=== PATIENT | female | born 1960 | race Caucasian/White ===

== ENCOUNTER → 2016-08-09 | Outpatient (REF) | payer MEDICARE, OTHER ==
[~2016-08-09] MED LIST: ALBU1.25 INH; CLON-412 PO; COMP1TAB PO; COUM1TAB19 PO; COUM7.5T PO; CYMB1CAP4 PO; PROBCAP4 PO; SYNT50TA PO; ZOFR20TA SL
== END ==
LOC: M SFHCLERA 16:41
PROVIDERS: ATTEND Family Medicine
DX: R30.0 Dysuria (principal); Z79.01 Long term (current) use of anticoagulants
CPT/HCPCS: 81002; 85610; 87086; G0463

== ENCOUNTER → 2016-08-29 | Outpatient (REF) | payer MEDICARE, OTHER | LOC: M SFHCLERA 15:22 | PROVIDERS: ATTEND Family Medicine | DX: R10.9 Unspecified abdominal pain (principal) | CPT/HCPCS: 81002; 87086; G0463 ==

== ENCOUNTER → 2016-09-13 | Outpatient (REF) | payer MEDICARE, OTHER ==
[2016-09-13 20:45] LABS: MEAN CORPUSCULAR HEMOGLOBIN 29.8 pg (27.0-33.0); MEAN CORPUSCULAR VOLUME 90.5 fl (80.0-96.0); RED CELL DISTRIBUTION WIDTH 13.3 % (11.5-14.5)
[2016-09-13 20:53] LABS: ALBUMIN/GLOBULIN RATIO 1.11 (1.00-1.93); ALKALINE PHOSPHATASE 124 U/L (45-117); ALT/SGPT 19 U/L (12-78); ANION GAP 8 MEQ/L (8-16); AST/SGOT 14 U/L (15-37); BILIRUBIN,TOTAL 0.3 MG/DL (0.2-1.0); BLOOD UREA NITROGEN 12 MG/DL (7-18); CALCIUM LEVEL 8.8 MG/DL (8.5-10.1); CARBON DIOXIDE LEVEL 26 MEQ/L (21-32); CHLORIDE LEVEL 107 MEQ/L (98-107); CHOLESTEROL LEVEL 228 MG/DL (<200); CREATININE FOR GFR 0.93 MG/DL (0.55-1.02); GLOMERULAR FILTRATION RATE > 60.0 (>51); GLUCOSE, FASTING 96 MG/DL (70-105); POTASSIUM SERUM 3.7 MEQ/L (3.5-5.1); SODIUM LEVEL 141 MEQ/L (136-145); TOTAL PROTEIN 7.6 GM/DL (6.4-8.2); TRIGLYCERIDES LEVEL 329 MG/DL (<150)
[2016-09-13 21:00] LABS: CALCIUM OXALATE CRYSTALS LARGE; YEAST LIKE CELL URINE AUTO SMALL
== END ==
LOC: M SFHCLERA 17:19
PROVIDERS: ATTEND Family Medicine
DX: R32 Unspecified urinary incontinence (principal); Z86.718 Personal history of other venous thrombosis and embolism; Z79.899 Other long term (current) drug therapy

== ENCOUNTER → 2016-09-18 | Outpatient (REF) | payer MEDICARE, OTHER ==
[2016-09-18 19:04] LABS: CALCIUM OXALATE CRYSTALS LARGE
== END ==
LOC: M LAB REF 17:10
PROVIDERS: ATTEND Nurse Practitioner Family
DX: R31.9 Hematuria, unspecified (principal)
CPT/HCPCS: 51798; 81001; 87086; 88108; G0463

== ENCOUNTER → 2016-09-28 | Outpatient (CLI) | payer MEDICARE ==
[~2016-09-28] MED LIST changes: +ISOVUE-370 76% 100ML VIAL (Q9967) As Ordered ONE
--- NOTE | 2016-09-28 16:27 | REP ---
CT abdomen pelvis without IV or bowel contrast: Comparison is 10/05/2011. There is a 4 ml calculus posterior laterally in the urinary bladder on the left. This could be in the distal intramural portion of the left ureter or could have recently passed into the urinary bladder. Additionally there is a 4 mm calculus in the distal left ureter at the level at the level of the left acetabulum. There is no left hydronephrosis or hydroureter. On the comparison study there was a small 3 mm left renal calculus. This is no longer present on the study today. There are into right renal calculi in the lower pole, nonobstructive. These were also present previously. The visualized lung shi are unremarkable. The hepatic parenchyma, gallbladder, pancreas and spleen are unremarkable and unchanged except for fatty atrophy of the pancreas, unchanged. The adrenals are unremarkable. Abdominal aorta is unremarkable except for calcified atheroma. There is no bowel distension or obstruction. Mesentery is unremarkable. Pelvis: The appendix is unremarkable. There is a hysterectomy. The vaginal cuff and adnexa are unremarkable. There is no ascites or adenopathy. The pelvic bowel loops are unremarkable. Impression: There are two calcifications in the distal left ureter as described. However, there is no hydronephrosis. The left renal calculus identified on the comparison study is no longer present. There are two nonobstructive right renal calculi, unchanged. Surgical staple lines are again noted in the pelvis bilaterally. The patient has a hysterectomy. This is unchanged. Fatty atrophy of the pancreas, unchanged. Signed by Mik Pinon MD 09/28/2016 04:19 P
== END ==
LOC: M RAD 15:14
PROVIDERS: ATTEND Nurse Practitioner Family
DX: R31.9 Hematuria, unspecified (principal)
CPT/HCPCS: 74178; Q9967

== ENCOUNTER → 2016-10-11 | Outpatient (REF) | payer MEDICARE, OTHER ==
[~2016-10-11] MED LIST changes: +ADVI200C5 PO; +CEPH500C PO; +GABA-283 PO; -ISOVUE-370 76% 100ML VIAL (Q9967) As Ordered ONE; +K-TA1TAB PO; +LEVA1TAB2 PO; +OXYB5TAB10 PO; +OXYC1TAB23 PO; +PRED20TA PO; +RANI75TA9 PO; +RISATAB3 PO
[2016-10-11 20:18] LABS: INR 1.77
== END ==
LOC: M SFHCLERA 16:39
PROVIDERS: ATTEND Family Medicine
DX: Z51.81 Encounter for therapeutic drug level monitoring (principal); Z79.01 Long term (current) use of anticoagulants
CPT/HCPCS: 85610; G0463

== ENCOUNTER 2016-10-23 19:10 | Emergency (ER) | payer MEDICARE, OTHER ==
[~2016-10-23] VITALS: Ht 157.5 cm; Wt 79.9 kg
[~2016-10-23 19:10] MED LIST changes: -ADVI200C5 PO; -CEPH500C PO; -GABA-283 PO; -K-TA1TAB PO; -LEVA1TAB2 PO; -OXYB5TAB10 PO; -OXYC1TAB23 PO; -PRED20TA PO; -RANI75TA9 PO; -RISATAB3 PO
[2016-10-23] MEDS ORDERED: PRED20TA PO (19:30)
[2016-10-23] MEDS ORDERED: LEVA1TAB2 PO (19:30)
[2016-10-23] MEDS ORDERED: GABA-283 PO (19:30)
[2016-10-23 21:03] LABS: BASO # 0.1 K/mm3 (0.0-0.2); BASO % 0.4 % (0.0-1.0); EOS # 0.2 K/mm3 (0.0-0.50); EOS % 1.4 % (0.0-3.0); LARGE UNSTAINED CELL # 0.1 K/mm3 (0.0-0.4); LARGE UNSTAINED CELL % 0.3 % (0.0-4.0); LYMPH # 1.6 K/mm3 (1.5-4.5); LYMPH % 9.4 % (24.0-44.0); MEAN CORPUSCULAR HEMOGLOBIN 29.6 pg (27.0-33.0); MEAN CORPUSCULAR HGB CONC 33.4 g/dl (32.0-36.5); MEAN CORPUSCULAR VOLUME 88.5 fl (80.0-96.0); MONO # 0.3 K/mm3 (0.0-0.8); MONO % 1.7 % (0.0-5.0); NEUTROPHILS # 14.6 K/mm3 (1.8-7.7); NEUTROPHILS % 86.8 % (36.0-66.0); PLATELET COUNT, AUTOMATED 305 k/mm3 (150-450); RED CELL DISTRIBUTION WIDTH 13.2 % (11.5-14.5); WHITE BLOOD COUNT 16.8 K/mm3 (4.0-10.0)
[2016-10-23 21:30] LABS: INR 5.71
[2016-10-23 21:42] LABS: CREATININE FOR GFR 1.07 MG/DL (0.55-1.02); GLOMERULAR FILTRATION RATE 56.9 (>51); POTASSIUM SERUM 3.9 MEQ/L (3.5-5.1)
[2016-10-23] MEDS ORDERED: ISOVUE-370 76% 100ML VIAL (Q9967) As Ordered ONE (21:55)
[2016-10-23 23:10] VITALS: BP 123/66
[2016-10-23] MEDS ORDERED: PHYTONADIONE 5 MG TAB PO ONE (23:30)
--- NOTE | 2016-10-24 06:47 | REPUSA ---
CT angiogram of the chest Clinical statement: hemoptysis. Technique: Multiple axial CT images were obtained from the thoracic inlet through the upper abdomen a fter a bolus administration of nonionic intravenous contrast. Coronal and sagittal reconstructions we re also obtained. Comparison: None. Findings: The pulmonary arteries are well-opacified with contrast, with no intraluminal filling defec ts to suggest embolism. The thoracic aorta is unremarkable. Thyroid gland is within normal limits. Th ere is no thoracic lymphadenopathy. There are no pericardial or pleural effusions. There is an irregu lar nodule in the left lung apex, measuring 2.4 x 1.2 cm. There is a small spiculated lesion in the l ateral left upper lobe measuring 1.1 x 0.8 cm. Limited imaging of the upper abdomen is unremarkable. There are no suspicious osseous lesions. Impression: 1. Large irregular nodule in the left lung apex. Smaller spiculated lesion in the lateral left upper lobe. Biopsy should be considered. Alternatively, CT/PET scan could be performed. 2. No evidence of pulmonary embolism. 3. No other acute infiltrates.
--- NOTE | 2016-10-24 10:25 | ED PDOC ---
Post-Departure Follow-Up radiology report faxed to [facility] Martita Vasquez MD Oct 24, 2016 10:25
== END 2016-10-23 23:28 | disposition home or self-care (01) ==
LOC: M ED 20:16
DX: R79.1 Abnormal coagulation profile (principal); R04.2 Hemoptysis; F17.210 Nicotine dependence, cigarettes, uncomplicated; R91.8 Other nonspecific abnormal finding of lung field; Z86.718 Personal history of other venous thrombosis and embolism; Z79.01 Long term (current) use of anticoagulants; Z79.899 Other long term (current) drug therapy
CPT/HCPCS: 71260; 80048; 85025; 85610; 85730; 99283; Q9967

== ENCOUNTER → 2016-11-02 | Outpatient (REF) | payer MEDICARE, OTHER ==
[~2016-11-02] MED LIST changes: +ADVI200C5 PO; +CEPH500C PO; +GABA-283 PO; +K-TA1TAB PO; +LEVA1TAB2 PO; +OXYB5TAB10 PO; +OXYC1TAB23 PO; +PRED20TA PO; +RANI75TA9 PO; +RISATAB3 PO
== END ==
LOC: M SFHCLERA 13:38
PROVIDERS: ATTEND Family Medicine
DX: Z86.718 Personal history of other venous thrombosis and embolism (principal)

== ENCOUNTER 2016-11-27 10:23 | Day surgery (SDC) | payer MEDICARE ==
[~2016-11-27] VITALS: Ht 157.5 cm; Wt 80.3 kg
[~2016-11-27 10:23] MED LIST changes: -ADVI200C5 PO; -CEPH500C PO; +CONRAY-60 60% 50ML VIAL (Q9961) As Ordered ONE; -K-TA1TAB PO; -OXYB5TAB10 PO; -OXYC1TAB23 PO; -RANI75TA9 PO; -RISATAB3 PO
[2016-11-27] MEDS ORDERED: LIDOCAINE 1% SDV 5 ML VIAL SQ ONE (10:30)
[2016-11-27] MEDS ORDERED: LR 1,000 ML IV ONE (11:00)
[2016-11-27 11:56] LABS: INR 1.07
[2016-11-27] MEDS ORDERED: dexameTHASONE 4 MG/ML 1ML VIAL (J1100) As Ordered ONE (14:04)
[2016-11-27] MEDS ORDERED: PROPOFOL 200 MG/20 ML VIAL As Ordered ONE (14:04)
[2016-11-27] MEDS ORDERED: ROCURONIUM BROMIDE 50 MG/5 ML VIAL/SYRINGE As Ordered ONE (14:04)
[2016-11-27] MEDS ORDERED: ONDANSETRON 4MG/2ML VIAL (J2405) As Ordered ONE (14:04)
[2016-11-27] MEDS ORDERED: MIDAZOLAM INJ 2 MG/2 ML VIAL (J2250) As Ordered ONE (14:04)
[2016-11-27] MEDS ORDERED: fentaNYL 250 MCG/5 ML INJECTION (J3010) As Ordered ONE (14:04)
[2016-11-27] MEDS ORDERED: LIDOCAINE 2% INJ 100 MG/5 ML SDV (FOR ANES.) As Ordered ONE (14:04)
[2016-11-27] MEDS ORDERED: KETOROLAC 60 MG/2 ML VIAL (J1885) As Ordered ONE (16:09)
[2016-11-27] MEDS: PERCOCET 5MG/325MG TAB PO PRN ×2 (16:28→17:19)
[2016-11-27] MEDS ORDERED: HYDROmorphone HCL 2 MG/ML 1ML VIAL (J1170) As Ordered ONE (16:28)
[2016-11-27] MEDS ORDERED: PERCOCET 5MG/325MG TAB As Ordered ONE (16:29)
[2016-11-27] MEDS ORDERED: oxyBUTYnin 5 MG TAB PO PRN (16:30)
[2016-11-27] MEDS ORDERED: PERCOCET 5MG/325MG TAB PO PRN ×2 (16:30)
[2016-11-27] MEDS: fentaNYL 100 MCG/2 ML INJECTION (J3010) IV PRN ×4 (16:42→17:06)
[2016-11-27] MEDS ORDERED: ONDANSETRON 4MG/2ML VIAL (J2405) IV PRN (16:45)
[2016-11-27] MEDS ORDERED: LR 1,000 ML IV SCH (16:45)
--- NOTE | 2016-11-27 16:49 | REP ---
Bilateral retrograde pyelogram: The procedure is performed by the urologist, Dr. Bowie. The final film demonstrates bilateral ureteral stents with the proximal and distal pigtails in satisfactory positions. Fluoroscopic exposure time is 29 seconds. Intraoperative films are performed with last image hold technology. These images require no additional radiation. Signed by Mik Pinon MD 11/27/2016 04:40 P
[2016-11-27] MEDS ORDERED: BELLADONNA ALKALOIDS/OPIUM SUPP PR ONE (18:00)
[2016-11-27] MEDS ORDERED: KETOROLAC 30 MG/ML VIAL (J1885) As Ordered ONE (20:05)
[2016-11-27] MEDS ORDERED: oxyBUTYnin 5 MG TAB PO ONE (20:15)
[2016-11-27] MEDS ORDERED: KETOROLAC 30 MG/ML VIAL (J1885) IV ONE (20:15)
[2016-11-27 21:13] VITALS: BP 133/78
--- NOTE | 2016-11-28 16:33 | RO ---
DATE OF PROCEDURE: 11/27/2016 PREPROCEDURE DIAGNOSIS: Bilateral kidney stones. POSTPROCEDURE DIAGNOSIS: Bilateral kidney stones. PROCEDURE: Cystoscopy, bilateral ureteroscopy with right-sided laser lithotripsy and bilateral basket extraction of stones, bilateral retrograde pyelograms with intraoperative interpretation of images, bilateral ureteral stent placement. SURGEON: Dr. Yousuf Bowie [employer] HEAD: None. ANESTHESIA: General. OPERATIVE INDICATIONS: This is a 56-year-old female who was found to have obstructing left-sided ureteral stones as well as large right-sided kidney stones. It was recommended she be brought to the operating room today for the above listed procedure. DESCRIPTION OF PROCEDURE: The patient was brought to the operating room where general anesthesia was induced. Prophylactic antibiotics were infused. She was then placed in the dorsal lithotomy position and prepped and draped in the usual sterile fashion. The rigid cystoscope was then inserted into the urethral meatus and advanced to the bladder. A guidewire was then advanced up the left collecting system. The wire was secured to the drape to serve as a safety wire. We then went up the left collecting system with the short semi-rigid ureteroscope and within the distal left ureter two stones were seen, one of which was about 4 mm in size and the other one was 3 mm in size. Both of these stones were removed with a basket. At this point, a retrograde pyelogram was then performed. It was notable for moderate left hydroureteronephrosis with no extravasation. I then utilized the previously placed wire to advance a 6-Macanese x 22-32 cm JJ ureteral stent up into the left collecting system. The wire was then removed and there were adequate curls of the stent in the left renal pelvis and in the bladder. I then advanced the wire up the right collecting system and the wire was then utilized to advance a ureteral access sheath up into the right collecting system. The wire was then secured to the drapes to serve as a safety wire. I then went up the access sheath with a flexible ureteroscope and within the kidney, two stones were seen within the lower pole calyx. The smallest stone was approximately 6-7 mm in size. The stone was then repositioned with the basket and lasered into smaller pieces. All of the pieces were removed with the basket. The largest stone was approximately 1 cm in size and of note, I grasped it with the basket and tried to remove it from this lower pole calyx, but the stone was too large to be removed from the calyx. Because of its location in the lower pole calyx, I was not able to see it well to laser it with the laser fiber. Because of this, I was not able to remove the stone. At this point, the ureteroscope was utilized to get a retrograde pyelogram on the right side. It was negative for extravasation. At this point, the ureteroscope was removed along with the access sheath and no stones were seen within the ureter. I then utilized the previously placed wire to advance a 6-Macanese x 22-32 cm JJ ureteral stent up into the right collecting system. The wire was then removed, and there were adequate curls of the stent in the right renal pelvis and in the bladder. At this point, the bladder was then emptied of all fluids, and this marked the conclusion of the procedure. The patient was taken out of the dorsal lithotomy position, awakened from anesthesia and transported to the recovery room in stable condition. ESTIMATED BLOOD LOSS: 0 mL. COMPLICATIONS: None. SPECIMENS: Kidney stones. PLAN: The patient will followup in the clinic in a few weeks for stent removal. SANJEEV
== END 2016-11-27 20:55 | disposition home or self-care (01) ==
LOC: M SDC 10:23
PROVIDERS: ATTEND Urology
DX: N20.0 Calculus of kidney (principal)

== ENCOUNTER 2016-11-29 15:31 | Inpatient (IN) | payer MEDICARE ==
[~2016-11-29] VITALS: Ht 157.5 cm; Wt 81.8 kg
[~2016-11-29 15:31] MED LIST changes: -CONRAY-60 60% 50ML VIAL (Q9961) As Ordered ONE
[2016-11-29] MEDS ORDERED: OXYB5TAB10 PO (15:42)
[2016-11-29] MEDS ORDERED: ADVI200C5 PO (15:42)
[2016-11-29] MEDS ORDERED: OXYC1TAB23 PO (15:42)
[2016-11-29] MEDS ORDERED: NS 1,000 ML IV ONE (16:00)
[2016-11-29] MEDS ORDERED: ONDANSETRON 4MG/2ML VIAL (J2405) IV ONE (16:00)
[2016-11-29] MEDS ORDERED: MORPHINE 4 MG/ML 1ML SYRINGE IV ONE (16:00)
[2016-11-29] MEDS ORDERED: cefTRIAXone SOD 1 GM in D5W MINI-BAG PLUS 50 ML IV ONE (16:00)
[2016-11-29 16:21] LABS: BASO # 0.2 K/mm3 (0.0-0.2); BASO % 1.2 % (0.0-1.0); EOS # 0.4 K/mm3 (0.0-0.50); EOS % 2.1 % (0.0-3.0); LARGE UNSTAINED CELL # 0.1 K/mm3 (0.0-0.4); LARGE UNSTAINED CELL % 0.7 % (0.0-4.0); LYMPH # 2.1 K/mm3 (1.5-4.5); LYMPH % 11.3 % (24.0-44.0); MEAN CORPUSCULAR HEMOGLOBIN 30.1 pg (27.0-33.0); MEAN CORPUSCULAR HGB CONC 34.7 g/dl (32.0-36.5); MEAN CORPUSCULAR VOLUME 86.7 fl (80.0-96.0); MONO # 1.2 K/mm3 (0.0-0.8); MONO % 6.9 % (0.0-5.0); NEUTROPHILS # 13.4 K/mm3 (1.8-7.7); NEUTROPHILS % 77.8 % (36.0-66.0); PLATELET COUNT, AUTOMATED 221 k/mm3 (150-450); RED CELL DISTRIBUTION WIDTH 13.2 % (11.5-14.5); WHITE BLOOD COUNT 17.2 K/mm3 (4.0-10.0)
[2016-11-29 16:44] LABS: CALCIUM LEVEL 9.2 MG/DL (8.5-10.1); CREATININE FOR GFR 1.38 MG/DL (0.55-1.02); GLOMERULAR FILTRATION RATE 42.4 (>51); POTASSIUM SERUM 3.9 MEQ/L (3.5-5.1)
--- NOTE | 2016-11-29 17:56 | REP ---
CT of the abdomen pelvis without IV or bowel contrast: Comparison is 09/28/2016. There are bilateral nephrostomies. There is no hydronephrosis. No renal or ureteral calculi are identified. The bladder is collapsed and is difficult to assess. No definite bladder calculi are identified. There is no perinephric stranding. The visualized lung shi are unremarkable. The unenhanced liver, gallbladder, pancreas and spleen are unchanged. Fatty atrophy of the pancreas is again identified. The adrenals are unremarkable. There is a right renal upper pole cyst, unchanged. There is no hydronephrosis. There are no renal or ureteral calculi. There are bilateral nephrostomies. No perinephric stranding. No bowel distension. Pelvis: There is no adenopathy or ascites. The pelvic bowel loops are unremarkable. Impression: Bilateral nephrostomies. No hydronephrosis. No renal or ureteral calculi. No perinephric stranding. Signed by Mik Pinon MD 11/29/2016 05:47 P
--- NOTE | 2016-11-29 18:03 | REP ---
REASON: Bilateral ureteral stent placement. Bilateral double J stent catheters are present. The proximal portion of each appears to be in the renal pelvic region on the distal portion of each in the urinary bladder region Signed by Alfred Taylor DO 11/30/2016 10:42 A
[2016-11-29] MEDS ORDERED: RANI75TA9 PO (18:42)
[2016-11-29] MEDS ORDERED: ALBUTEROL SULFATE 2.5 MG/0.5 ML INH NEB SOLN INH PRN (20:15)
[2016-11-29 20:35] VITALS: BP 130/68
[2016-11-29] MEDS ORDERED: KCL 20MEQ IN D5/0.45NS 1000ML 1,000 ML IV SCH (20:45)
[2016-11-29] MEDS ORDERED: MORPHINE 4 MG/ML 1ML SYRINGE IV PRN (20:45)
[2016-11-29] MEDS ORDERED: ONDANSETRON 4MG/2ML VIAL (J2405) IV PRN (21:00)
[2016-11-29] MEDS ORDERED: cefTRIAXone SOD 1 GM in D5W MINI-BAG PLUS 50 ML IV SCH (21:00)
[2016-11-29] MEDS: GABAPENTIN 400 MG CAP PO SCH (21:07)
[2016-11-29] MEDS: PERCOCET 5MG/325MG TAB PO PRN (21:08)
[2016-11-29] MEDS: GENTAMICIN 80 MG in APPROPRIATE DILUENT 1 EA IV SCH (21:08)
[2016-11-30] MEDS ORDERED: NS 500 ML IV ONE (05:15)
[2016-11-30 05:16] LABS: ADD MANUAL DIFFER YES; MEAN CORPUSCULAR HEMOGLOBIN 29.8 pg (27.0-33.0); MEAN CORPUSCULAR HGB CONC 33.8 g/dl (32.0-36.5); MEAN CORPUSCULAR VOLUME 88.3 fl (80.0-96.0); PLATELET COUNT, AUTOMATED 167 k/mm3 (150-450); RED CELL DISTRIBUTION WIDTH 13.4 % (11.5-14.5); WHITE BLOOD COUNT 16.5 K/mm3 (4.0-10.0)
[2016-11-30] MEDS ORDERED: IBUPROFEN 800 MG TAB PO ONE (05:30)
[2016-11-30 05:37] LABS: ALBUMIN 3.2 GM/DL (3.2-5.2); ALBUMIN/GLOBULIN RATIO 0.73 (1.00-1.93); BILIRUBIN,TOTAL 0.4 MG/DL (0.2-1.0); CALCIUM LEVEL 8.7 MG/DL (8.5-10.1); CREATININE FOR GFR 1.53 MG/DL (0.55-1.02); GLOMERULAR FILTRATION RATE 37.7 (>51); POTASSIUM SERUM 4.3 MEQ/L (3.5-5.1); TOTAL PROTEIN 7.6 GM/DL (6.4-8.2)
[2016-11-30 05:50] LABS: BANDS 1 % (< 11); EOSINOPHILS 1 % (0-5)
--- NOTE | 2016-11-30 05:53 | IPNPDOC ---
Text Note Date of Service The patient was seen on 11/30/16. NOTE Patient is a 56 yo F who was admitted for pyelonephritis and apparently a postoperative infection after a lithotripsy last week. Nurse stated patient was discharged on the . I was informed around 4 AM this morning that Ms. Mancera had a temperature of 104.6, a RR of 22, which was new. Her WBC was 17.2 on labs from admission. Nurse stated she placed ice bags and had given percocet ~10 minutes before I spoke to her between 4 and 4:30 AM. Nurse said patient had fever, chills, pain in suprapubic area, but no chest pain. Nurse stated patient had not urinated much and only urinated 100 ccs and a bladder scan had shown nothing despite patient being on D5 1/2 NS at a rate of 100 mLs/hr. Nurse stated that patient had SOB with walking. I asked nurse to take a new set of vital signs. I was told new VS were: T 104.5, P 120-125, RR 22, O2 saturation 83% on room air, BP 155/75. Patient was placed on 3 liters oxygen via nasal cannula and patient's O2 saturation went up to 92%. She urinated around 50 ccs of dark urine before I saw her without blood. Nurse stated patient began to have a hacking cough which was more frequent than before. Patient herself stated to me that her cough felt worse than prior and she coughed up "gutierrez" phlegm yesterday. Patient denied chest pain, admitted to SOB that was new and worse than at her baseline as she has COPD. She admitted to some nausea as well. She denied abdominal pain. She admitted to suprapubic pain. Brief Physical Examination: Heart: Tachycardic, Regular Rhythm Lungs: mild crackles at bases and scattered end expiratory wheezes appreciable. Abdomen: soft, nontender, nondistended bowel sounds present : +Suprapubic tenderness to palpation. I ordered STAT labs: blood cx, CBC, CMP, lactic acid level, ABG. In addition: I ordered a PA and Lateral CXR. I also ordered a 500 CC bolus and a 1 time dose of motrin 800 mg. I had informed the nurse to inform the primary team and update them regarding this patient's condition. VS,Chelye, I+O VS, Fishbone, I+O Laboratory Tests 11/29/16 16:03 Red Blood Count 4.90, Mean Corpuscular Volume 86.7, Mean Corpuscular Hemoglobin 30.1, Mean Corpuscular Hemoglobin Concent 34.7, Red Cell Distribution Width 13.2 , Neutrophils (%) (Auto) 77.8 H, Lymphocytes (%) (Auto) 11.3 L, Monocytes (%) ( Auto) 6.9 H, Eosinophils (%) (Auto) 2.1, Basophils (%) (Auto) 1.2 H, Neutrophils # (Auto) 13.4 H, Lymphocytes # (Auto) 2.1, Monocytes # (Auto) 1.2 H , Eosinophils # (Auto) 0.4, Basophils # (Auto) 0.2, Calcium Level 9.2 11/30/16 05:03 Red Blood Count 4.83, Mean Corpuscular Volume 88.3, Mean Corpuscular Hemoglobin 29.8, Mean Corpuscular Hemoglobin Concent 33.8, Red Cell Distribution Width 13.4 Vital Signs Date Time Temp Pulse Resp B/P (MAP) Pulse Ox O2 Delivery O2 Flow Rate FiO2 11/30/16 04:34 Nasal Cannula 3.0 11/29/16 21:38 18 11/29/16 20:35 99.0 100 130/68 (88) 95 I&O- Last 24 Hours up to 6 AM 11/30/16 06:00 Intake Total 0 ml Output Total 200 ml Balance -200 ml GME ATTESTATION GME ATTESTATION My preceptor for this patient encounter was Dr. Canelo Forbes, and was physically present in the building during the encounter and was fully available. As needed, all aspects of the patient interview, examination, medical decision making process, and medical care plan development were reviewed and approved by the preceptor. Preceptor is aware and concurs with the plan as stated in the body of this note and will attest to such by his/her cosignature. MAXINE CHAMBERS OGME-1 Nov 30, 2016 05:52
[2016-11-30 05:59] LABS: ABG BASE EXCESS -1.6 (-2.0-2.0); ABG HCO3 22.1 MEQ/L (22.0-26.0); ABG PARTIAL PRESSURE CO2 34.3 mmHg (35.0-45.0); ABG PARTIAL PRESSURE O2 52.1 mmHg (75.0-100.0); ABG STANDARD HCO3 22.9 MEQ/L (22.0-26.0); ABG TOTAL CO2 23.1 MEQ/L (22.0-29.0); ABG pH (ARTERIAL) 7.426 UNITS (7.350-7.450)
[2016-11-30 06:00] VITALS: BP 110/72
--- NOTE | 2016-11-30 06:00 | REPUSA ---
CLINICAL HISTORY: Fever and cough. COMMENTS: PA and lateral views of chest reveal airspace infiltrates in the lingula. Airspace infiltrates in the right lung base. The cardiac silhouette is enlarged. The mediastinum and pulmonary vessels appear normal. Aorta is tor tuous. Degenerative changes are noted in the thoracic spine. IMPRESSION: Airspace infiltrates in the lingula. Airspace infiltrates in the right lung base. Enlarged cardiac silhouette. Tortuous aorta. Thank you for your kind referral of this patient.
[2016-11-30] MEDS: GENTAMICIN 80 MG in APPROPRIATE DILUENT 1 EA IV SCH ×2 (06:59→14:35)
[2016-11-30] MEDS: NS 1,000 ML IV SCH ×3 (07:45→22:31)
--- NOTE | 2016-11-30 08:54 | SMCUROLCON ---
Urology Consultation General Date of Consultation 11/30/16 Reason For Consultation This patient is seen for Pyelonephritis. 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 She notes that since her surgery she has had constant bladder pain and dysuria. She denied flank pain. Labs in the ED were notable for a WBC of 17.2 and [address] fevers. A CT A/P was obtained as well and notable for b/l stents in good position w/ no hydronephrosis and a residual 1cm lower pole right renal stone. Urine and blood cultures were obtained in the ED and rocephin and gentamicin were started. Despite this, the patient continued to spike fevers o/n up to 104. She was evaluated by the hospitalist service o/n and a CXR was obtained which was concerning for a possible right sided pneumonia. This morning the patient feels a little better. She notes that the bladder pain has not improved. Past Medical History Medical History see HPI Surgical Hstory see HPI Medications Current Medications Current Medications Acetaminophen (Tylenol Arthritis Er) 650 mg Q8HP PRN PO TEMP >101; MILD PAIN; Start 11/29/16 at 21:00; Stop 12/29/16 at 20:59 Albuterol Sulfate (Proventil Neb) 1.25 mg Q4HP PRN INH SHORTNESS OF BREATH; Start 11/29/16 at 20:15; Stop 12/29/16 at 20:14 Ceftriaxone Sodium 1 gm/ Dextrose 50 ml @ 100 mls/hr Q24H IV ; Start 11/29/16 at 21:00; Stop 12/06/16 at 20:59; Status Cancel Ceftriaxone Sodium 1 gm/ Dextrose 50 ml @ 100 mls/hr Q24H IV ; Start 11/30/16 at 16:00; Stop 12/07/16 at 15:59 Famotidine (Pepcid) 10 mg DAILY PO ; Start 11/30/16 at 09:00; Stop 12/30/16 at 08: 59 Gabapentin (Neurontin) 800 mg BID PO Last administered on 11/29/16 21:07; Start 11/29/16 at 21:00; Stop 12/29/16 at 20:59 Gentamicin Sulfate 80 mg/IV Miscellaneous Supplies 100 ml @ 200 mls/hr Q8H IV Last administered on 11/30/16 06:59; Start 11/29/16 at 22:00; Stop 12/06/16 at 21: 59 Home Med (Med Rec Complete!) ASDIRECTED XX ; Start 11/29/16 at 18:45; Stop at 18:46; Status DC Lactobacillus Acidophilus (Bacid) 1 ea DAILY PO ; Start 11/30/16 at 09:00; Stop 12/30/16 at 08:59 Levofloxacin 750 mg/IV Miscellaneous Supplies 150 ml @ 100 mls/hr Q48H IV ; Start 11/30/16 at 09:00; Stop 12/07/16 at 08:59 Morphine Sulfate (Morphine Sulfate Inj) 4 mg Q3HP PRN IV SEVERE PAIN (PS 8-10) ; Start 11/29/16 at 20:45; Stop 12/06/16 at 20:44 Ondansetron HCl (ZOFRAN INJection) 4 mg Q8HP PRN IV NAUSEA OR VOMITING; Start 11/29/16 at 21:00; Stop 12/29/16 at 20:59 Oxycodone HCl (Roxicodone, Oxyir) 5 mg Q4HP PRN PO SEVERE PAIN (PS 8-10); Start 11/29/16 at 21:00; Stop 12/06/16 at 20:59 Oxycodone/ Acetaminophen (Percocet 5mg/ 325mg Tablet) 1 tab Q4H PRN PO PAIN Last administered on 11/29/16 21:08; Start 11/29/16 at 20:15; Stop 12/06/16 at 20: 14 Potassium Chloride/Dextrose/ Sod Cl 1,000 ml @ 100 mls/hr Q10H IV Last administered on 11/29/16 20:45; Start 11/29/16 at 20:45; Stop 11/30/16 at 07:25; Status DC Sodium Chloride 1,000 ml @ 125 mls/hr Q8H IV Last administered on 11/30/16 07: 45; Start 11/30/16 at 07:30; Stop 12/30/16 at 07:29 Allergies Allergies: Coded Allergies: No Known Allergies (Unverified , 10/23/16) Review of Systems General: Reports: Chills Constitutional: Reports: Fever Skin: Denies: Rash, Lesions, Breakdown, Nail Changes Pulmonary: Denies: Dyspnea, Cough Cardiovascular: Denies Chest Pain, Denies Palpitations Gastrointestinal: Reports: Abdominal Pain Genitourinary: Reports: Dysuria Neurological: Denies: Weakness, Numbness, Incoordination, Change in Speech Psych: Reports: Mood Normal, Denies: Anxiety, Depression Physical Examination General Exam: Alert, Cooperative, No Acute Distress ENT EXAM: Atraumatic Chest Exam: Clear to auscultation Heart Exam: Rate Normal, Regular Rhythm Abdomen Exam: Other (mild suprapubic tenderness) Female Exam catheter in place draining tere colored urine Skin Exam: Nl turgor and temperature Neuro Exam: Normal Speech Psych Exam: Mental status NL, Mood NL Vital Signs/I&O Vital Signs Date Time Temp Pulse Resp B/P (MAP) Pulse Ox O2 Delivery O2 Flow Rate FiO2 11/30/16 06:00 103.0 115 18 110/72 (85) 92 Room Air 11/30/16 04:34 3.0 I&O- Last 24 Hours up to 6 AM 11/30/16 06:00 Intake Total 100 ml Output Total 300 ml Balance -200 ml Laboratory Data 24H Labs Laboratory Tests 2 11/29/16 16:03: White Blood Count 17.2H, Red Blood Count 4.90, Hemoglobin 14.8, Hematocrit 42.5 , Mean Corpuscular Volume 86.7, Mean Corpuscular Hemoglobin 30.1, Mean Corpuscular Hemoglobin Concent 34.7, Red Cell Distribution Width 13.2, Platelet Count 221, Neutrophils (%) (Auto) 77.8H, Lymphocytes (%) (Auto) 11.3L, Monocytes (%) (Auto) 6.9H, Eosinophils (%) (Auto) 2.1, Basophils (%) (Auto) 1.2H , Neutrophils # (Auto) 13.4H, Lymphocytes # (Auto) 2.1, Monocytes # (Auto) 1.2H , Eosinophils # (Auto) 0.4, Basophils # (Auto) 0.2, Large Unclassified Cells % 0.7, Large Unclassified Cells # 0.1, Urine Appearance CLOUDYH, Urine Color TERE , Urine pH 6.0, Urine Specific [place] 1.014, Urine Protein 2+H, Urine Glucose ( UA) NEGATIVE, Urine Ketones NEGATIVE, Urine Urobilinogen 0.2, Urine Bilirubin NEGATIVE, Urine Leukocyte Esterase 3+H, Urine Blood 3+H, Urine Nitrite POSITIVE , Urine WBC (Auto) TNTCH, Urine RBC (Auto) TNTCH, Urine Hyaline Casts (Auto) 7, Urine Bacteria (Auto) 1+H, Urine Squamous Epithelial Cells 0, Urine Amorphous Sediment SMALLH, Urine Sperm (Auto) , Anion Gap 12, Glomerular Filtration Rate 42.4L, Lactic Acid Level 1.9, Blood Urea Nitrogen 18, Creatinine 1.38H, Sodium Level 137, Potassium Level 3.9, Chloride Level 103, Carbon Dioxide Level 22, Calcium Level 9.2 11/30/16 05:03: Anion Gap 10, Glomerular Filtration Rate 37.7L, Lactic Acid Level 1.9, Blood Urea Nitrogen 15, Creatinine 1.53H, Sodium Level 135L, Potassium Level 4.3, Chloride Level 104, Carbon Dioxide Level 21, Calcium Level 8.7, Neutrophils 75, Band Neutrophils 1, Lymphocytes (Manual) 9L, Monocytes (Manual) 12H, Eosinophils (Manual) 1, Atypical Lymphocytes 2, Platelet Estimate NORMAL, Red Blood Cell Morphology NORMAL, Aspartate Amino Transf (AST/SGOT) 18, Alanine Aminotransferase (ALT/SGPT) 15, Alkaline Phosphatase 95, Total Bilirubin 0.4, Total Protein 7.6, Albumin 3.2, Albumin/Globulin Ratio 0.73L 11/30/16 05:54: Blood Gas Bicarbonate Standard 22.9, Arterial Blood pH 7.426, Arterial Blood Partial Pressure CO2 34.3L, Arterial Blood Partial Pressure O2 52.1L, Arterial Blood Total CO2 23.1, Arterial Blood HCO3 22.1, Arterial Blood Base Excess -1.6 , Arterial Blood Oxygen Saturation 88.2L CBC/BMP Laboratory Tests 11/29/16 16:03 Red Blood Count 4.90, Mean Corpuscular Volume 86.7, Mean Corpuscular Hemoglobin 30.1, Mean Corpuscular Hemoglobin Concent 34.7, Red Cell Distribution Width 13.2 , Neutrophils (%) (Auto) 77.8 H, Lymphocytes (%) (Auto) 11.3 L, Monocytes (%) ( Auto) 6.9 H, Eosinophils (%) (Auto) 2.1, Basophils (%) (Auto) 1.2 H, Neutrophils # (Auto) 13.4 H, Lymphocytes # (Auto) 2.1, Monocytes # (Auto) 1.2 H , Eosinophils # (Auto) 0.4, Basophils # (Auto) 0.2, Calcium Level 9.2 11/30/16 05:03 Red Blood Count 4.83, Mean Corpuscular Volume 88.3, Mean Corpuscular Hemoglobin 29.8, Mean Corpuscular Hemoglobin Concent 33.8, Red Cell Distribution Width 13.4 , Calcium Level 8.7, Aspartate Amino Transf (AST/SGOT) 18, Alanine Aminotransferase (ALT/SGPT) 15, Alkaline Phosphatase 95, Total Bilirubin 0.4, Total Protein 7.6, Albumin 3.2 Microbiology Microbiology 11/30/16 Blood Culture, Received Pending 11/29/16 Blood Culture, Received Pending 11/29/16 Blood Culture, Received Pending 11/29/16 Urine Culture, Received Pending Assessment This is a 56 y/o F who is POD3 s/p cysto, b/l ureteroscopy w/ laser lithotripsy , and b/l ureteral stent placement, admitted w/ possible urosepsis and pneumonia. Plan - hospitalist service consulted - appreciate assistance w/ this patient - continue broad spectrum antibiotics - will f/u on urine and blood cultures - keep catheter in for now to maximize urinary drainage - 0.9% NS @ 125/hr - percocet/morphine prn pain - SCDs - ambulate - regular diet ROBIN MUNGUIA MD Nov 30, 2016 08:54
--- NOTE | 2016-11-30 09:13 | CR ---
DATE OF CONSULTATION: 11/29/2016 CHIEF COMPLAINT: 56-year-old female complaining of pubic pain with fever status post cystoscopy, lithotripsy and stent placement yesterday. 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 Bowie yesterday. Patient developed fever, groin pain, dysuria, in addition increase in frequency, therefore came to the emergency room for further evaluation. In the emergency room, patient was noted to have leukocytosis with creatinine of 1.38, worsening renal function with normal lactate but positive urinary tract infection and had abdominal CT done, which showed bilateral nephrostomies but no hydronephrosis and no renal or ureteral calculi, no perinephritic. Patient is being admitted for post procedural pyelonephritis. Hospitalist was consulted for medical management. Patient is currently in minor treatment and still has some groin pain but no rebound tenderness, slight guarding. No overt fever at this time, but initially when she came in temperature was 102.9, improved to 96.9 at this time. No nausea and no vomiting. REVIEW OF SYSTEMS: Ten-point review of systems is negative other than those described in the history of present illness. PAST MEDICAL HISTORY: Significant for kidney stones, pulmonary embolism, currently on Coumadin for the past 10-12 years, silicosis of the lung due secondary due to chemical exposure to aluminum oxide, fibromyalgia, currently not on any medication. SURGICAL HISTORY: Includes hysterectomy, tubal ligation, lipoma removal, hernia repair, back surgery. SOCIAL HISTORY: Patient denies smoking, but she quit 4 weeks ago. Denies of any intravenous (IV) drug abuse or alcohol consumption. She has NO KNOWN DRUG ALLERGIES. MEDICATIONS: From home are as follow: - albuterol as needed for shortness of breath - gabapentin 800 mg by mouth twice a day - ibuprofen 400 mg by mouth four times a day as needed for pain - probiotic one capsule by mouth daily - oxybutynin 5 mg as needed for bladder spasm - oxycodone/acetaminophen one tablet every 4 hours as needed of 5/325 mg - ranitidine one tablet daily as needed for heartburn - warfarin 7.5 mg by mouth nightly In terms of physical examination on her vital signs are as follows: Initially, she had a fever of 102.9, heart rate of 114, respiratory rate of 16, blood pressure is 127/66, saturating 95% on room air. Currently, her temperature is 96.9, heart rate of 103 - improved, respiratory rate of 18, blood pressure is 114/67, saturating 94% on room air. In terms of physical examination, her vital signs are as follows: Temperature 98.6, heart rate 76, respiratory rate of 18, saturating 96% on room air. Blood pressure is 116/75. These are the last vitals. HEENT: Normocephalic. No trauma noted. Inspection of the eyes, nose and throat were normal. Pupils equal, round, and reactive to light and accommodation (PERRLA). Mucosa is moist. Neck is supple. No tracheal deviation. Cardiac brown: S1, S2. Slightly tachycardic. Pulses present. Lungs: Equal air entry. Denied any wheezes, rales or rhonchi. Abdomen is tender on palpation of the lower pubic area. There is some slight guarding but no rigidity. No peritoneal sign. Lower extremities: No significant pitting edema. Capillary refill present in all four extremities. Skin is intact, warm to touch, afebrile at this time, but was febrile earlier today. Patient is currently awake, alert, oriented times three. Cranial nerves grossly intact. Motor and sensory is intact. Normal mood and affect for current situation. DIAGNOSTIC STUDIES: Patient had WBC of 17.2. Hemoglobin and hematocrit is within normal. Platelet count is within normal. Basic metabolic profile is within normal except for creatinine of 1.3, which is worsening from previous study. Glucose is 128. Lactate is within normal. Calcium is within normal. UA is positive for urinary tract infection. Her previous kidney function in September of this year was 1.07. Patient also had blood culture, urine culture that is pending. Imaging: Abdominal x-ray showed bilateral double J stent catheter are present. The proximal portion of each appears to be in the renal pelvic region on the distal portion of each in the urinary bladder region. Patient's CT of the abdomen showed bilateral nephrostomies. No hydronephrosis. No renal or ureteral calculi. No perinephric stranding. ASSESSMENT AND PLAN: This is a pleasant, 56-year-old female with significant past medical history of kidney stones, status post lithotripsy and stent placement yesterday by urology with comorbidities of pulmonary embolism who has been taking Coumadin for the past 10-12 years but had it held for a week for the procedure of stent placement yesterday, along with comorbidities silicosis of the lung due to chemical exposure of aluminum oxide, fibromyalgia, who is presenting complaining of fever and urinary tract infection. 1. Post procedural urinary tract infection, pyelonephritis. Patient to continue IV fluids, supportive therapy and Rocephin was received in the emergency room. We will provide her with broad-spectrum antibiotic of cefepime and taper depending on culture sensitivity, but it seems urology ordered antibiotics; thus , will defer further management to Dr. Sanders the urologist. 2. History of pulmonary embolism. At this time, we will hold off on Coumadin and defer anticoagulant therapy to urology. If no procedure is planned within a short period of time, patient may resume Coumadin therapy. Currently, patient is saturating well on room air, slightly tachycardic from the fever and infection most likely. If her symptoms do not improve with antibiotic therapy and fluids, we will CTA of the chest for further evaluation. 3. History of lung silicosis. Respiratory treatment as per home regimen. 4. Fibromyalgia. Resume gabapentin. 5. Gastroesophageal reflux disease (GERD). Resume ranitidine. 6. Chronic pain. Will defer to Dr. Sanders, but resume also her oxycodone as well. Defer bladder spasm therapy of oxybutynin to Dr. Sanders as well. 7. Deep venous thrombosis (DVT) prophylaxis as per surgery. [facility]
[2016-11-30] MEDS: FAMOTIDINE 20 MG TAB PO SCH (09:54)
[2016-11-30] MEDS: GABAPENTIN 400 MG CAP PO SCH ×2 (09:54→22:31)
[2016-11-30] MEDS: LACTOBACILLUS ACIDOPHILUS CAP (BACID) PO SCH (09:54)
[2016-11-30] MEDS: LevoFLOXacin IV 750 MG in APPROPRIATE DILUENT 1 EA IV SCH (09:54)
--- NOTE | 2016-11-30 13:39 | CR ---
DATE OF CONSULTATION: 11/29/2016 REASON FOR CONSULTATION: Fevers, chills in a patient that is status post day number 2 from a cystoscopy, bilateral ureteroscopy with right sided laser lithotripsy and bilateral basket extraction of stones plus bilateral retrograde pyelograms with intraoperative interpretations of images plus bilateral ureteral stent placement done by Dr. Yousuf Bowie on 11/27/2016. CHIEF COMPLAINT: Fever, chills, flank pain. HISTORY OF PRESENT ILLNESS: This is a female patient who is 56 years old, status post two days from a urological procedure for bilateral kidney stones. The patient has developed fever, flank pain, chills, white blood count of 17,000. For this reason, she came to the emergency department where they actually did blood cultures and urine cultures. The patient had a CT scan of the abdomen and pelvis, which actually shows stents in normal position. There are a few stones on the right side still. The left side is unremarkable. There is mild stranding on the right side. PHYSICAL EXAMINATION: The patient is awake, oriented times three, well nourished, well hydrated. HEENT: Negative. LUNGS: Clear to auscultation. HEART: Regular rate and rhythm. ABDOMEN: Soft, nontender, nondistended. Percussion negative. MUSCULOSKELETAL: Motor and sensory intact. Able to move her upper and lower extremities. IMAGING STUDIES: CT scan of the abdomen and pelvis shows mild stranding in the right kidney, bilateral JJ stent draining both kidneys very well. IMPRESSION/PLAN: The patient with pyelonephritis, status post endourologic procedure for bilateral kidney stones. PLAN: Admission for IV antibiotics pending cultures. Once cultures are cleared, she will have to have a second look of the right kidney to clear stones in the right collecting system. The patient will be admitted by urology, Dr. Yousuf Bowie, and she will be under antibiotic therapy prior to any endourologic manipulation.
[2016-11-30 14:00] VITALS: BP 120/71
--- NOTE | 2016-11-30 15:31 | IPNPDOC ---
Date Seen The patient was seen on 11/30/16. Progress Note Hospitalist Progress Note Subjective: Patient states that she is overall not feeling well, she has a lot of pressure in her suprapubic region and has been coughing Objective: Physical Exam: Vitals: Vital Sign - Last 24 Hours 11/29/16 11/29/16 11/29/16 11/29/16 15:31 15:37 16:00 16:08 Temp 102.9 101.3 Pulse 144 Resp 16 18 B/P (MAP) 127/66 (86) Pulse Ox 95 O2 Delivery Room Air 11/29/16 11/29/16 11/29/16 11/29/16 17:14 18:07 19:38 20:35 Temp 99.4 96.9 99.0 Pulse 129 103 100 Resp 20 18 18 18 B/P (MAP) 101/70 (80) 114/67 (83) 130/68 (88) Pulse Ox 96 94 95 O2 Delivery Room Air Room Air Room Air 11/29/16 11/29/16 11/30/16 11/30/16 21:08 21:38 04:34 05:39 Temp 103.0 Resp 20 18 O2 Delivery Room Air Nasal Cannula O2 Flow Rate 3.0 11/30/16 11/30/16 11/30/16 11/30/16 06:00 07:45 07:50 09:52 Temp 103.0 100.1 99.0 Pulse 115 90 102 Resp 18 18 18 B/P (MAP) 110/72 (85) Pulse Ox 92 95 94 O2 Delivery Room Air Nasal Cannula Nasal Cannula Nasal Cannula O2 Flow Rate 1.0 1.0 1.0 General: Sleeping, but easily awoken, no acute distress HEENT: Normal cephalic, atraumatic, extraocular movements intact CV: Regular rate and rhythm Lungs: Clear to auscultation bilaterally Abd: Soft, mildly distended, diffuse tenderness to palpation in the bilateral lower quadrants and suprapubic region Extremities: No edema Neuro: Alert and oriented 3, normal speech Psych: Normal mood and affect Labs and Imaging: Laboratory Tests 11/29/16 16:03 Red Blood Count 4.90, Mean Corpuscular Volume 86.7, Mean Corpuscular Hemoglobin 30.1, Mean Corpuscular Hemoglobin Concent 34.7, Red Cell Distribution Width 13.2 , Neutrophils (%) (Auto) 77.8 H, Lymphocytes (%) (Auto) 11.3 L, Monocytes (%) ( Auto) 6.9 H, Eosinophils (%) (Auto) 2.1, Basophils (%) (Auto) 1.2 H, Neutrophils # (Auto) 13.4 H, Lymphocytes # (Auto) 2.1, Monocytes # (Auto) 1.2 H , Eosinophils # (Auto) 0.4, Basophils # (Auto) 0.2, Calcium Level 9.2 11/30/16 05:03 Red Blood Count 4.83, Mean Corpuscular Volume 88.3, Mean Corpuscular Hemoglobin 29.8, Mean Corpuscular Hemoglobin Concent 33.8, Red Cell Distribution Width 13.4 , Calcium Level 8.7, Aspartate Amino Transf (AST/SGOT) 18, Alanine Aminotransferase (ALT/SGPT) 15, Alkaline Phosphatase 95, Total Bilirubin 0.4, Total Protein 7.6, Albumin 3.2 Assessment and Plan: 56-year-old female with history of nephrolithiasis, remote pulmonary embolism for which she has been on Coumadin for the past 10-12 years, 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 Bowie the day prior to presentation. She presented to the ER with fevers and pubic pain and is admitted with pyelonephritis and acute kidney injury. She has also been found to have a likely pneumonia. We have been consulted by urology for help in managing these postoperative medical complications. 1. Pyelonephritis: The patient continues to be febrile, although there has been a mild improvement in her white count from 17.2-16.5. Imaging does not show any evidence of hydronephrosis. Blood cultures are pending, and a urine culture actually shows no growth. The patient has been on Rocephin and gent, but given the concern for pneumonia, we will switch her to Levaquin, which should most likely cover both issues. Management of nephrostomies as per the urology team. 2. Acute kidney injury: The patient's creatinine upon admission was 1.38, and has now jumped to 1.53. Overnight, she received a bolus of fluids, and we will continue IV fluids. Continue to monitor. 3. Pneumonia: The patient has been complaining of a cough and sputum production , chest x-ray does show concern for an infiltrate in both the lingula and the right base. It is unclear if this is a poorly timed community-acquired pneumonia , or if potentially, she aspirated when she received general anesthesia for her recent procedure. At this time, we will change her antibiotics to Levaquin, which should cover both possibilities, as well as likely cover her pyelonephritis. 4. History of remote pulmonary embolism: The patient has been on Coumadin for the last 10-12 years, but this was stopped preoperatively in anticipation of her surgery. At this time, we would recommend that if urology has no further plans to take her to the operating room, that her home dose of Coumadin be restarted. I have discussed this with Dr. Bowie, and he feels that it would be fine for her to resume her full anticoagulation. We will monitor the patient' s respiratory status closely. Although it does appear that she likely has a pneumonia on her chest x-ray, if she does not improve as expected, we will evaluate with a CTA. 5. Fibromyalgia: Continue home medications DVT prophylaxis: At this time, given the patient's history of PE and the fact that she is currently off of her Coumadin, I would recommend the patient currently be on prophylactic Lovenox until her INR is therapeutic again VS, I&O, 24H, Fishbone Vital Signs/I&O Vital Signs Date Time Temp Pulse Resp B/P (MAP) Pulse Ox O2 Delivery O2 Flow Rate FiO2 11/30/16 09:52 99.0 102 18 94 Nasal Cannula 1.0 11/30/16 06:00 110/72 (85) I&O- Last 24 Hours up to 6 AM 11/30/16 05:59 Intake Total 100 ml Output Total 250 ml Balance -150 ml Laboratory Data 24H LABS Laboratory Tests 2 11/29/16 16:03: White Blood Count 17.2H, Red Blood Count 4.90, Hemoglobin 14.8, Hematocrit 42.5 , Mean Corpuscular Volume 86.7, Mean Corpuscular Hemoglobin 30.1, Mean Corpuscular Hemoglobin Concent 34.7, Red Cell Distribution Width 13.2, Platelet Count 221, Neutrophils (%) (Auto) 77.8H, Lymphocytes (%) (Auto) 11.3L, Monocytes (%) (Auto) 6.9H, Eosinophils (%) (Auto) 2.1, Basophils (%) (Auto) 1.2H , Neutrophils # (Auto) 13.4H, Lymphocytes # (Auto) 2.1, Monocytes # (Auto) 1.2H , Eosinophils # (Auto) 0.4, Basophils # (Auto) 0.2, Large Unclassified Cells % 0.7, Large Unclassified Cells # 0.1, Urine Appearance CLOUDYH, Urine Color SOLEDAD , Urine pH 6.0, Urine Specific [place] 1.014, Urine Protein 2+H, Urine Glucose ( UA) NEGATIVE, Urine Ketones NEGATIVE, Urine Urobilinogen 0.2, Urine Bilirubin NEGATIVE, Urine Leukocyte Esterase 3+H, Urine Blood 3+H, Urine Nitrite POSITIVE , Urine WBC (Auto) TNTCH, Urine RBC (Auto) TNTCH, Urine Hyaline Casts (Auto) 7, Urine Bacteria (Auto) 1+H, Urine Squamous Epithelial Cells 0, Urine Amorphous Sediment SMALLH, Urine Sperm (Auto) , Anion Gap 12, Glomerular Filtration Rate 42.4L, Lactic Acid Level 1.9, Blood Urea Nitrogen 18, Creatinine 1.38H, Sodium Level 137, Potassium Level 3.9, Chloride Level 103, Carbon Dioxide Level 22, Calcium Level 9.2 11/30/16 05:03: Anion Gap 10, Glomerular Filtration Rate 37.7L, Lactic Acid Level 1.9, Blood Urea Nitrogen 15, Creatinine 1.53H, Sodium Level 135L, Potassium Level 4.3, Chloride Level 104, Carbon Dioxide Level 21, Calcium Level 8.7, Neutrophils 75, Band Neutrophils 1, Lymphocytes (Manual) 9L, Monocytes (Manual) 12H, Eosinophils (Manual) 1, Atypical Lymphocytes 2, Platelet Estimate NORMAL, Red Blood Cell Morphology NORMAL, Aspartate Amino Transf (AST/SGOT) 18, Alanine Aminotransferase (ALT/SGPT) 15, Alkaline Phosphatase 95, Total Bilirubin 0.4, Total Protein 7.6, Albumin 3.2, Albumin/Globulin Ratio 0.73L 11/30/16 05:54: Blood Gas Bicarbonate Standard 22.9, Arterial Blood pH 7.426, Arterial Blood Partial Pressure CO2 34.3L, Arterial Blood Partial Pressure O2 52.1L, Arterial Blood Total CO2 23.1, Arterial Blood HCO3 22.1, Arterial Blood Base Excess -1.6 , Arterial Blood Oxygen Saturation 88.2L 11/30/16 13:00: Gentamicin Level Trough 1.9 11/30/16 15:06: CBC/BMP Laboratory Tests 11/29/16 16:03 Red Blood Count 4.90, Mean Corpuscular Volume 86.7, Mean Corpuscular Hemoglobin 30.1, Mean Corpuscular Hemoglobin Concent 34.7, Red Cell Distribution Width 13.2 , Neutrophils (%) (Auto) 77.8 H, Lymphocytes (%) (Auto) 11.3 L, Monocytes (%) ( Auto) 6.9 H, Eosinophils (%) (Auto) 2.1, Basophils (%) (Auto) 1.2 H, Neutrophils # (Auto) 13.4 H, Lymphocytes # (Auto) 2.1, Monocytes # (Auto) 1.2 H , Eosinophils # (Auto) 0.4, Basophils # (Auto) 0.2, Calcium Level 9.2 11/30/16 05:03 Red Blood Count 4.83, Mean Corpuscular Volume 88.3, Mean Corpuscular Hemoglobin 29.8, Mean Corpuscular Hemoglobin Concent 33.8, Red Cell Distribution Width 13.4 , Calcium Level 8.7, Aspartate Amino Transf (AST/SGOT) 18, Alanine Aminotransferase (ALT/SGPT) 15, Alkaline Phosphatase 95, Total Bilirubin 0.4, Total Protein 7.6, Albumin 3.2 Microbiology Microbiology 11/30/16 Blood Culture, Received Pending 11/29/16 Blood Culture, Received Pending 11/29/16 Blood Culture, Received Pending 11/29/16 Urine Culture - Final, Complete AKILA ALBA Nov 30, 2016 15:30
[2016-11-30] MEDS ORDERED: cefTRIAXone SOD 1 GM in D5W MINI-BAG PLUS 50 ML IV SCH (16:00)
[2016-11-30] MEDS: WARFARIN SOD 7.5 MG TAB PO SCH (16:47)
[2016-11-30] MEDS: ACETAMINOPHEN 650MG ER TAB (TYLENOL ARTHRITIS) PO PRN (16:58)
[2016-11-30 18:00] VITALS: BP 121/78
[2016-11-30 22:00] VITALS: BP 104/58
[2016-12-01] MEDS: ACETAMINOPHEN 650MG ER TAB (TYLENOL ARTHRITIS) PO PRN ×2 (01:35→22:27)
[2016-12-01 06:00] VITALS: BP 121/60
--- NOTE | 2016-12-01 06:44 | IPNPDOC ---
Assessment/Plan Date Seen The patient was seen on 12/01/16. Patient Summary This is a 56 y/o F who is POD4 s/p cysto, b/l ureteroscopy w/ laser lithotripsy , and b/l ureteral stent placement, admitted w/ possible urosepsis vs pyelonephritis and pneumonia. Her urine culture has come back negative, making urosepsis or pyelonephritis less likely. Blood cultures are still pending. Labs are still pending this morning. She remained afebrile most of the day yesterday, demonstrating some improvement. Plan/VTE VTE Prophylaxis Ordered?: Yes VTE Exclusion Pharmacological: N/A:VTE Prophy Ordered Plan/Urinary Catheter Urinary Catheter: D/C Aguilar Reason for insertion/continuin: Other-document below Plan - appreciate hospitalist service care - continue antibiotics per hospitalist service - f/u blood culture results - d/c Aguilar - start oxybutynin prn bladder spasms - patient encouraged to increase ambulation - regular diet Subjective Review oF Systems Chief Complaint The patient is a 56-year-old female admitted with a reason for visit of Pyelonephritis. Events since Last Encounter No acute events o/n. Patient notes having bladder pain only. She feels a little better today compared to yesterday. No n/v. Patient notes that she has not been ambulating much. Objective Physical Examination General Exam: Alert, Cooperative ENT EXAM: Atraumatic ABDOMEN EXAM: Soft Skin Exam: Nl turgor and temperature Psych Exam: Mental status NL Vital Signs/I&O Vital Signs Date Time Temp Pulse Resp B/P (MAP) Pulse Ox O2 Delivery O2 Flow Rate FiO2 12/01/16 06:00 99.2 109 18 121/60 (80) 92 Nasal Cannula 1.0 I&O- Last 24 Hours up to 6 AM 12/01/16 06:00 Intake Total 3060 ml Output Total 2600 ml Balance 460 ml Laboratory Data Labs 24H Laboratory Tests 2 11/30/16 13:00: Gentamicin Level Trough 1.9 11/30/16 15:06: Gentamicin Level Peak 5.6 Microbiology Microbiology 11/30/16 Blood Culture - Preliminary, Resulted No growth after 24 hours . All specim... 11/29/16 Blood Culture - Preliminary, Resulted No growth after 24 hours . All specim... 11/29/16 Blood Culture - Preliminary, Resulted No growth after 24 hours . All specim... 11/29/16 Urine Culture - Final, Complete ROBIN MUNGUIA MD Dec 01, 2016 06:44
[2016-12-01] MEDS ORDERED: oxyBUTYnin 5 MG TAB PO PRN (06:45)
[2016-12-01 07:57] LABS: INR 1.66
[2016-12-01 07:58] LABS: BASO # 0.1 K/mm3 (0.0-0.2); BASO % 0.5 % (0.0-1.0); EOS # 0.1 K/mm3 (0.0-0.50); EOS % 0.5 % (0.0-3.0); LARGE UNSTAINED CELL # 0.3 K/mm3 (0.0-0.4); LARGE UNSTAINED CELL % 2.6 % (0.0-4.0); LYMPH # 1.4 K/mm3 (1.5-4.5); LYMPH % 13.2 % (24.0-44.0); MEAN CORPUSCULAR HGB CONC 33.8 g/dl (32.0-36.5); MONO # 0.6 K/mm3 (0.0-0.8); NEUTROPHILS # 8.2 K/mm3 (1.8-7.7); NEUTROPHILS % 77.1 % (36.0-66.0); PLATELET COUNT, AUTOMATED 112 k/mm3 (150-450); RED CELL DISTRIBUTION WIDTH 13.2 % (11.5-14.5); WHITE BLOOD COUNT 10.6 K/mm3 (4.0-10.0)
[2016-12-01 08:05] LABS: CALCIUM LEVEL 8.2 MG/DL (8.5-10.1); CREATININE FOR GFR 1.1 MG/DL (0.55-1.02); GLOMERULAR FILTRATION RATE 55.1 (>51); MAGNESIUM LEVEL 1.8 MG/DL (1.8-2.4); POTASSIUM SERUM 4.1 MEQ/L (3.5-5.1)
[2016-12-01] MEDS: NS 1,000 ML IV SCH (08:54)
[2016-12-01] MEDS: FAMOTIDINE 20 MG TAB PO SCH (09:00)
[2016-12-01] MEDS: LACTOBACILLUS ACIDOPHILUS CAP (BACID) PO SCH (09:00)
[2016-12-01] MEDS ORDERED: ENOXAPARIN 40 MG/0.4 ML SYRINGE (J1650) SC SCH (09:00)
[2016-12-01] MEDS: GABAPENTIN 400 MG CAP PO SCH ×2 (09:00→20:55)
[2016-12-01 10:00] VITALS: BP 127/75
[2016-12-01] MEDS ORDERED: ACETAMINOPHEN TAB 650MG DOSE (2X325MG) As Ordered ONE (10:30)
[2016-12-01] MEDS ORDERED: ISOVUE-370 76% 100ML VIAL (Q9967) As Ordered ONE (11:04)
[2016-12-01 12:45] VITALS: BP 102/58
--- NOTE | 2016-12-01 12:53 | REP ---
CT ANGIOGRAM CHEST: 12/01/2016 COMPARISON: x-ray 11/30/2016, CT chest 10/23/2016. TECHNIQUE: The patient received a bolus of 75 mL Isovue [address] angiogram techniques and both coronal and sagittal thick slab MIP reformats provided. FINDINGS: There are small bilateral effusions now present. There is bibasilar subsegmental atelectatic change. In the inferior lingular segment, there is patchy infiltrate/atelectasis in the anterior left base. This corresponds to the radiographic finding on chest x-ray yesterday. This area was clear on the CT chest 10/23/2016. Left ventricle appears mildly prominent. There is no pericardial thickening or effusion. There is apical pleuroparenchymal lesion or fibrosis on the left, unchanged. Diffuse interstitial changes and scattered ground-glass opacities are noted and lungs hypoinflated compared to the previous study. This may reflect some atelectatic change. The thoracic aorta is without aneurysm or dissection. The main right and left pulmonary arteries in the mediastinum are without filling defects. There is contrast in descending right pulmonary artery and within peripheral thrombus contrast into the medial and posterior basal segments. Lateral basal segment artery is not seen. Previous study was not a CT angiogram but this finding is probably not acute. The right middle and upper lobe lobar arteries and segmental arteries are intact. The left lung lobar and segmental arteries are also grossly intact. There is a 11 mm subcarinal node, 10 mm right paratracheal node and 9 mm right hilar node evident. Subcentimeter prevascular nodes and right paratracheal nodes are seen. No axillary or supraclavicular masses. Degenerative changes are in the spine. The sternum, manubrium, medial clavicles are all intact. Humeral heads and scapula as well as ribs without fracture, destructive lesion. In the upper abdomen that portion of liver and spleen included are without visible mass. There is no biliary dilatation. I see no ascites. That portion of gallbladder visible showed no stone. Much of the pancreas is seen and unremarkable. Adrenal glands without nodular mass. Haziness peripherally in the upper pole right kidney suggests some pyelonephritis may be present air. There is also a cyst in the upper pole of that right kidney. IMPRESSION: 1. Patchy new infiltrate, atelectasis in the inferior lingular segment at the left lung base corresponding to the radiographic finding. 2. There are new bilateral small effusions and atelectatic changes posteriorly in deep sulci lower lung zones since the previous CT. 3. There is a low level of inflation but also hazy ground-glass and patchy opacities that suggest some atelectasis or edema. Heart with left ventricular enlargement but no pericardial thickening or effusion. 4. Mediastinal nodes up to 11 mm. These larger nodes are new compared to the previous study. There is also an apical pleuroparenchymal lesion 16 mm and unchanged from the previous study. 5. There appear to be chronic changes in the right lower lobe pulmonary artery with thrombus proximal portion of that vessel and flow into the medial and posterior basal segments but not the lateral basal segment. Although the last study was not a CT angiogram, this is a similar appearance in that no lateral basal segment flow evident on that study. I do not see definite thrombus in other vessels. Signed by Miki Ellis MD 12/01/2016 10:17 P
[2016-12-01 14:00] VITALS: BP 144/71
[2016-12-01] MEDS: WARFARIN SOD 7.5 MG TAB PO SCH (17:35)
[2016-12-01 18:18] LABS: ABG BASE EXCESS -0.4 (-2.0-2.0); ABG HCO3 22.7 MEQ/L (22.0-26.0); ABG PARTIAL PRESSURE CO2 32.6 mmHg (35.0-45.0); ABG PARTIAL PRESSURE O2 82.4 mmHg (75.0-100.0); ABG STANDARD HCO3 24.1 MEQ/L (22.0-26.0); ABG TOTAL CO2 23.7 MEQ/L (22.0-29.0)
--- NOTE | 2016-12-01 18:31 | IPNPDOC ---
Date Seen The patient was seen on 12/01/16. Progress Note Hospitalist Progress Note Subjective: Patient states that she is feeling and breathing a little better than yesterday but still SOB and has some chest pain that she states feels like her prior PEs Objective: Physical Exam: Vitals: Vital Sign - Last 24 Hours 11/30/16 11/30/16 11/30/16 11/30/16 22:00 22:15 22:41 22:51 Temp 98.4 Pulse 95 Resp 14 16 16 B/P (MAP) 104/58 (73) Pulse Ox 94 O2 Delivery Room Air Nasal Cannula Nasal Cannula Nasal Cannula O2 Flow Rate 1.0 1.0 1.0 12/01/16 12/01/16 12/01/16 12/01/16 01:15 03:05 06:00 09:00 Temp 101.4 99.0 99.2 Pulse 109 Resp 18 B/P (MAP) 121/60 (80) Pulse Ox 92 O2 Delivery Nasal Cannula Nasal Cannula O2 Flow Rate 1.0 2.0 12/01/16 12/01/16 12/01/16 12/01/16 10:00 12:45 14:00 14:00 Temp 102.4 98.8 100.5 Pulse 126 101 106 Resp 20 18 72 32 B/P (MAP) 127/75 (92) 102/58 (73) 144/71 (95) Pulse Ox 95 O2 Delivery Nasal Cannula Nasal Cannula O2 Flow Rate 1.0 2.0 General: awake, alert, no acute distress HEENT: Normal cephalic, atraumatic, extraocular movements intact CV: Regular rate and rhythm Lungs: Clear to auscultation bilaterally Abd: Soft, decreased BS, mild suprapubic TTP Extremities: No edema Neuro: Alert and oriented 3, normal speech Psych: Normal mood and affect Labs and Imaging: Laboratory Tests 12/01/16 07:26 Red Blood Count 4.17, Mean Corpuscular Volume 89.0, Mean Corpuscular Hemoglobin 30.0, Mean Corpuscular Hemoglobin Concent 33.8, Red Cell Distribution Width 13.2 , Neutrophils (%) (Auto) 77.1 H, Lymphocytes (%) (Auto) 13.2 L, Monocytes (%) ( Auto) 6.0 H, Eosinophils (%) (Auto) 0.5, Basophils (%) (Auto) 0.5, Neutrophils # (Auto) 8.2 H, Lymphocytes # (Auto) 1.4 L, Monocytes # (Auto) 0.6, Eosinophils # (Auto) 0.1, Basophils # (Auto) 0.1, Calcium Level 8.2 L Assessment and Plan: 56-year-old female with history of nephrolithiasis, 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 Bowie the day prior to presentation. She presented to the ER with fevers and pubic pain and is admitted with pyelonephritis and acute kidney injury. She has also been found to have a likely pneumonia. We were initially consulted by urology for help in managing these postoperative medical complications and they have now requested that she be transferred to our service. 1. Pyelonephritis: The patient continues to be febrile, although there has been improvement in her white count from 17.2-10.6. Imaging does not show any evidence of hydronephrosis. Blood cultures are pending, and a urine culture actually shows no growth. However, the patient received both dexamethasone and cefazolin on the day of her procedure, which could alter both her WBC and Ucx results. UA pretty strongly suggested infection. Continue Levaquin. Management of nephrostomies as per the urology team. I suspect that her continued fevers may be secondary to potential new PE. 2. Acute kidney injury: The patient's creatinine upon admission was 1.38, and then jumped to 1.53. Today it is much improved after IVF, which we will stop. Continue to monitor. 3. Pneumonia: The patient has been complaining of a cough and sputum production , chest x-ray does show concern for an infiltrate in both the lingula and the right base. It is unclear if this is a poorly timed community-acquired pneumonia , or if potentially, she aspirated when she received general anesthesia for her recent procedure. At this time, we will continue Levaquin, which should cover both possibilities, as well as likely cover her pyelonephritis. 4. History of remote pulmonary embolism x6, concern for new acute PE: The patient has been on Coumadin for the last 10-12 years, but this was stopped preoperatively in anticipation of her surgery. She has been SOB with tachycardia , and now today chest pain. CTA is unclear about whether or not she has a new PE, and even after discussion with the reading radiologist, he states that it is near impossible to rule out a new acute PE. Given her symptoms, I am assuming a new PE and will change her to tx dose lovenox until her INR is therapeutic; continue coumadin. 5. Fibromyalgia: Continue home medications 6. Mediastinal nodes noted on CTA chest: need outpatient follow up with pulmonology DVT prophylaxis: tx dose lovenox until INR is therapeutic; suspect that continued fevers are due to PE as infectious markers (WBC) are improving VS, I&O, 24H, Fishbone Vital Signs/I&O Vital Signs Date Time Temp Pulse Resp B/P (MAP) Pulse Ox O2 Delivery O2 Flow Rate FiO2 12/01/16 14:00 32 12/01/16 14:00 100.5 106 144/71 (95) 95 Nasal Cannula 2.0 I&O- Last 24 Hours up to 6 AM 12/01/16 06:00 Intake Total 3810 ml Output Total 2600 ml Balance 1210 ml Laboratory Data 24H LABS Laboratory Tests 2 12/01/16 07:26: White Blood Count 10.6H, Red Blood Count 4.17, Hemoglobin 12.5, Hematocrit 37.1 , Mean Corpuscular Volume 89.0, Mean Corpuscular Hemoglobin 30.0, Mean Corpuscular Hemoglobin Concent 33.8, Red Cell Distribution Width 13.2, Platelet Count 112L, Neutrophils (%) (Auto) 77.1H, Lymphocytes (%) (Auto) 13.2L, Monocytes (%) (Auto) 6.0H, Eosinophils (%) (Auto) 0.5, Basophils (%) (Auto) 0.5 , Neutrophils # (Auto) 8.2H, Lymphocytes # (Auto) 1.4L, Monocytes # (Auto) 0.6, Eosinophils # (Auto) 0.1, Basophils # (Auto) 0.1, Large Unclassified Cells % 2.6 , Large Unclassified Cells # 0.3, Prothrombin Time 20.1H, Prothromb Time International Ratio 1.66, Anion Gap 10, Glomerular Filtration Rate 55.1, Blood Urea Nitrogen 13, Creatinine 1.10H, Sodium Level 139, Potassium Level 4.1, Chloride Level 107, Carbon Dioxide Level 22, Calcium Level 8.2L, Magnesium Level 1.8 12/01/16 17:21: Bedside Glucose (Misc Panel) 163H 12/01/16 18:13: Blood Gas Bicarbonate Standard 24.1, Arterial Blood pH 7.460H, Arterial Blood Partial Pressure CO2 32.6L, Arterial Blood Partial Pressure O2 82.4, Arterial Blood Total CO2 23.7, Arterial Blood HCO3 22.7, Arterial Blood Base Excess -0.4 , Arterial Blood Oxygen Saturation 96.8 CBC/BMP Laboratory Tests 12/01/16 07:26 Red Blood Count 4.17, Mean Corpuscular Volume 89.0, Mean Corpuscular Hemoglobin 30.0, Mean Corpuscular Hemoglobin Concent 33.8, Red Cell Distribution Width 13.2 , Neutrophils (%) (Auto) 77.1 H, Lymphocytes (%) (Auto) 13.2 L, Monocytes (%) ( Auto) 6.0 H, Eosinophils (%) (Auto) 0.5, Basophils (%) (Auto) 0.5, Neutrophils # (Auto) 8.2 H, Lymphocytes # (Auto) 1.4 L, Monocytes # (Auto) 0.6, Eosinophils # (Auto) 0.1, Basophils # (Auto) 0.1, Calcium Level 8.2 L Microbiology Microbiology 11/30/16 Blood Culture - Preliminary, Resulted No growth after 24 hours . All specim... 11/29/16 Blood Culture - Preliminary, Resulted No Growth after 48 hours. All Specime... 11/29/16 Blood Culture - Preliminary, Resulted No Growth after 48 hours. All Specime... 11/29/16 Urine Culture - Final, Complete KAILA ALBA Dec 01, 2016 18:31
[2016-12-01] MEDS: ENOXAPARIN 80 MG/0.8 ML SYRINGE (J1650) SC SCH (20:55)
[2016-12-01 22:00] VITALS: BP 124/74
[2016-12-01] MEDS ORDERED: IBUPROFEN 800 MG TAB PO ONE (22:45)
[2016-12-01] MEDS ORDERED: NS 500 ML IV ONE (22:45)
[2016-12-01] MEDS ORDERED: IPRATROPIUM 0.5MG/ALBUTEROL 2.5MG INH SOL UD 3ML (DUONEB)(J7620) NEB PRN (22:45)
[2016-12-01 22:53] LABS: ABG BASE EXCESS -0.1 (-2.0-2.0); ABG HCO3 22.9 MEQ/L (22.0-26.0); ABG PARTIAL PRESSURE CO2 31.9 mmHg (35.0-45.0); ABG PARTIAL PRESSURE O2 89.4 mmHg (75.0-100.0); ABG STANDARD HCO3 24.4 MEQ/L (22.0-26.0); ABG TOTAL CO2 23.8 MEQ/L (22.0-29.0); ABG pH (ARTERIAL) 7.473 UNITS (7.350-7.450)
[2016-12-01 23:22] LABS: MEAN CORPUSCULAR HEMOGLOBIN 29.6 pg (27.0-33.0); MEAN CORPUSCULAR HGB CONC 34.2 g/dl (32.0-36.5); MEAN CORPUSCULAR VOLUME 86.6 fl (80.0-96.0); RED CELL DISTRIBUTION WIDTH 13.4 % (11.5-14.5); WHITE BLOOD COUNT 12.4 K/mm3 (4.0-10.0)
[2016-12-01 23:41] LABS: CALCIUM LEVEL 8.6 MG/DL (8.5-10.1); CREATININE FOR GFR 1.14 MG/DL (0.55-1.02); GLOMERULAR FILTRATION RATE 52.9 (>51); POTASSIUM SERUM 3.4 MEQ/L (3.5-5.1)
[2016-12-02] VITALS (7 sets, daily range): BP systolic 100–120; BP diastolic 51–67; O2SAT 96–98
[2016-12-02] MEDS ORDERED: POTASSIUM CHLORIDE 10 MEQ SR TABLET PO ONE ×2 (00:15→06:45)
[2016-12-02] MEDS: PIPERACILLIN/TAZOBACTAM SOD 3.375 GM in D5W MINI-BAG PLUS 50 ML IV SCH ×3 (01:12→18:20)
[2016-12-02] MEDS: IPRATROPIUM 0.5MG/ALBUTEROL 2.5MG INH SOL UD 3ML (DUONEB)(J7620) NEB SCH ×4 (01:15→19:26)
[2016-12-02] MEDS: ACETAMINOPHEN TAB 650MG DOSE (2X325MG) PO PRN ×2 (01:35→14:41)
--- NOTE | 2016-12-02 02:30 | REPUSA ---
CLINICAL HISTORY: SOB COMMENTS: There are airspace infiltrates in the RLL and lingula. The cardiac silhouette is enlarged. The mediastinum and pulmonary vessels appear normal. Aorta is tor tuous. Degenerative changes are noted in the thoracic spine. IMPRESSION: Airspace infiltrates in the lingula. Airspace infiltrates in the right lung base. No significant brooke ge in comparison with 11/30/16 study. Thank you for your kind referral of this patient.
[2016-12-02 06:54] LABS: BASO # 0.1 K/mm3 (0.0-0.2); BASO % 0.5 % (0.0-1.0); EOS # 0.1 K/mm3 (0.0-0.50); EOS % 1.1 % (0.0-3.0); LARGE UNSTAINED CELL # 0.4 K/mm3 (0.0-0.4); LARGE UNSTAINED CELL % 3.5 % (0.0-4.0); LYMPH # 2.2 K/mm3 (1.5-4.5); LYMPH % 20.3 % (24.0-44.0); MEAN CORPUSCULAR HGB CONC 34.1 g/dl (32.0-36.5); MEAN CORPUSCULAR VOLUME 87.9 fl (80.0-96.0); MONO # 0.8 K/mm3 (0.0-0.8); MONO % 7.1 % (0.0-5.0); NEUTROPHILS # 7.1 K/mm3 (1.8-7.7); NEUTROPHILS % 67.4 % (36.0-66.0); PLATELET COUNT, AUTOMATED 120 k/mm3 (150-450); RED CELL DISTRIBUTION WIDTH 13.3 % (11.5-14.5); WHITE BLOOD COUNT 10.6 K/mm3 (4.0-10.0)
[2016-12-02 06:58] LABS: INR 2.55
[2016-12-02 07:14] LABS: CALCIUM LEVEL 8.8 MG/DL (8.5-10.1); CREATININE FOR GFR 1.47 MG/DL (0.55-1.02); GLOMERULAR FILTRATION RATE 39.4 (>51); MAGNESIUM LEVEL 2.1 MG/DL (1.8-2.4); POTASSIUM SERUM 3.8 MEQ/L (3.5-5.1)
[2016-12-02] MEDS: NS 1,000 ML IV SCH ×2 (08:15→18:19)
[2016-12-02] MEDS ORDERED: VANCOMYCIN HCL 1,000 MG, VIAL MATE ADAPTER 1 EACH in D5W 250 ML IV SCH (09:00)
[2016-12-02] MEDS ORDERED: VANCOMYCIN HCL 500 MG in D5W MINI-BAG PLUS 100 ML IV ONE (10:00)
[2016-12-02] MEDS: ENOXAPARIN 80 MG/0.8 ML SYRINGE (J1650) SC SCH ×2 (10:14→19:57)
[2016-12-02] MEDS: FAMOTIDINE 20 MG TAB PO SCH (10:15)
[2016-12-02] MEDS: GABAPENTIN 400 MG CAP PO SCH ×2 (10:15→19:56)
[2016-12-02] MEDS: PANTOPRAZOLE 40MG TAB (PROTONIX) PO SCH (10:15)
[2016-12-02] MEDS: LACTOBACILLUS ACIDOPHILUS CAP (BACID) PO SCH (10:15)
[2016-12-02] MEDS: LevoFLOXacin IV 750 MG in APPROPRIATE DILUENT 1 EA IV SCH (10:16)
[2016-12-02] MEDS: VANCOMYCIN HCL 1,000 MG, VIAL MATE ADAPTER 1 EACH in D5W 250 ML IV SCH ×2 (11:00→23:58)
--- NOTE | 2016-12-02 14:07 | IPNPDOC ---
Date Seen The patient was seen on 12/02/16. Progress Note Hospitalist Progress Note Subjective: Patient states that she is feeling and breathing a little better than yesterday; chest pain from yesterday has resolved Objective: Physical Exam: Vitals: Vital Sign - Last 24 Hours 12/01/16 12/01/16 12/01/16 12/01/16 14:00 14:00 20:40 22:00 Temp 100.5 105.2 Pulse 106 120 Resp 72 32 18 B/P (MAP) 144/71 (95) 124/74 (91) Pulse Ox 95 96 O2 Delivery Nasal Cannula Nasal Cannula Nasal Cannula O2 Flow Rate 2.0 2.0 2.0 12/02/16 12/02/16 12/02/16 12/02/16 00:20 01:10 02:20 06:00 Temp 101.2 98.5 96.0 Pulse 61 Resp 20 B/P (MAP) 105/51 (69) Pulse Ox 96 97 O2 Delivery Nasal Cannula Nasal Cannula O2 Flow Rate 2.0 2.0 12/02/16 10:00 Temp 98.0 Pulse 69 Resp 20 B/P (MAP) 101/67 (78) Pulse Ox 99 O2 Delivery Nasal Cannula O2 Flow Rate 2.0 General: awake, alert, no acute distress HEENT: Normal cephalic, atraumatic, extraocular movements intact CV: Regular rate and rhythm Lungs: Clear to auscultation bilaterally Abd: Soft, decreased BS, mild suprapubic TTP Extremities: No edema Neuro: Alert and oriented 3, normal speech Psych: Normal mood and affect Labs and Imaging: Laboratory Tests 12/01/16 23:04 Red Blood Count 4.07, Mean Corpuscular Volume 86.6, Mean Corpuscular Hemoglobin 29.6, Mean Corpuscular Hemoglobin Concent 34.2, Red Cell Distribution Width 13.4 , Calcium Level 8.6 12/02/16 06:36 Red Blood Count 4.10, Mean Corpuscular Volume 87.9, Mean Corpuscular Hemoglobin 30.0, Mean Corpuscular Hemoglobin Concent 34.1, Red Cell Distribution Width 13.3 , Calcium Level 8.8, Neutrophils (%) (Auto) 67.4 H, Lymphocytes (%) (Auto) 20.3 L, Monocytes (%) (Auto) 7.1 H, Eosinophils (%) (Auto) 1.1, Basophils (%) (Auto) 0.5, Neutrophils # (Auto) 7.1, Lymphocytes # (Auto) 2.2, Monocytes # (Auto) 0.8 , Eosinophils # (Auto) 0.1, Basophils # (Auto) 0.1 Assessment and Plan: 56-year-old female with history of nephrolithiasis, 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 Bowie the day prior to presentation. She presented to the ER with fevers and pubic pain and is admitted with pyelonephritis and acute kidney injury. She has also been found to have a likely pneumonia. We were initially consulted by urology for help in managing these postoperative medical complications and they have now requested that she be transferred to our service. 1. Pyelonephritis, bacteremia: The patient continues to be febrile, although there has been improvement in her white count from 17.2-10.6. Imaging does not show any evidence of hydronephrosis. Initial Blood cultures are negative, and a urine culture actually shows no growth. However, the patient received both dexamethasone and cefazolin on the day of her procedure, which could alter both her WBC and Ucx results. UA pretty strongly suggested infection. Continue Levaquin. Management of nephrostomies as per the urology team. Repeat blood culture is growing GPCs, but unfortunately only 1 set of blood culture was collected at that time, so it is difficult to tell if this is an contaminant. Start vanc and collect a another set of blood cultures x2. Will also get repeat Ucx. She has continued to be febrile, and last night zosyn was added, which I agree with. 2. Acute kidney injury: The patient's creatinine upon admission was 1.38, and then jumped to 1.53 but improved with IVF. After IVF were stopped, the Cr went back up. We will restart IVF. Continue to monitor. 3. Pneumonia: The patient has been complaining of a cough and sputum production , chest x-ray does show concern for an infiltrate in both the lingula and the right base. It is unclear if this is a poorly timed community-acquired pneumonia , or if potentially, she aspirated when she received general anesthesia for her recent procedure. Given the timing, it is most likely that she aspirated. At this time, we will continue Levaquin and zosyn, which should cover both possibilities, as well as likely cover her pyelonephritis. 4. History of remote pulmonary embolism x6, concern for new acute PE: The patient has been on Coumadin for the last 10-12 years, but this was stopped preoperatively in anticipation of her surgery. She has been SOB with tachycardia , and yesterday chest pain that she described as being like her former PEs. CTA is unclear about whether or not she has a new PE, and even after discussion with the reading radiologist, he states that it is near impossible to rule out a new acute PE. Given her symptoms, I am assuming a new PE. Coumadin has been resumed and INR is now therapeutic, but given the likelihood of acute PE and hx of multiple VTE, will continue with 5 days of tx dose lovenox as well, as long as patient does not experience any bleeding. 5. Fibromyalgia: Continue home medications 6. Mediastinal nodes noted on CTA chest: need outpatient follow up with pulmonology DVT prophylaxis: tx dose lovenox VS, I&O, 24H, Fishbone Vital Signs/I&O Vital Signs Date Time Temp Pulse Resp B/P (MAP) Pulse Ox O2 Delivery O2 Flow Rate FiO2 12/02/16 10:00 98.0 69 20 101/67 (78) 99 Nasal Cannula 2.0 I&O- Last 24 Hours up to 6 AM 12/02/16 06:00 Intake Total 1760 ml Output Total 950 ml Balance 810 ml Laboratory Data 24H LABS Laboratory Tests 2 12/01/16 17:21: Bedside Glucose (Misc Panel) 163H 12/01/16 18:13: Blood Gas Bicarbonate Standard 24.1, Arterial Blood pH 7.460H, Arterial Blood Partial Pressure CO2 32.6L, Arterial Blood Partial Pressure O2 82.4, Arterial Blood Total CO2 23.7, Arterial Blood HCO3 22.7, Arterial Blood Base Excess -0.4 , Arterial Blood Oxygen Saturation 96.8 12/01/16 22:49: Blood Gas Bicarbonate Standard 24.4, Arterial Blood pH 7.473H, Arterial Blood Partial Pressure CO2 31.9L, Arterial Blood Partial Pressure O2 89.4, Arterial Blood Total CO2 23.8, Arterial Blood HCO3 22.9, Arterial Blood Base Excess -0.1 , Arterial Blood Oxygen Saturation 97.4 12/01/16 23:04: Anion Gap 9, Glomerular Filtration Rate 52.9, Blood Urea Nitrogen 12, Creatinine 1.14H, Sodium Level 137, Potassium Level 3.4L, Chloride Level 104, Carbon Dioxide Level 24, Calcium Level 8.6 12/02/16 06:35: Prothrombin Time 28.5H, Prothromb Time International Ratio 2.55 12/02/16 06:36: White Blood Count 10.6H, Red Blood Count 4.10, Hemoglobin 12.3, Hematocrit 36.1 , Mean Corpuscular Volume 87.9, Mean Corpuscular Hemoglobin 30.0, Mean Corpuscular Hemoglobin Concent 34.1, Red Cell Distribution Width 13.3, Platelet Count 120L, Neutrophils (%) (Auto) 67.4H, Lymphocytes (%) (Auto) 20.3L, Monocytes (%) (Auto) 7.1H, Eosinophils (%) (Auto) 1.1, Basophils (%) (Auto) 0.5 , Neutrophils # (Auto) 7.1, Lymphocytes # (Auto) 2.2, Monocytes # (Auto) 0.8, Eosinophils # (Auto) 0.1, Basophils # (Auto) 0.1, Large Unclassified Cells % 3.5 , Large Unclassified Cells # 0.4, Anion Gap 7L, Glomerular Filtration Rate 39.4L , Blood Urea Nitrogen 18, Creatinine 1.47H, Sodium Level 139, Potassium Level 3.8, Chloride Level 108H, Carbon Dioxide Level 24, Calcium Level 8.8, Magnesium Level 2.1 CBC/BMP Laboratory Tests 12/01/16 23:04 Red Blood Count 4.07, Mean Corpuscular Volume 86.6, Mean Corpuscular Hemoglobin 29.6, Mean Corpuscular Hemoglobin Concent 34.2, Red Cell Distribution Width 13.4 , Calcium Level 8.6 12/02/16 06:36 Red Blood Count 4.10, Mean Corpuscular Volume 87.9, Mean Corpuscular Hemoglobin 30.0, Mean Corpuscular Hemoglobin Concent 34.1, Red Cell Distribution Width 13.3 , Calcium Level 8.8, Neutrophils (%) (Auto) 67.4 H, Lymphocytes (%) (Auto) 20.3 L, Monocytes (%) (Auto) 7.1 H, Eosinophils (%) (Auto) 1.1, Basophils (%) (Auto) 0.5, Neutrophils # (Auto) 7.1, Lymphocytes # (Auto) 2.2, Monocytes # (Auto) 0.8 , Eosinophils # (Auto) 0.1, Basophils # (Auto) 0.1 Microbiology Microbiology 12/02/16 Blood Culture, Received Pending 12/02/16 Blood Culture, Received Pending 12/01/16 Blood Culture, Received Pending 11/30/16 Blood Culture - Preliminary, Resulted 11/29/16 Blood Culture - Preliminary, Resulted No Growth after 48 hours. All Specime... 11/29/16 Blood Culture - Preliminary, Resulted No Growth after 48 hours. All Specime... 12/02/16 Urine Culture, Received Pending 11/29/16 Urine Culture - Final, Complete KAILA ALBA Dec 02, 2016 14:07
--- NOTE | 2016-12-02 14:55 | PHACANCOPD ---
PHARMACY VANCOMYCIN DOSING Pt Demographics Demographics Patient Age:56 , Weight:81.800 , Gender: female Adjusted Body Weight Date: 12/02/16, Adjusted Body Weight: Kg Events Past 24 Hours Events Past 24 Hours: NO: Dialysis, Diuretic Therapy, Change in CrCl, Fever, Elevation in WBC, Pending Diagnostics, Pending Procedures, Other Vancomycin Vancomycin indication: Bacteremia Vancomycin Target Ranges: 15-20 mcg/ml Vancomycin Load Y/N: Yes Load Dose Date Time Vancomycin Load Dose: 1500mg Date: 12/02/16 Time: 1000 Vancomycin Dose Date: 12/02/16. Current Vancomycin Dose: [1gm IV q12h@11] Intermittent Dosing?: No Labs Labs Vital Signs Label Value Date Time Patient Temperature 105.2 degrees F 12/01/16 2200 Temperature Source Rectal 12/01/16 2200 Patient Temperature 101.2 degrees F 12/02/16 0020 Temperature Source Rectal 12/02/16 0020 Patient Temperature 98.0 degrees F 12/02/16 1000 Temperature Source Core 12/02/16 1000 Item Value Date Time White Blood Count 17.2 K/mm3 H 11/29/16 1603 White Blood Count 16.5 K/mm3 H 11/30/16 0503 White Blood Count 10.6 K/mm3 H 12/01/16 0726 White Blood Count 10.6 K/mm3 H 12/02/16 0636 Creatinine 1.10 MG/DL H 12/01/16 0726 Creatinine 1.14 MG/DL H 12/01/16 2304 Creatinine 1.47 MG/DL H 12/02/16 0636 Micro Microbiology 12/02/16 Blood Culture, Received Pending 12/02/16 Blood Culture, Received Pending 12/01/16 Blood Culture, Received Pending 11/30/16 Blood Culture - Preliminary, Resulted 11/29/16 Blood Culture - Preliminary, Resulted No Growth after 48 hours. All Specime... 11/29/16 Blood Culture - Preliminary, Resulted No Growth after 48 hours. All Specime... 12/02/16 Urine Culture, Received Pending 11/29/16 Urine Culture - Final, Complete Creatinine Clearance Date:12/02/16. Creatinine Clearance: . Assessment and Plan Maintaining Current Dose?: Yes Reason for dose change: No Dose Change Pharmacist Note Pharmacist Note Date: 12/02/16. Pharmacist note: This is a patient with a history significant of kidney stones status post cystoscopy, lithotropsy, and stent placement who presented to the Emergency Department with fever, groin pain, and dysuria. Upon examination she was found to increase Scr, leukocytosis, and worsening renal function. She was originally being treated empirically for pyelonephritis , then antibiotics were tailored to treat possible underlying pneumonia. She is currently on Levaquin and Zosyn. Today Vancomycin was added for one set of gram positive cocci in clusters. Repeat cultures have been performed. All other micro is negative so far. WBC is improving, and patient has been afebrile today. Patient has no history of MRSA or Vancomycin use at our facility. She was loaded with 1500mg of Vancomycin then continued on Vancomycin 1gm IV q12h. Due to her fluctuation in kidney function we will monitor her closely and make adjustments as necessary. STEVE GRACIA PHARMACY Dec 02, 2016 14:55
[2016-12-02] MEDS: WARFARIN SOD 7.5 MG TAB PO SCH (18:19)
[2016-12-02] MEDS: PERCOCET 5MG/325MG TAB PO PRN (18:29)
[2016-12-02] MEDS ORDERED: NS 500 ML IV ONE (19:00)
--- NOTE | 2016-12-02 20:41 | IPNPDOC ---
Assessment/Plan Date Seen The patient was seen on 12/02/16. Plan/VTE VTE Prophylaxis Ordered?: Yes VTE Exclusion Pharmacological: N/A:VTE Prophy Ordered Plan/Urinary Catheter Urinary Catheter: D/C Aguilar Reason for insertion/continuin: Other-document below Subjective Review oF Systems Chief Complaint 56 year old woman who is s/p bilateral ureteroscopy, laser lithotripsy and bilateral stent placement, who presented with fever. Febrile to 105 last night. Now downtrending to 100.0. Blood culture grew gram positive cocci in clusters. Vancomycin and zosyn added. Diflucan added due to yeast on culture in August. Patient reports feeling better. Still on oxygen and still slightly short of breath. She reports that her suprapubic pain is improving. No nausea. Hematuria started after anticoagulation started for her PE. Febrile to 100 Vitals stable On 2 liters nasal cannula No acute distress currently A+Ox3 Abdomen soft, mild ttp in suprapubic area, not distended Ext wwp Laboratory Tests 12/01/16 23:04 12/02/16 06:36 ASSESSMENT/PLAN 56 year old woman who is s/p bilateral ureteroscopy, laser lithotripsy and bilateral stent placement, who presented with fever. - continue vancomycin, zosyn, diflucan. Not sure if levofloxacin is still necessary - recommend KUB and renal ultrasound to look at stent position, given continued fevers - conservative management for hematuria (likely due to stent friction on bladder in setting of anticoagulation) - recommend bladder scan to ensure patient is emptying her bladder - will continue to follow closely Objective Physical Examination General Exam: Alert, Cooperative ENT EXAM: Atraumatic ABDOMEN EXAM: Soft Skin Exam: Nl turgor and temperature Psych Exam: Mental status NL Vital Signs/I&O Vital Signs Date Time Temp Pulse Resp B/P (MAP) Pulse Ox O2 Delivery O2 Flow Rate FiO2 12/02/16 19:50 18 97 12/02/16 19:20 Nasal Cannula 2.0 12/02/16 19:00 101.0 12/02/16 18:00 97 117/56 (76) I&O- Last 24 Hours up to 6 AM 12/02/16 06:00 Intake Total 1760 ml Output Total 950 ml Balance 810 ml Laboratory Data Labs 24H Laboratory Tests 2 12/01/16 22:49: Blood Gas Bicarbonate Standard 24.4, Arterial Blood pH 7.473H, Arterial Blood Partial Pressure CO2 31.9L, Arterial Blood Partial Pressure O2 89.4, Arterial Blood Total CO2 23.8, Arterial Blood HCO3 22.9, Arterial Blood Base Excess -0.1 , Arterial Blood Oxygen Saturation 97.4 12/01/16 23:04: Anion Gap 9, Glomerular Filtration Rate 52.9, Blood Urea Nitrogen 12, Creatinine 1.14H, Sodium Level 137, Potassium Level 3.4L, Chloride Level 104, Carbon Dioxide Level 24, Calcium Level 8.6 12/02/16 06:35: Prothrombin Time 28.5H, Prothromb Time International Ratio 2.55 12/02/16 06:36: Anion Gap 7L, Glomerular Filtration Rate 39.4L, Blood Urea Nitrogen 18, Creatinine 1.47H, Sodium Level 139, Potassium Level 3.8, Chloride Level 108H, Carbon Dioxide Level 24, Calcium Level 8.8, White Blood Count 10.6H, Red Blood Count 4.10, Hemoglobin 12.3, Hematocrit 36.1, Mean Corpuscular Volume 87.9, Mean Corpuscular Hemoglobin 30.0, Mean Corpuscular Hemoglobin Concent 34.1, Red Cell Distribution Width 13.3, Platelet Count 120L, Neutrophils (%) (Auto) 67.4H , Lymphocytes (%) (Auto) 20.3L, Monocytes (%) (Auto) 7.1H, Eosinophils (%) (Auto ) 1.1, Basophils (%) (Auto) 0.5, Neutrophils # (Auto) 7.1, Lymphocytes # (Auto) 2.2, Monocytes # (Auto) 0.8, Eosinophils # (Auto) 0.1, Basophils # (Auto) 0.1, Large Unclassified Cells % 3.5, Large Unclassified Cells # 0.4, Magnesium Level 2.1 CBC/BMP Laboratory Tests 12/01/16 23:04 Red Blood Count 4.07, Mean Corpuscular Volume 86.6, Mean Corpuscular Hemoglobin 29.6, Mean Corpuscular Hemoglobin Concent 34.2, Red Cell Distribution Width 13.4 , Calcium Level 8.6 12/02/16 06:36 Red Blood Count 4.10, Mean Corpuscular Volume 87.9, Mean Corpuscular Hemoglobin 30.0, Mean Corpuscular Hemoglobin Concent 34.1, Red Cell Distribution Width 13.3 , Calcium Level 8.8, Neutrophils (%) (Auto) 67.4 H, Lymphocytes (%) (Auto) 20.3 L, Monocytes (%) (Auto) 7.1 H, Eosinophils (%) (Auto) 1.1, Basophils (%) (Auto) 0.5, Neutrophils # (Auto) 7.1, Lymphocytes # (Auto) 2.2, Monocytes # (Auto) 0.8 , Eosinophils # (Auto) 0.1, Basophils # (Auto) 0.1 Microbiology Microbiology 12/02/16 Blood Culture, Received Pending 12/02/16 Blood Culture, Received Pending 12/01/16 Blood Culture, Received Pending 11/30/16 Blood Culture - Preliminary, Resulted 11/29/16 Blood Culture - Preliminary, Resulted No Growth after 72 hours. All specime... 11/29/16 Blood Culture - Preliminary, Resulted No Growth after 72 hours. All specime... 12/02/16 Urine Culture, Received Pending 11/29/16 Urine Culture - Final, Complete CARLOS ROMERO MD Dec 02, 2016 20:41
[2016-12-02] MEDS: FLUCONAZOLE 200 MG in APPROPRIATE DILUENT 1 EA IV SCH (21:10)
[2016-12-03] VITALS (7 sets, daily range): BP systolic 123–145; BP diastolic 60–83; O2SAT 97
[2016-12-03] MEDS: PIPERACILLIN/TAZOBACTAM SOD 3.375 GM in D5W MINI-BAG PLUS 50 ML IV SCH ×3 (00:02→16:00)
[2016-12-03] MEDS: PERCOCET 5MG/325MG TAB PO PRN ×2 (00:17→20:00)
[2016-12-03] MEDS: oxyCODONE 5MG TAB PO PRN (01:16)
[2016-12-03] MEDS: IPRATROPIUM 0.5MG/ALBUTEROL 2.5MG INH SOL UD 3ML (DUONEB)(J7620) NEB SCH ×4 (02:33→20:36)
[2016-12-03] MEDS: NS 1,000 ML IV SCH ×3 (05:33→20:01)
[2016-12-03 08:45] LABS: CALCIUM LEVEL 7.8 MG/DL (8.5-10.1); CREATININE FOR GFR 1.13 MG/DL (0.55-1.02); GLOMERULAR FILTRATION RATE 53.4 (>51); MAGNESIUM LEVEL 1.8 MG/DL (1.8-2.4); POTASSIUM SERUM 3.9 MEQ/L (3.5-5.1)
[2016-12-03 08:54] LABS: BASO # 0.1 K/mm3 (0.0-0.2); BASO % 0.7 % (0.0-1.0); EOS # 0.1 K/mm3 (0.0-0.50); EOS % 0.9 % (0.0-3.0); LARGE UNSTAINED CELL # 0.4 K/mm3 (0.0-0.4); LARGE UNSTAINED CELL % 5.1 % (0.0-4.0); LYMPH # 2.1 K/mm3 (1.5-4.5); MEAN CORPUSCULAR HEMOGLOBIN 29.8 pg (27.0-33.0); MEAN CORPUSCULAR HGB CONC 33.2 g/dl (32.0-36.5); MEAN CORPUSCULAR VOLUME 89.8 fl (80.0-96.0); MONO % 13.1 % (0.0-5.0); NEUTROPHILS # 4.3 K/mm3 (1.8-7.7); NEUTROPHILS % 54.1 % (36.0-66.0); PLATELET COUNT, AUTOMATED 126 k/mm3 (150-450); RED CELL DISTRIBUTION WIDTH 13.7 % (11.5-14.5); WHITE BLOOD COUNT 7.9 K/mm3 (4.0-10.0)
[2016-12-03 08:58] LABS: INR 3.99
--- NOTE | 2016-12-03 09:42 | IPNPDOC ---
Assessment/Plan Date Seen The patient was seen on 12/03/16. Plan/VTE VTE Prophylaxis Ordered?: Yes VTE Exclusion Pharmacological: N/A:VTE Prophy Ordered Plan/Urinary Catheter Urinary Catheter: D/C Aguilar Reason for insertion/continuin: Other-document below Subjective Review oF Systems Chief Complaint 56 year old woman who is s/p bilateral ureteroscopy, laser lithotripsy and bilateral stent placement, who presented with fever. Fever curve now improving since vancomycin added. Patient reports feeling better. Still on oxygen and still slightly short of breath. KUB shows bilateral stents in proper position with good curls. Tc 100.5 Tm101.9(yesterday morning) P 95-103, BP145/68, 95% on 2 liters UOP 800cc for last shift On 2 liters nasal cannula No acute distress currently A+Ox3 Abdomen soft, mild ttp in suprapubic area, not distended Ext wwp Laboratory Tests 12/03/16 07:45 ASSESSMENT/PLAN 56 year old woman who is s/p bilateral ureteroscopy, laser lithotripsy and bilateral stent placement, who presented with fever. - continue vancomycin, zosyn, diflucan until fevers subside and blood culture is finalized. Source of infection is still unclear because urine culture obtained after antibiotics were given and patient has patch infiltrate on chest x-ray. - conservative management for hematuria (likely due to stent friction on bladder in setting of anticoagulation) - ensure PVR is less than 300cc with bladder scan - will continue to follow closely Objective Physical Examination General Exam: Alert, Cooperative ENT EXAM: Atraumatic ABDOMEN EXAM: Soft Skin Exam: Nl turgor and temperature Psych Exam: Mental status NL Vital Signs/I&O Vital Signs Date Time Temp Pulse Resp B/P (MAP) Pulse Ox O2 Delivery O2 Flow Rate FiO2 12/03/16 06:00 100.5 103 20 145/68 (93) 95 Nasal Cannula 2.0 I&O- Last 24 Hours up to 6 AM 12/03/16 06:00 Intake Total 2330 ml Output Total 1300 ml Balance 1030 ml Laboratory Data Labs 24H Laboratory Tests 2 12/03/16 07:45: White Blood Count 7.9, Red Blood Count 3.63L, Hemoglobin 10.8L, Hematocrit 32.6L , Mean Corpuscular Volume 89.8, Mean Corpuscular Hemoglobin 29.8, Mean Corpuscular Hemoglobin Concent 33.2, Red Cell Distribution Width 13.7, Platelet Count 126L, Neutrophils (%) (Auto) 54.1, Lymphocytes (%) (Auto) 26.0, Monocytes (%) (Auto) 13.1H, Eosinophils (%) (Auto) 0.9, Basophils (%) (Auto) 0.7, Neutrophils # (Auto) 4.3, Lymphocytes # (Auto) 2.1, Monocytes # (Auto) 1.0H, Eosinophils # (Auto) 0.1, Basophils # (Auto) 0.1, Large Unclassified Cells % 5.1H, Large Unclassified Cells # 0.4, Prothrombin Time 41.0H, Prothromb Time International Ratio 3.99, Anion Gap 11, Glomerular Filtration Rate 53.4, Blood Urea Nitrogen 12, Creatinine 1.13H, Sodium Level 140, Potassium Level 3.9, Chloride Level 108H, Carbon Dioxide Level 21, Calcium Level 7.8L, Magnesium Level 1.8 CBC/BMP Laboratory Tests 12/03/16 07:45 Red Blood Count 3.63 L, Mean Corpuscular Volume 89.8, Mean Corpuscular Hemoglobin 29.8, Mean Corpuscular Hemoglobin Concent 33.2, Red Cell Distribution Width 13.7, Neutrophils (%) (Auto) 54.1, Lymphocytes (%) (Auto) 26.0, Monocytes (%) (Auto) 13.1 H, Eosinophils (%) (Auto) 0.9, Basophils (%) ( Auto) 0.7, Neutrophils # (Auto) 4.3, Lymphocytes # (Auto) 2.1, Monocytes # (Auto ) 1.0 H, Eosinophils # (Auto) 0.1, Basophils # (Auto) 0.1, Calcium Level 7.8 L Microbiology Microbiology 12/02/16 Blood Culture - Preliminary, Resulted No growth after 24 hours . All specim... 12/02/16 Blood Culture - Preliminary, Resulted No growth after 24 hours . All specim... 12/01/16 Blood Culture - Preliminary, Resulted No growth after 24 hours . All specim... 11/30/16 Blood Culture - Preliminary, Resulted 11/29/16 Blood Culture - Preliminary, Resulted No Growth after 72 hours. All specime... 11/29/16 Blood Culture - Preliminary, Resulted No Growth after 72 hours. All specime... 12/02/16 Urine Culture - Final, Complete 11/29/16 Urine Culture - Final, Complete CARLOS ROMERO MD Dec 03, 2016 09:42
[2016-12-03] MEDS: ENOXAPARIN 80 MG/0.8 ML SYRINGE (J1650) SC SCH (10:06)
[2016-12-03] MEDS: LACTOBACILLUS ACIDOPHILUS CAP (BACID) PO SCH (10:07)
[2016-12-03] MEDS: GABAPENTIN 400 MG CAP PO SCH ×2 (10:07→20:00)
[2016-12-03] MEDS: PANTOPRAZOLE 40MG TAB (PROTONIX) PO SCH (10:07)
[2016-12-03] MEDS: FAMOTIDINE 20 MG TAB PO SCH (10:07)
--- NOTE | 2016-12-03 10:44 | REP ---
SUPINE ABDOMEN: 12/02/2016. Clinical history: Bilateral ureteral stents with continued fevers. Comparison: CT abdomen 11/29/2016, KUB 11/29/2016. Findings: Bilateral ureteral stents with pigtails coiled proximally in the renal pelvis and distally in the bladder on each side. There are pelvic surgical clips and staple lines in the deep pelvis bilaterally. There is a stone over the lower pole of the right kidney as seen on the CT with intra renal calculus. This is unchanged. I do not see any definite stones along the course of the ureters. There are right upper quadrant clips, metallic clips in the right upper quadrant are unchanged. Gas pattern nonspecific. Bones without acute finding. Impression. 1. Bilateral ureteral stents unchanged in position and coiled proximally in the renal pelvis distally in the bladder. 2. Nephrolithiasis with oval stone in the lower pole collecting system on the right kidney unchanged. No definite stones along the course of the stents. Signed by Miki Ellis MD 12/03/2016 05:56 P
[2016-12-03] MEDS: VANCOMYCIN HCL 1,000 MG, VIAL MATE ADAPTER 1 EACH in D5W 250 ML IV SCH ×2 (11:00→22:10)
[2016-12-03] MEDS: ACETAMINOPHEN TAB 650MG DOSE (2X325MG) PO PRN ×2 (12:00→21:28)
[2016-12-03] MEDS: WARFARIN SOD 7.5 MG TAB PO SCH (15:28)
--- NOTE | 2016-12-03 16:00 | IPNPDOC ---
Date Seen The patient was seen on 12/03/16. Progress Note Hospitalist Progress Note Subjective: Patient states that she is feeling a little better but the chest pain she associates with her PEs has returned Objective: Physical Exam: Vitals: Vital Sign - Last 24 Hours 12/02/16 12/02/16 12/02/16 12/02/16 18:00 18:29 19:00 19:00 Temp 101.9 101.0 101.0 Pulse 97 Resp 22 20 B/P (MAP) 117/56 (76) Pulse Ox 97 O2 Delivery Nasal Cannula O2 Flow Rate 2.0 12/02/16 12/02/16 12/02/16 12/02/16 19:20 19:50 21:15 23:35 Temp 98.3 Pulse 86 Resp 20 B/P (MAP) 100/51 (67) Pulse Ox 98 97 O2 Delivery Nasal Cannula Nasal Cannula Nasal Cannula O2 Flow Rate 2.0 2.0 2.0 12/03/16 12/03/16 12/03/16 12/03/16 00:17 00:54 01:16 01:46 Resp 18 18 33 20 Pulse Ox 97 97 98 12/03/16 12/03/16 12/03/16 12/03/16 02:00 02:25 06:00 10:00 Temp 98.9 100.5 103.0 Pulse 95 103 104 Resp 18 20 32 B/P (MAP) 137/76 (96) 145/68 (93) 141/83 (102) Pulse Ox 97 97 95 94 O2 Delivery Nasal Cannula Nasal Cannula Nasal Cannula Nasal Cannula O2 Flow Rate 2.0 2.0 2.0 2.0 12/03/16 12/03/16 12/03/16 12:00 12:55 14:00 Temp 101.2 99.6 98.3 Pulse 103 Resp 15 B/P (MAP) 129/60 (83) Pulse Ox 95 O2 Delivery Nasal Cannula O2 Flow Rate 2.0 General: awake, alert, no acute distress HEENT: Normal cephalic, atraumatic, extraocular movements intact CV: Regular rate and rhythm Lungs: Clear to auscultation bilaterally Abd: Soft, decreased BS, mild suprapubic TTP Extremities: No edema Neuro: Alert and oriented 3, normal speech Psych: Normal mood and affect Labs and Imaging: Laboratory Tests 12/03/16 07:45 Red Blood Count 3.63 L, Mean Corpuscular Volume 89.8, Mean Corpuscular Hemoglobin 29.8, Mean Corpuscular Hemoglobin Concent 33.2, Red Cell Distribution Width 13.7, Neutrophils (%) (Auto) 54.1, Lymphocytes (%) (Auto) 26.0, Monocytes (%) (Auto) 13.1 H, Eosinophils (%) (Auto) 0.9, Basophils (%) ( Auto) 0.7, Neutrophils # (Auto) 4.3, Lymphocytes # (Auto) 2.1, Monocytes # (Auto ) 1.0 H, Eosinophils # (Auto) 0.1, Basophils # (Auto) 0.1, Calcium Level 7.8 L Assessment and Plan: 56-year-old female with history of nephrolithiasis, 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 Bowie the day prior to presentation. She presented to the ER with fevers and pubic pain and is admitted with pyelonephritis and acute kidney injury. She has also been found to have a likely pneumonia. We were initially consulted by urology for help in managing these postoperative medical complications and they have now requested that she be transferred to our service. 1. Pyelonephritis, bacteremia: The patient continues to be febrile, although there has been improvement in her white count from 17.2-7.9. Imaging does not show any evidence of hydronephrosis. Initial Blood cultures are negative, and the initial urine culture actually shows no growth. However, the patient received both dexamethasone and cefazolin on the day of her procedure, which could alter both her WBC and Ucx results. UA pretty strongly suggested infection. Management of nephrostomies as per the urology team. Repeat blood culture is growing GPCs, but unfortunately only 1 set of blood culture was collected at that time, so it is difficult to tell if this is an contaminant. Three other repeat blood cultures are all negative at 24H and a repeat Ucx is negative. Continue vanc and zoysn, as well as diflucan for culture several months ago that grew yeast. Follow up final blood culture results. 2. Acute kidney injury: The patient's creatinine upon admission was 1.38, and then jumped to 1.53 but improved with IVF. After IVF were stopped, the Cr went back up. Continue IVF at this time. Continue to monitor. 3. Pneumonia: The patient has been complaining of a cough and sputum production , chest x-ray does show concern for an infiltrate in both the lingula and the right base. It is unclear if this is a poorly timed community-acquired pneumonia , or if potentially, she aspirated when she received general anesthesia for her recent procedure. Given the timing, it is most likely that she aspirated. At this time, we will continue vanc and zosyn, which should cover both possibilities, as well as likely cover her pyelonephritis. 4. History of remote pulmonary embolism x6, concern for new acute PE: The patient has been on Coumadin for the last 10-12 years, but this was stopped preoperatively in anticipation of her surgery. She has been SOB with tachycardia , and intermittently had chest pain that she described as being like her former PEs. CTA is unclear about whether or not she has a new PE, and even after discussion with the reading radiologist, he states that it is near impossible to rule out a new acute PE. Given her symptoms, I am assuming a new PE. Coumadin has been resumed but INR is now supratherapeutic. Will stop coumadin and lovenox as INR is 3.99; patient is having hematuria; she reports to me that this actually began before her procedure, however, her Hgb dropped 1.5pts since yesterday so we will watch cautiously 5. Fibromyalgia: Continue home medications 6. Mediastinal nodes noted on CTA chest: need outpatient follow up with pulmonology DVT prophylaxis: supratherapeutic INR VS, I&O, 24H, Fishbone Vital Signs/I&O Vital Signs Date Time Temp Pulse Resp B/P (MAP) Pulse Ox O2 Delivery O2 Flow Rate FiO2 12/03/16 14:00 98.3 103 15 129/60 (83) 95 Nasal Cannula 2.0 I&O- Last 24 Hours up to 6 AM 12/03/16 06:00 Intake Total 2330 ml Output Total 1300 ml Balance 1030 ml Laboratory Data 24H LABS Laboratory Tests 2 12/03/16 07:45: White Blood Count 7.9, Red Blood Count 3.63L, Hemoglobin 10.8L, Hematocrit 32.6L , Mean Corpuscular Volume 89.8, Mean Corpuscular Hemoglobin 29.8, Mean Corpuscular Hemoglobin Concent 33.2, Red Cell Distribution Width 13.7, Platelet Count 126L, Neutrophils (%) (Auto) 54.1, Lymphocytes (%) (Auto) 26.0, Monocytes (%) (Auto) 13.1H, Eosinophils (%) (Auto) 0.9, Basophils (%) (Auto) 0.7, Neutrophils # (Auto) 4.3, Lymphocytes # (Auto) 2.1, Monocytes # (Auto) 1.0H, Eosinophils # (Auto) 0.1, Basophils # (Auto) 0.1, Large Unclassified Cells % 5.1H, Large Unclassified Cells # 0.4, Prothrombin Time 41.0H, Prothromb Time International Ratio 3.99, Anion Gap 11, Glomerular Filtration Rate 53.4, Blood Urea Nitrogen 12, Creatinine 1.13H, Sodium Level 140, Potassium Level 3.9, Chloride Level 108H, Carbon Dioxide Level 21, Calcium Level 7.8L, Magnesium Level 1.8 12/03/16 11:46: Bedside Glucose (Misc Panel) 116H CBC/BMP Laboratory Tests 12/03/16 07:45 Red Blood Count 3.63 L, Mean Corpuscular Volume 89.8, Mean Corpuscular Hemoglobin 29.8, Mean Corpuscular Hemoglobin Concent 33.2, Red Cell Distribution Width 13.7, Neutrophils (%) (Auto) 54.1, Lymphocytes (%) (Auto) 26.0, Monocytes (%) (Auto) 13.1 H, Eosinophils (%) (Auto) 0.9, Basophils (%) ( Auto) 0.7, Neutrophils # (Auto) 4.3, Lymphocytes # (Auto) 2.1, Monocytes # (Auto ) 1.0 H, Eosinophils # (Auto) 0.1, Basophils # (Auto) 0.1, Calcium Level 7.8 L Microbiology Microbiology 12/02/16 Blood Culture - Preliminary, Resulted No growth after 24 hours . All specim... 12/02/16 Blood Culture - Preliminary, Resulted No growth after 24 hours . All specim... 12/01/16 Blood Culture - Preliminary, Resulted No growth after 24 hours . All specim... 11/30/16 Blood Culture - Preliminary, Resulted 11/29/16 Blood Culture - Preliminary, Resulted No Growth after 72 hours. All specime... 11/29/16 Blood Culture - Preliminary, Resulted No Growth after 72 hours. All specime... 12/02/16 Urine Culture - Final, Complete 11/29/16 Urine Culture - Final, Complete KAILA ALBA Dec 03, 2016 16:00
[2016-12-03] MEDS: FLUCONAZOLE 200 MG in APPROPRIATE DILUENT 1 EA IV SCH (20:01)
[2016-12-04] MEDS: PIPERACILLIN/TAZOBACTAM SOD 3.375 GM in D5W MINI-BAG PLUS 50 ML IV SCH ×3 (00:15→16:32)
[2016-12-04 02:00] VITALS: BP 107/58
[2016-12-04] MEDS: IPRATROPIUM 0.5MG/ALBUTEROL 2.5MG INH SOL UD 3ML (DUONEB)(J7620) NEB SCH ×4 (02:00→20:00)
[2016-12-04] MEDS: ACETAMINOPHEN TAB 650MG DOSE (2X325MG) PO PRN ×3 (05:44→22:15)
[2016-12-04] MEDS: oxyCODONE 5MG TAB PO PRN ×3 (05:47→22:16)
[2016-12-04 06:00] VITALS: BP 160/92
[2016-12-04 06:37] LABS: BASO # 0.1 K/mm3 (0.0-0.2); BASO % 0.6 % (0.0-1.0); EOS # 0.4 K/mm3 (0.0-0.50); EOS % 3.4 % (0.0-3.0); LARGE UNSTAINED CELL # 0.3 K/mm3 (0.0-0.4); LARGE UNSTAINED CELL % 2.8 % (0.0-4.0); LYMPH # 2.9 K/mm3 (1.5-4.5); LYMPH % 23.7 % (24.0-44.0); MEAN CORPUSCULAR HEMOGLOBIN 29.7 pg (27.0-33.0); MEAN CORPUSCULAR HGB CONC 33.5 g/dl (32.0-36.5); MEAN CORPUSCULAR VOLUME 88.8 fl (80.0-96.0); MONO # 0.9 K/mm3 (0.0-0.8); MONO % 8.2 % (0.0-5.0); NEUTROPHILS # 6.6 K/mm3 (1.8-7.7); NEUTROPHILS % 61.3 % (36.0-66.0); PLATELET COUNT, AUTOMATED 162 k/mm3 (150-450); RED CELL DISTRIBUTION WIDTH 13.9 % (11.5-14.5); WHITE BLOOD COUNT 10.8 K/mm3 (4.0-10.0)
[2016-12-04 06:45] LABS: INR 4.47
[2016-12-04 07:14] LABS: CALCIUM LEVEL 8.4 MG/DL (8.5-10.1); CREATININE FOR GFR 1.13 MG/DL (0.55-1.02); GLOMERULAR FILTRATION RATE 53.4 (>51); MAGNESIUM LEVEL 2.1 MG/DL (1.8-2.4)
[2016-12-04] MEDS: NS 1,000 ML IV SCH ×2 (08:00→22:17)
[2016-12-04] MEDS: PANTOPRAZOLE 40MG TAB (PROTONIX) PO SCH (08:02)
[2016-12-04] MEDS: LACTOBACILLUS ACIDOPHILUS CAP (BACID) PO SCH (08:03)
[2016-12-04] MEDS: GABAPENTIN 400 MG CAP PO SCH ×2 (08:03→22:16)
[2016-12-04] MEDS: FAMOTIDINE 20 MG TAB PO SCH (08:03)
[2016-12-04 10:00] VITALS: BP 131/55
[2016-12-04] MEDS: VANCOMYCIN HCL 1,000 MG, VIAL MATE ADAPTER 1 EACH in D5W 250 ML IV SCH ×2 (11:44→22:15)
[2016-12-04] MEDS: PERCOCET 5MG/325MG TAB PO PRN (11:46)
[2016-12-04 14:00] VITALS: BP 135/73
--- NOTE | 2016-12-04 14:40 | PHACANCOPD ---
PHARMACY VANCOMYCIN DOSING Pt Demographics Demographics Patient Age:56 , Weight:81.800 , Gender: female Adjusted Body Weight Date: 12/02/16, Adjusted Body Weight: Kg Events Past 24 Hours Events Past 24 Hours: NO: Dialysis, Diuretic Therapy, Change in CrCl, Fever, Elevation in WBC, Pending Diagnostics, Pending Procedures, Other Vancomycin Vancomycin indication: Bacteremia Vancomycin Target Ranges: 15-20 mcg/ml Vancomycin Load Y/N: Yes Load Dose Date Time Vancomycin Load Dose: 1500mg Date: 12/02/16 Time: 1000 Vancomycin Dose Date: 12/04/16. Current Vancomycin Dose: [1gm IV q12h@11] Date: 12/02/16. Current Vancomycin Dose: [1gm IV q12h@11] Intermittent Dosing?: No Labs Labs Item Value Date Time White Blood Count 10.6 K/mm3 H 12/02/16 0636 White Blood Count 7.9 K/mm3 12/03/16 0745 White Blood Count 10.8 K/mm3 H 12/04/16 0624 Vancomycin Level Trough 13.9 UG/ML 12/04/16 1027 Creatinine 1.13 MG/DL H 12/04/16 0624 Vital Signs Label Value Date Time Patient Temperature 99.2 degrees F 12/04/16 1000 Temperature Source Core 12/04/16 1000 Patient Temperature 99.7 degrees F 12/04/16 1400 Temperature Source Core 12/04/16 1400 Micro Microbiology 12/02/16 Blood Culture - Preliminary, Resulted No Growth after 48 hours. All Specime... 12/02/16 Blood Culture - Preliminary, Resulted No Growth after 48 hours. All Specime... 12/01/16 Blood Culture - Preliminary, Resulted No Growth after 48 hours. All Specime... 11/30/16 Blood Culture - Final, Complete Staphylococcus Hominis Ssp Dane 11/29/16 Blood Culture - Preliminary, Resulted No Growth after 72 hours. All specime... 11/29/16 Blood Culture - Preliminary, Resulted No Growth after 72 hours. All specime... 12/02/16 Urine Culture - Final, Complete 11/29/16 Urine Culture - Final, Complete Creatinine Clearance Date:12/02/16. Creatinine Clearance: . Assessment and Plan Maintaining Current Dose?: Yes Reason for dose change: No Dose Change Pharmacist Note Pharmacist Note 12/04: Patient's trough came back at 13.9 today. Her fevers appear to be trending down, as well as her WBC at this time. The one set of blood cultures grew staph hominis. All other blood cultures at this time are negative. We will continue her Vancomycin at 1gm IV q12h for now and make adjustments as necessary. Date: 12/02/16. Pharmacist note: This is a patient with a history significant of kidney stones status post cystoscopy, lithotropsy, and stent placement who presented to the Emergency Department with fever, groin pain, and dysuria. Upon examination she was found to increase Scr, leukocytosis, and worsening renal function. She was originally being treated empirically for pyelonephritis , then antibiotics were tailored to treat possible underlying pneumonia. She is currently on Levaquin and Zosyn. Today Vancomycin was added for one set of gram positive cocci in clusters. Repeat cultures have been performed. All other micro is negative so far. WBC is improving, and patient has been afebrile today. Patient has no history of MRSA or Vancomycin use at our facility. She was loaded with 1500mg of Vancomycin then continued on Vancomycin 1gm IV q12h. Due to her fluctuation in kidney function we will monitor her closely and make adjustments as necessary. STEVE GRACIA PHARMACY Dec 04, 2016 14:40
--- NOTE | 2016-12-04 17:43 | IPNPDOC ---
Date Seen The patient was seen on 12/04/16. Progress Note Hospitalist Progress Note Subjective: Patient states that she is feeling when afebrile but the fevers make her miserable Objective: Physical Exam: Vitals: Vital Sign - Last 24 Hours 12/03/16 12/03/16 12/03/16 12/03/16 18:00 20:00 20:00 20:00 Temp 98.2 103.6 Pulse 95 Resp 19 20 B/P (MAP) 123/70 (87) Pulse Ox 92 O2 Delivery Room Air Room Air 12/03/16 12/03/16 12/04/16 12/04/16 20:30 22:00 02:00 05:47 Temp 101.6 98.6 Pulse 120 87 Resp 18 18 22 B/P (MAP) 135/73 (93) 107/58 (74) Pulse Ox 94 96 O2 Delivery Room Air Nasal Cannula Nasal Cannula O2 Flow Rate 2.0 2.0 12/04/16 12/04/16 12/04/16 12/04/16 06:00 09:30 10:00 11:46 Temp 98.6 99.2 Pulse 82 83 Resp 18 20 20 B/P (MAP) 160/92 (114) 131/55 (80) Pulse Ox 98 97 O2 Delivery Nasal Cannula Room Air Nasal Cannula O2 Flow Rate 2.0 2.0 12/04/16 12/04/16 12/04/16 12/04/16 12:16 14:00 16:33 17:03 Temp 99.7 Pulse 80 Resp 18 22 18 18 B/P (MAP) 135/73 (93) Pulse Ox 93 O2 Delivery Room Air General: awake, alert, no acute distress HEENT: Normal cephalic, atraumatic, extraocular movements intact CV: Regular rate and rhythm Lungs: Clear to auscultation bilaterally Abd: Soft, decreased BS, mild suprapubic TTP Extremities: No edema Neuro: Alert and oriented 3, normal speech Psych: Normal mood and affect Labs and Imaging: Laboratory Tests 12/04/16 06:24 Red Blood Count 3.69 L, Mean Corpuscular Volume 88.8, Mean Corpuscular Hemoglobin 29.7, Mean Corpuscular Hemoglobin Concent 33.5, Red Cell Distribution Width 13.9, Neutrophils (%) (Auto) 61.3, Lymphocytes (%) (Auto) 23.7 L, Monocytes (%) (Auto) 8.2 H, Eosinophils (%) (Auto) 3.4 H, Basophils (%) (Auto) 0.6, Neutrophils # (Auto) 6.6, Lymphocytes # (Auto) 2.9, Monocytes # ( Auto) 0.9 H, Eosinophils # (Auto) 0.4, Basophils # (Auto) 0.1, Calcium Level 8.4 L Assessment and Plan: 56-year-old female with history of nephrolithiasis, 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 Bowie the day prior to presentation. She presented to the ER with fevers and pubic pain and is admitted with pyelonephritis and acute kidney injury. She has also been found to have a likely pneumonia. We were initially consulted by urology for help in managing these postoperative medical complications and they have now requested that she be transferred to our service. 1. Pyelonephritis, continued fevers: The patient continues to be febrile, although there has been improvement in her white count from 17.2-10.8. Imaging does not show any evidence of hydronephrosis. Initial Blood cultures are negative, and the initial urine culture actually shows no growth. However, the patient received both dexamethasone and cefazolin on the day of her procedure, which could alter both her WBC and Ucx results. UA pretty strongly suggested infection. Management of nephrostomies as per the urology team. Repeat blood culture is growing staph hominis, but only 1 set of blood culture was collected at that time, and I believe this is an contaminant. Three other repeat blood cultures are all negative and a repeat Ucx is negative. Continue vanc and zoysn , as well as diflucan for culture several months ago that grew yeast. Given continued fevers, despite broad antibiotics, would like to assess for cardiac vegetations. Discussed with Dr. Gonzalez, and he recommends TTE prior to KULWANT. Will also check CRP and ESR to try to tease out if this is a drug fever. If these are unrevealing, may consider repeating CT abd/pel (although initial one showed no evidence of abscess) and/or tagged WBC scan. 2. Acute kidney injury: The patient's creatinine upon admission was 1.38, and then jumped to 1.53 but improved with IVF. After IVF were stopped, the Cr went back up. Continue IVF. Continue to monitor. 3. Pneumonia: The patient has been complaining of a cough and sputum production , chest x-ray does show concern for an infiltrate in both the lingula and the right base. It is unclear if this is a poorly timed community-acquired pneumonia , or if potentially, she aspirated when she received general anesthesia for her recent procedure. Given the timing, it is most likely that she aspirated. At this time, we will continue vanc and zosyn, which should cover both possibilities, as well as likely cover her pyelonephritis. 4. History of remote pulmonary embolism x6, concern for new acute PE: The patient has been on Coumadin for the last 10-12 years, but this was stopped preoperatively in anticipation of her surgery. She has been SOB with tachycardia , and intermittently had chest pain that she described as being like her former PEs. CTA is unclear about whether or not she has a new PE, and even after discussion with the reading radiologist, he states that it is near impossible to rule out a new acute PE. Given her symptoms, I am assuming a new PE. Coumadin has been resumed but INR is now supratherapeutic. Have stopped coumadin and lovenox. INR is now 4.47; patient is having hematuria; she reports to me that this actually began before her procedure, and her Hgb is stable from the day before so we will watch cautiously 5. Fibromyalgia: Continue home medications 6. Mediastinal nodes noted on CTA chest: need outpatient follow up with pulmonology DVT prophylaxis: supratherapeutic INR VS, I&O, 24H, Fishbone Vital Signs/I&O Vital Signs Date Time Temp Pulse Resp B/P (MAP) Pulse Ox O2 Delivery O2 Flow Rate FiO2 12/04/16 17:03 18 12/04/16 14:00 99.7 80 135/73 (93) 93 Room Air 12/04/16 10:00 2.0 I&O- Last 24 Hours up to 6 AM 12/04/16 06:00 Intake Total 1940 ml Output Total 1300 ml Balance 640 ml Laboratory Data 24H LABS Laboratory Tests 2 12/04/16 06:24: White Blood Count 10.8H, Red Blood Count 3.69L, Hemoglobin 11.0L, Hematocrit 32.8L, Mean Corpuscular Volume 88.8, Mean Corpuscular Hemoglobin 29.7, Mean Corpuscular Hemoglobin Concent 33.5, Red Cell Distribution Width 13.9, Platelet Count 162, Neutrophils (%) (Auto) 61.3, Lymphocytes (%) (Auto) 23.7L, Monocytes (%) (Auto) 8.2H, Eosinophils (%) (Auto) 3.4H, Basophils (%) (Auto) 0.6, Neutrophils # (Auto) 6.6, Lymphocytes # (Auto) 2.9, Monocytes # (Auto) 0.9H, Eosinophils # (Auto) 0.4, Basophils # (Auto) 0.1, Large Unclassified Cells % 2.8 , Large Unclassified Cells # 0.3, Prothrombin Time 44.9H, Prothromb Time International Ratio 4.47, Anion Gap 11, Glomerular Filtration Rate 53.4, Blood Urea Nitrogen 10, Creatinine 1.13H, Sodium Level 143, Potassium Level 4.0, Chloride Level 110H, Carbon Dioxide Level 22, Calcium Level 8.4L, Magnesium Level 2.1 12/04/16 10:27: Vancomycin Level Trough 13.9 CBC/BMP Laboratory Tests 12/04/16 06:24 Red Blood Count 3.69 L, Mean Corpuscular Volume 88.8, Mean Corpuscular Hemoglobin 29.7, Mean Corpuscular Hemoglobin Concent 33.5, Red Cell Distribution Width 13.9, Neutrophils (%) (Auto) 61.3, Lymphocytes (%) (Auto) 23.7 L, Monocytes (%) (Auto) 8.2 H, Eosinophils (%) (Auto) 3.4 H, Basophils (%) (Auto) 0.6, Neutrophils # (Auto) 6.6, Lymphocytes # (Auto) 2.9, Monocytes # ( Auto) 0.9 H, Eosinophils # (Auto) 0.4, Basophils # (Auto) 0.1, Calcium Level 8.4 L Microbiology Microbiology 12/02/16 Blood Culture - Preliminary, Resulted No Growth after 48 hours. All Specime... 12/02/16 Blood Culture - Preliminary, Resulted No Growth after 48 hours. All Specime... 12/01/16 Blood Culture - Preliminary, Resulted No Growth after 48 hours. All Specime... 11/30/16 Blood Culture - Final, Complete Staphylococcus Hominis Ssp Dane 11/29/16 Blood Culture - Final, Complete NO GROWTH AFTER 5 DAYS 11/29/16 Blood Culture - Final, Complete NO GROWTH AFTER 5 DAYS 12/02/16 Urine Culture - Final, Complete 11/29/16 Urine Culture - Final, Complete KAILA ALBA Dec 04, 2016 17:43
[2016-12-04 20:00] VITALS: BP 122/62
--- NOTE | 2016-12-04 21:16 | ECHO ---
DATE OF PROCEDURE: 12/04/2016 REFERRING PHYSICIAN: Dr. Crystal Givens and Dr. Yousuf Bowie INDICATION: Fever. HEIGHT: 62 inches WEIGHT: 180 pounds DIMENSIONS: IVS: 1.0 LV: 4.7 LVPW: 1.0 LA: 4.1 Aorta: 2.9 Ascending aorta: 2.9 RV: 2.9 FINDINGS: Study is of fair technical quality. The patient was in sinus rhythm during the study. Left ventricle is of normal size and systolic function with estimated ejection fraction (EF) around 60-65%. I do not appreciate any segmental wall motion abnormalities based on fair visualization. Right ventricle is also normal size and systolic function. Left atrium is at least mildly enlarged. Right atrium is probably normal size. Aortic valve appears normal based on limited views. Same applies for mitral and tricuspid valves. Pulmonic valve was not well seen. No pericardial effusion is noted. Inferior vena cava is of normal size and collapses with respiration indicative of normal central venous pressure. Aortic root, aortic arch and visualized segment of abdominal aorta appear normal. Doppler interrogation reveals no aortic valve disease. There is mild mitral insufficiency and trace tricuspid insufficiency. Calculated pulmonary artery pressure is within normal limits. Mitral inflow pattern and tissue Doppler imaging of mitral annulus reveal probably normal diastolic function of left ventricle (tissue Doppler velocities of mitral annulus is 8.6 and 12.6 cm/s for septal and lateral annulus respectively). CONCLUSIONS: 1. Study is of fair technical quality. 2. Normal LV size with normal LV systolic function and probably normal diastolic function. 3. No significant valvular disease. 4. Likely normal central venous pressure and pulmonary artery pressure. COMMENTS: Subacute bacterial endocarditis (SBE) prophylaxis is not recommended. Study does not provide for explanation of fever. If high clinical suspicion for bacterial endocarditis is present then transesophageal echocardiogram will provide better anatomical details. [facility]
[2016-12-04] MEDS: FLUCONAZOLE 100 MG TAB PO SCH (22:17)
[2016-12-05] VITALS: BP 126/58
[2016-12-05] MEDS: PERCOCET 5MG/325MG TAB PO PRN (00:55)
[2016-12-05] MEDS: PIPERACILLIN/TAZOBACTAM SOD 3.375 GM in D5W MINI-BAG PLUS 50 ML IV SCH ×3 (00:55→16:40)
[2016-12-05] MEDS: IPRATROPIUM 0.5MG/ALBUTEROL 2.5MG INH SOL UD 3ML (DUONEB)(J7620) NEB SCH ×4 (02:00→20:50)
[2016-12-05 04:45] VITALS: BP 133/66
[2016-12-05] MEDS: ACETAMINOPHEN TAB 650MG DOSE (2X325MG) PO PRN ×2 (04:59→16:40)
[2016-12-05] MEDS: oxyCODONE 5MG TAB PO PRN (05:00)
[2016-12-05 07:09] LABS: INR 4.3
[2016-12-05 07:23] LABS: BASO # 0.1 K/mm3 (0.0-0.2); BASO % 0.6 % (0.0-1.0); EOS # 0.7 K/mm3 (0.0-0.50); EOS % 6.4 % (0.0-3.0); LARGE UNSTAINED CELL # 0.3 K/mm3 (0.0-0.4); LARGE UNSTAINED CELL % 2.4 % (0.0-4.0); LYMPH % 27.4 % (24.0-44.0); MEAN CORPUSCULAR HEMOGLOBIN 29.5 pg (27.0-33.0); MEAN CORPUSCULAR HGB CONC 34.1 g/dl (32.0-36.5); MEAN CORPUSCULAR VOLUME 86.6 fl (80.0-96.0); MONO # 1.1 K/mm3 (0.0-0.8); MONO % 10.6 % (0.0-5.0); NEUTROPHILS # 5.4 K/mm3 (1.8-7.7); NEUTROPHILS % 52.6 % (36.0-66.0); PLATELET COUNT, AUTOMATED 204 k/mm3 (150-450); RED CELL DISTRIBUTION WIDTH 13.8 % (11.5-14.5); WHITE BLOOD COUNT 10.2 K/mm3 (4.0-10.0)
[2016-12-05 07:28] LABS: ANION GAP 11 MEQ/L (8-16); BLOOD UREA NITROGEN 7 MG/DL (7-18); CALCIUM LEVEL 8.3 MG/DL (8.5-10.1); CARBON DIOXIDE LEVEL 21 MEQ/L (21-32); CHLORIDE LEVEL 110 MEQ/L (98-107); CREATININE FOR GFR 0.95 MG/DL (0.55-1.02); GLOMERULAR FILTRATION RATE > 60.0 (>51); GLUCOSE, FASTING 124 MG/DL (70-105); POTASSIUM SERUM 3.3 MEQ/L (3.5-5.1); SODIUM LEVEL 142 MEQ/L (136-145)
[2016-12-05 07:33] LABS: ERYTHROCYTE SEDIMENTATION RATE 126 mm/hr (0-30)
[2016-12-05 08:00] VITALS: BP 122/57
[2016-12-05] MEDS: NS 1,000 ML IV SCH ×2 (09:35→19:17)
[2016-12-05] MEDS: GABAPENTIN 400 MG CAP PO SCH ×2 (09:35→20:48)
[2016-12-05] MEDS: LACTOBACILLUS ACIDOPHILUS CAP (BACID) PO SCH (09:35)
[2016-12-05] MEDS: PANTOPRAZOLE 40MG TAB (PROTONIX) PO SCH (09:36)
[2016-12-05] MEDS: FAMOTIDINE 20 MG TAB PO SCH (09:36)
[2016-12-05] MEDS: VANCOMYCIN HCL 1,000 MG, VIAL MATE ADAPTER 1 EACH in D5W 250 ML IV SCH (11:06)
[2016-12-05 12:00] VITALS: BP 153/78
[2016-12-05] MEDS ORDERED: GASTROGRAFIN SOLUTION 30ML PO ONE (12:45)
[2016-12-05] MEDS ORDERED: GASTROGRAFIN SOLUTION 30ML (Q9963) PO ONE (13:15)
[2016-12-05] MEDS ORDERED: ISOVUE-370 76% 100ML VIAL (Q9967) As Ordered ONE (14:12)
--- NOTE | 2016-12-05 15:12 | REP ---
CT of the abdomen pelvis with IV and bowel contrast: Comparison is 11/29/2016 without IV or bowel contrast. The visualized lung shi demonstrate dependent atelectasis and a tiny left pleural effusion, but are otherwise unremarkable. The hepatic parenchyma is homogeneous. The gallbladder is unremarkable. There is no biliary duct dilatation. Pancreas is normal size. Fatty atrophy of the pancreas is again identified, unchanged. The spleen is normal size and unremarkable. The adrenals and kidneys are unremarkable except for bilateral ureteral stents and the proximal and distal pigtails are in satisfactory locations. A right renal upper pole 1.6 cm cyst is incidentally identified. There is no hydronephrosis. There are no renal masses. No renal or pararenal abscess or mass. The abdominal aorta is unremarkable. There is no bowel distension or obstruction. There is no ascites. There are no inflammatory changes in the mesentery. There is no mass. Pelvis: The appendix is not identified, however there is no pericecal inflammation or abscess. There is a hysterectomy. The vaginal cuff and adnexa are unremarkable. There is no pelvic adenopathy or ascites. The pelvic bowel loops are unremarkable. There is no diverticulosis or diverticulitis. Impression: Fatty atrophy of the pancreas. Right renal cyst. Bilateral ureteral stents in satisfactory positions. No hydronephrosis. No ascites, adenopathy or mass. No bowel distension or obstruction. Signed by Mik Pinon MD 12/05/2016 03:03 P
[2016-12-05 16:00] VITALS: BP 130/69
--- NOTE | 2016-12-05 17:08 | IPNPDOC ---
Text Note Date of Service The patient was seen on 12/05/16. NOTE Subjective: Pt states she still has chills. Feels slightly better than yesterday. Objective: Vitals: (see below) General: No acute distress, laying comfortably in bed. HEENT: Moist mucous membranes. Neck: No JVD or lymphadenopathy Cardiac: RRR, No murmurs Pulm: Diminished breath sounds at the bases b/l. Abd: Suprapubic tenderness on palpation. No rebound/guarding/rigidity. ND + BS Ext: No edema or cyanosis Labs (see below) Images: CT abd/pelvis 12/05/16 Impression: Fatty atrophy of the pancreas. Right renal cyst. Bilateral ureteral stents in satisfactory positions. No hydronephrosis. No ascites, adenopathy or mass. No bowel distension or obstruction. CTA Chest IMPRESSION: 1. Patchy new infiltrate, atelectasis in the inferior lingular segment at the left lung base corresponding to the radiographic finding. 2. There are new bilateral small effusions and atelectatic changes posteriorly in deep sulci lower lung zones since the previous CT. 3. There is a low level of inflation but also hazy ground-glass and patchy opacities that suggest some atelectasis or edema. Heart with left ventricular enlargement but no pericardial thickening or effusion. 4. Mediastinal nodes up to 11 mm. These larger nodes are new compared to the previous study. There is also an apical pleuroparenchymal lesion 16 mm and unchanged from the previous study. 5. There appear to be chronic changes in the right lower lobe pulmonary artery with thrombus proximal portion of that vessel and flow into the medial and posterior basal segments but not the lateral basal segment. Although the last study was not a CT angiogram, this is a similar appearance in that no lateral basal segment flow evident on that study. I do not see definite thrombus in other vessels. Assessment/Plan 1. Sepsis likely secondary to pneumonia. ? Pyelonephritis on the CTA. Patient did have a recent urologic procedure with a positive urinalysis. Pt likely had a complicated urinary tract infection given her symptoms of dysuria and a positive urinalysis. The urine culture may have been negative secondary to use of antibiotics prior to the culture. The fevers are seen with weekly improving. Blood cultures have been negative for the exception of one which is likely contamination. Patient is on broad-spectrum antibiotics. We'll continue these antibiotics at this point. Transthoracic echocardiogram with no vegetation. Speak with Dr. Uriostegui, we will does not recommend a KULWANT at this time. We'll continue to monitor patient. Repeat CAT scan the abdomen and pelvis with contrast with no abscess. 2. ADRIANA - resolved. COnt to monitor. 3. Persistent fevers- in addition to #1, patient did have a history of pulmonary embolus on 6. On admission, her anticoagulation was held temporarily , however the patient's persistent fevers may be partly attributed to pulmonary embolism. The patient has been restarted on her anticoagulation her INR is currently supratherapeutic. We will hold Coumadin until INR is less than 3. 4. Hematuria- resolved. Status post urologic procedure. 5. Fibromyalgia- continue home meds 6. Placed on the lymph nodes- we will need outpatient pulmonary follow-up DVT prophy: Coumadin VS,Fishbone, I+O VS, Fishbone, I+O Laboratory Tests 12/05/16 06:50 Red Blood Count 3.51 L, Mean Corpuscular Volume 86.6, Mean Corpuscular Hemoglobin 29.5, Mean Corpuscular Hemoglobin Concent 34.1, Red Cell Distribution Width 13.8, Neutrophils (%) (Auto) 52.6, Lymphocytes (%) (Auto) 27.4, Monocytes (%) (Auto) 10.6 H, Eosinophils (%) (Auto) 6.4 H, Basophils (%) ( Auto) 0.6, Neutrophils # (Auto) 5.4, Lymphocytes # (Auto) 3.0, Monocytes # (Auto ) 1.1 H, Eosinophils # (Auto) 0.7 H, Basophils # (Auto) 0.1, Calcium Level 8.3 L Vital Signs Date Time Temp Pulse Resp B/P (MAP) Pulse Ox O2 Delivery O2 Flow Rate FiO2 12/05/16 16:00 100.6 88 20 130/69 (89) 92 Room Air 12/04/16 10:00 2.0 I&O- Last 24 Hours up to 6 AM 12/05/16 06:00 Intake Total 1770 ml Output Total 1250 ml Balance 520 ml FANI JONES MD Dec 05, 2016 17:08
[2016-12-05 20:00] VITALS: BP 130/67
[2016-12-05] MEDS: FLUCONAZOLE 100 MG TAB PO SCH (20:48)
[2016-12-06] VITALS: BP 142/80
[2016-12-06] MEDS: VANCOMYCIN HCL 1,000 MG, VIAL MATE ADAPTER 1 EACH in D5W 250 ML IV SCH ×3 (00:34→23:21)
[2016-12-06] MEDS: PERCOCET 5MG/325MG TAB PO PRN (00:35)
[2016-12-06] MEDS: IPRATROPIUM 0.5MG/ALBUTEROL 2.5MG INH SOL UD 3ML (DUONEB)(J7620) NEB SCH ×5 (01:45→20:03)
[2016-12-06] MEDS: PIPERACILLIN/TAZOBACTAM SOD 3.375 GM in D5W MINI-BAG PLUS 50 ML IV SCH ×4 (02:14→23:21)
[2016-12-06 04:00] VITALS: BP 129/60
[2016-12-06 07:22] LABS: INR 3.73
[2016-12-06 07:24] LABS: BASO # 0.1 K/mm3 (0.0-0.2); BASO % 0.6 % (0.0-1.0); EOS # 0.6 K/mm3 (0.0-0.50); EOS % 6.4 % (0.0-3.0); LARGE UNSTAINED CELL # 0.3 K/mm3 (0.0-0.4); LARGE UNSTAINED CELL % 2.8 % (0.0-4.0); LYMPH # 2.4 K/mm3 (1.5-4.5); LYMPH % 24.6 % (24.0-44.0); MEAN CORPUSCULAR HEMOGLOBIN 29.6 pg (27.0-33.0); MEAN CORPUSCULAR HGB CONC 33.5 g/dl (32.0-36.5); MEAN CORPUSCULAR VOLUME 88.2 fl (80.0-96.0); MONO # 0.9 K/mm3 (0.0-0.8); NEUTROPHILS # 5.4 K/mm3 (1.8-7.7); NEUTROPHILS % 56.7 % (36.0-66.0); PLATELET COUNT, AUTOMATED 287 k/mm3 (150-450); RED CELL DISTRIBUTION WIDTH 13.6 % (11.5-14.5); WHITE BLOOD COUNT 9.6 K/mm3 (4.0-10.0)
[2016-12-06 07:27] LABS: ANION GAP 12 MEQ/L (8-16); BLOOD UREA NITROGEN 3 MG/DL (7-18); CALCIUM LEVEL 8.7 MG/DL (8.5-10.1); CARBON DIOXIDE LEVEL 21 MEQ/L (21-32); CHLORIDE LEVEL 111 MEQ/L (98-107); CREATININE FOR GFR 0.92 MG/DL (0.55-1.02); GLOMERULAR FILTRATION RATE > 60.0 (>51); GLUCOSE, FASTING 110 MG/DL (70-105); POTASSIUM SERUM 3.2 MEQ/L (3.5-5.1); SODIUM LEVEL 144 MEQ/L (136-145)
[2016-12-06 08:00] VITALS: BP 165/88
[2016-12-06] MEDS ORDERED: POTASSIUM CHLORIDE 10 MEQ SR TABLET PO ONE ×2 (08:15→10:30)
[2016-12-06] MEDS: LACTOBACILLUS ACIDOPHILUS CAP (BACID) PO SCH (08:27)
[2016-12-06] MEDS: FAMOTIDINE 20 MG TAB PO SCH (08:28)
[2016-12-06] MEDS: GABAPENTIN 400 MG CAP PO SCH ×2 (08:28→20:54)
[2016-12-06] MEDS: PANTOPRAZOLE 40MG TAB (PROTONIX) PO SCH (08:28)
[2016-12-06 09:23] LABS: ERYTHROCYTE SEDIMENTATION RATE 126 mm/hr (0-30)
[2016-12-06] MEDS: NS 1,000 ML IV SCH ×2 (09:26→20:54)
[2016-12-06 12:00] VITALS: BP 129/58
--- NOTE | 2016-12-06 13:40 | PHACANCOPD ---
PHARMACY VANCOMYCIN DOSING Pt Demographics Demographics Patient Age:56 , Weight:81.800 , Gender: female Adjusted Body Weight Date: 12/02/16, Adjusted Body Weight: Kg Vancomycin Vancomycin indication: Bacteremia Vancomycin Target Ranges: 15-20 mcg/ml Vancomycin Load Y/N: Yes Load Dose Date Time Vancomycin Load Dose: 1500mg Date: 12/02/16 Time: 1000 Vancomycin Dose Date: 12/04/16. Current Vancomycin Dose: [1gm IV q12h@11] Date: 12/02/16. Current Vancomycin Dose: [1gm IV q12h@11] Intermittent Dosing?: No Labs Micro Microbiology 12/02/16 Blood Culture - Preliminary, Resulted No Growth after 72 hours. All specime... 12/02/16 Blood Culture - Preliminary, Resulted No Growth after 72 hours. All specime... 12/01/16 Blood Culture - Preliminary, Resulted No Growth after 72 hours. All specime... 11/30/16 Blood Culture - Final, Complete Staphylococcus Hominis Ssp Dane 11/29/16 Blood Culture - Final, Complete NO GROWTH AFTER 5 DAYS 11/29/16 Blood Culture - Final, Complete NO GROWTH AFTER 5 DAYS 12/02/16 Urine Culture - Final, Complete 11/29/16 Urine Culture - Final, Complete Creatinine Clearance Date:12/02/16. Creatinine Clearance: . Assessment and Plan Maintaining Current Dose?: Yes Reason for dose change: No Dose Change Pharmacist Note Pharmacist Note 12/06/16: Today is Day #5 of empiric zosyn/vancomycin therapy. Scr remains stable today, and has improved since admission. A follow-up vancomycin trough has been scheduled tomorrow, 12/07/16 @1000. We will continue to monitor and make adjustments if needed. 12/04: Patient's trough came back at 13.9 today. Her fevers appear to be trending down, as well as her WBC at this time. The one set of blood cultures grew staph hominis. All other blood cultures at this time are negative. We will continue her Vancomycin at 1gm IV q12h for now and make adjustments as necessary. Date: 12/02/16. Pharmacist note: This is a patient with a history significant of kidney stones status post cystoscopy, lithotropsy, and stent placement who presented to the Emergency Department with fever, groin pain, and dysuria. Upon examination she was found to increase Scr, leukocytosis, and worsening renal function. She was originally being treated empirically for pyelonephritis , then antibiotics were tailored to treat possible underlying pneumonia. She is currently on Levaquin and Zosyn. Today Vancomycin was added for one set of gram positive cocci in clusters. Repeat cultures have been performed. All other micro is negative so far. WBC is improving, and patient has been afebrile today. Patient has no history of MRSA or Vancomycin use at our facility. She was loaded with 1500mg of Vancomycin then continued on Vancomycin 1gm IV q12h. Due to her fluctuation in kidney function we will monitor her closely and make adjustments as necessary. [facility] Dec 06, 2016 13:40
--- NOTE | 2016-12-06 15:26 | IPNPDOC ---
Text Note Date of Service The patient was seen on 12/06/16. NOTE Subjective: Denies fevers or chills. States she had left-sided chest wall pain last night as she was tense in her arm when the IV sites in her left upper extremity became painful. The patient states this chest wall pain was 10 out of 10, sharp, nonradiating, lasting hours, better with massaging, non-positional, nonpleuritic. States she had a recent stress test a few days ago with Dr. Ruiz which was negative. Objective: Vitals: (see below) General: No acute distress, laying comfortably in bed. HEENT: Moist mucous membranes. Neck: No JVD or lymphadenopathy Cardiac: RRR, No murmurs Pulm: Diminished breath sounds at the bases b/l. Abd: Suprapubic tenderness on palpation improved. No rebound/guarding/rigidity. ND + BS Ext: No edema or cyanosis. Left forearm where IV sites was placed has area of erythema streaking. No abscess or induration. Distal pulses intact. Labs (see below) Images: CT abd/pelvis 12/05/16 Impression: Fatty atrophy of the pancreas. Right renal cyst. Bilateral ureteral stents in satisfactory positions. No hydronephrosis. No ascites, adenopathy or mass. No bowel distension or obstruction. CTA Chest IMPRESSION: 1. Patchy new infiltrate, atelectasis in the inferior lingular segment at the left lung base corresponding to the radiographic finding. 2. There are new bilateral small effusions and atelectatic changes posteriorly in deep sulci lower lung zones since the previous CT. 3. There is a low level of inflation but also hazy ground-glass and patchy opacities that suggest some atelectasis or edema. Heart with left ventricular enlargement but no pericardial thickening or effusion. 4. Mediastinal nodes up to 11 mm. These larger nodes are new compared to the previous study. There is also an apical pleuroparenchymal lesion 16 mm and unchanged from the previous study. 5. There appear to be chronic changes in the right lower lobe pulmonary artery with thrombus proximal portion of that vessel and flow into the medial and posterior basal segments but not the lateral basal segment. Although the last study was not a CT angiogram, this is a similar appearance in that no lateral basal segment flow evident on that study. I do not see definite thrombus in other vessels. Assessment/Plan 1. Sepsis likely secondary to pneumonia. Patient did have a recent urologic procedure with a positive urinalysis. Pt likely had a complicated urinary tract infection given her symptoms of dysuria and a positive urinalysis. The urine culture may have been negative secondary to use of antibiotics prior to the culture. The fevers are seen with weekly improving. Blood cultures have been negative for the exception of one which is likely contamination. Patient is on broad-spectrum antibiotics. We'll continue these antibiotics at this point. Transthoracic echocardiogram with no vegetation. Speak with Dr. Uriostegui, we will does not recommend a KULWANT at this time. We'll continue to monitor patient. Repeat CAT scan the abdomen and pelvis with contrast with no abscess. Also has streaking and warmth adjacent to where the IV site was placed. The IVC has since been removed. Patient's remains afebrile afterwards. 2. ADRIANA - resolved. COnt to monitor. 3. Persistent fevers- in addition to #1, patient did have a history of pulmonary embolus on 6. On admission, her anticoagulation was held temporarily , however the patient's persistent fevers may be partly attributed to pulmonary embolism. The patient has been restarted on her anticoagulation her INR is currently supratherapeutic. We will hold Coumadin until INR is less than 3. 4. Hematuria- resolved. Status post urologic procedure. 5. Fibromyalgia- continue home meds 6. Placed on the lymph nodes- we will need outpatient pulmonary follow-up DVT prophy: Coumadin Out of bed and ambulate. VS,Fishbone, I+O VS, Fishbone, I+O Laboratory Tests 12/06/16 06:51 Red Blood Count 3.65 L, Mean Corpuscular Volume 88.2, Mean Corpuscular Hemoglobin 29.6, Mean Corpuscular Hemoglobin Concent 33.5, Red Cell Distribution Width 13.6, Neutrophils (%) (Auto) 56.7, Lymphocytes (%) (Auto) 24.6, Monocytes (%) (Auto) 9.0 H, Eosinophils (%) (Auto) 6.4 H, Basophils (%) ( Auto) 0.6, Neutrophils # (Auto) 5.4, Lymphocytes # (Auto) 2.4, Monocytes # (Auto ) 0.9 H, Eosinophils # (Auto) 0.6 H, Basophils # (Auto) 0.1, Calcium Level 8.7 Vital Signs Date Time Temp Pulse Resp B/P (MAP) Pulse Ox O2 Delivery O2 Flow Rate FiO2 12/06/16 12:00 98.3 68 18 129/58 (81) 94 Room Air 12/04/16 10:00 2.0 I&O- Last 24 Hours up to 6 AM 12/06/16 05:59 Intake Total 2190 ml Output Total 450 ml Balance 1740 ml FANI JONES MD Dec 06, 2016 15:26
[2016-12-06 16:00] VITALS: BP 142/73
[2016-12-06 20:00] VITALS: BP 136/70
[2016-12-06] MEDS: FLUCONAZOLE 100 MG TAB PO SCH (20:54)
[2016-12-07] VITALS: BP 144/73
[2016-12-07 04:00] VITALS: BP 105/51
[2016-12-07 07:05] LABS: BASO % 0.4 % (0.0-1.0); EOS # 0.6 K/mm3 (0.0-0.50); EOS % 5.9 % (0.0-3.0); LARGE UNSTAINED CELL # 0.2 K/mm3 (0.0-0.4); LARGE UNSTAINED CELL % 1.8 % (0.0-4.0); LYMPH # 2.3 K/mm3 (1.5-4.5); LYMPH % 19.2 % (24.0-44.0); MEAN CORPUSCULAR HEMOGLOBIN 28.8 pg (27.0-33.0); MEAN CORPUSCULAR HGB CONC 32.8 g/dl (32.0-36.5); MEAN CORPUSCULAR VOLUME 87.8 fl (80.0-96.0); MONO % 9.5 % (0.0-5.0); NEUTROPHILS # 6.9 K/mm3 (1.8-7.7); NEUTROPHILS % 63.2 % (36.0-66.0); RED CELL DISTRIBUTION WIDTH 14.1 % (11.5-14.5); WHITE BLOOD COUNT 10.9 K/mm3 (4.0-10.0)
[2016-12-07 07:14] LABS: PLATELET COUNT, AUTOMATED 392 k/mm3 (150-450)
[2016-12-07 07:23] LABS: ANION GAP 11 MEQ/L (8-16); BLOOD UREA NITROGEN 3 MG/DL (7-18); CALCIUM LEVEL 8.6 MG/DL (8.5-10.1); CARBON DIOXIDE LEVEL 21 MEQ/L (21-32); CHLORIDE LEVEL 113 MEQ/L (98-107); CREATININE FOR GFR 0.79 MG/DL (0.55-1.02); GLOMERULAR FILTRATION RATE > 60.0 (>51); GLUCOSE, FASTING 109 MG/DL (70-105); POTASSIUM SERUM 3.1 MEQ/L (3.5-5.1); SODIUM LEVEL 145 MEQ/L (136-145)
[2016-12-07 07:30] LABS: ERYTHROCYTE SEDIMENTATION RATE 125 mm/hr (0-30); INR 3.2
[2016-12-07] MEDS ORDERED: POTASSIUM CHLORIDE 10 MEQ SR TABLET PO ONE ×2 (07:45→10:30)
[2016-12-07 08:00] VITALS: BP 150/78
[2016-12-07] MEDS: PIPERACILLIN/TAZOBACTAM SOD 3.375 GM in D5W MINI-BAG PLUS 50 ML IV SCH (08:12)
[2016-12-07] MEDS: GABAPENTIN 400 MG CAP PO SCH ×2 (08:13→21:42)
[2016-12-07] MEDS: LACTOBACILLUS ACIDOPHILUS CAP (BACID) PO SCH ×2 (08:13→21:41)
[2016-12-07] MEDS: FAMOTIDINE 20 MG TAB PO SCH (08:13)
[2016-12-07] MEDS: PANTOPRAZOLE 40MG TAB (PROTONIX) PO SCH (08:13)
[2016-12-07] MEDS: NS 1,000 ML IV SCH ×3 (08:15→21:41)
[2016-12-07] MEDS: IPRATROPIUM 0.5MG/ALBUTEROL 2.5MG INH SOL UD 3ML (DUONEB)(J7620) NEB SCH ×3 (09:20→19:22)
[2016-12-07 12:00] VITALS: BP 112/54
--- NOTE | 2016-12-07 14:36 | IPNPDOC ---
Text Note Date of Service The patient was seen on 12/07/16. NOTE Subjective:Feels well today. Would like to go home soon. States she had diarrhea 10x/day, however it was not witnessed by the nursing staff. Objective: Vitals: (see below) General: No acute distress, laying comfortably in Chair HEENT: Moist mucous membranes. Neck: No JVD or lymphadenopathy Cardiac: RRR, No murmurs Pulm: Diminished breath sounds at the bases b/l. Abd: NT ND + BS Ext: No edema or cyanosis. Left forearm erythema streaking resolved. No abscess or induration. Distal pulses intact. Labs (see below) Images: CT abd/pelvis 12/05/16 Impression: Fatty atrophy of the pancreas. Right renal cyst. Bilateral ureteral stents in satisfactory positions. No hydronephrosis. No ascites, adenopathy or mass. No bowel distension or obstruction. CTA Chest IMPRESSION: 1. Patchy new infiltrate, atelectasis in the inferior lingular segment at the left lung base corresponding to the radiographic finding. 2. There are new bilateral small effusions and atelectatic changes posteriorly in deep sulci lower lung zones since the previous CT. 3. There is a low level of inflation but also hazy ground-glass and patchy opacities that suggest some atelectasis or edema. Heart with left ventricular enlargement but no pericardial thickening or effusion. 4. Mediastinal nodes up to 11 mm. These larger nodes are new compared to the previous study. There is also an apical pleuroparenchymal lesion 16 mm and unchanged from the previous study. 5. There appear to be chronic changes in the right lower lobe pulmonary artery with thrombus proximal portion of that vessel and flow into the medial and posterior basal segments but not the lateral basal segment. Although the last study was not a CT angiogram, this is a similar appearance in that no lateral basal segment flow evident on that study. I do not see definite thrombus in other vessels. Assessment/Plan 1. Sepsis likely secondary to pneumonia. Patient did have a recent urologic procedure with a positive urinalysis. Pt likely had a complicated urinary tract infection given her symptoms of dysuria and a positive urinalysis. The urine culture may have been negative secondary to use of antibiotics prior to the culture. The fevers are seen with weekly improving. Blood cultures have been negative for the exception of one which is likely contamination. Patient is on broad-spectrum antibiotics. We'll continue these antibiotics at this point. Transthoracic echocardiogram with no vegetation. Speak with Dr. Uriostegui, we will does not recommend a KULWANT at this time. We'll continue to monitor patient. Repeat CAT scan the abdomen and pelvis with contrast with no abscess. Cellulitis/phlebitis at IV site resolved. The IV has since been removed. D/c Vanco/meropenem. Start keflex. CRP improving. 2. ADRIANA - resolved. COnt to monitor. 3. Persistent fevers- in addition to #1, patient did have a history of pulmonary embolus on 6. On admission, her anticoagulation was held temporarily , however the patient's persistent fevers may be partly attributed to pulmonary embolism. The patient has been restarted on her anticoagulation her INR is currently supratherapeutic. We will hold Coumadin until INR is less than 3. 4. Hematuria- resolved. Status post urologic procedure. 5. Fibromyalgia- continue home meds 6. Placed on the lymph nodes- we will need outpatient pulmonary follow-up 7. ? diarrhea. not witnessed by staff. GI panel ordered. DVT prophy: Coumadin Out of bed and ambulate. VS,Fishbone, I+O VS, Fishbone, I+O Laboratory Tests 12/07/16 06:25 Red Blood Count 3.57 L, Mean Corpuscular Volume 87.8, Mean Corpuscular Hemoglobin 28.8, Mean Corpuscular Hemoglobin Concent 32.8, Red Cell Distribution Width 14.1, Neutrophils (%) (Auto) 63.2, Lymphocytes (%) (Auto) 19.2 L, Monocytes (%) (Auto) 9.5 H, Eosinophils (%) (Auto) 5.9 H, Basophils (%) (Auto) 0.4, Neutrophils # (Auto) 6.9, Lymphocytes # (Auto) 2.3, Monocytes # ( Auto) 1.0 H, Eosinophils # (Auto) 0.6 H, Basophils # (Auto) 0.0, Calcium Level 8.6 Vital Signs Date Time Temp Pulse Resp B/P (MAP) Pulse Ox O2 Delivery O2 Flow Rate FiO2 12/07/16 12:00 98.4 71 18 112/54 (73) 95 Room Air 12/04/16 10:00 2.0 I&O- Last 24 Hours up to 6 AM 12/07/16 06:00 Intake Total 1320 ml Output Total 1100 ml Balance 220 ml FANI JONES MD Dec 07, 2016 14:36
[2016-12-07] MEDS: CEPHALEXIN 500 MG CAP PO SCH ×2 (15:41→21:41)
[2016-12-07 16:00] VITALS: BP 152/78
[2016-12-07 20:00] VITALS: BP 134/68
[2016-12-07] MEDS: FLUCONAZOLE 100 MG TAB PO SCH (21:42)
[2016-12-07] MEDS: PERCOCET 5MG/325MG TAB PO PRN (23:42)
[2016-12-08] VITALS: BP 125/84
[2016-12-08] MEDS: oxyCODONE 5MG TAB PO PRN (00:46)
[2016-12-08] MEDS: IPRATROPIUM 0.5MG/ALBUTEROL 2.5MG INH SOL UD 3ML (DUONEB)(J7620) NEB SCH ×2 (02:00→09:13)
[2016-12-08 04:00] VITALS: BP_SYST 143; BP_SYST 145; BP_DIAS 70; BP_DIAS 75
[2016-12-08] MEDS: ACETAMINOPHEN TAB 650MG DOSE (2X325MG) PO PRN (04:18)
[2016-12-08] MEDS: NS 1,000 ML IV SCH (07:24)
[2016-12-08 08:00] VITALS: BP 140/69
[2016-12-08 08:11] LABS: ANION GAP 13 MEQ/L (8-16); BLOOD UREA NITROGEN 3 MG/DL (7-18); CALCIUM LEVEL 8.6 MG/DL (8.5-10.1); CARBON DIOXIDE LEVEL 19 MEQ/L (21-32); CHLORIDE LEVEL 115 MEQ/L (98-107); CREATININE FOR GFR 0.75 MG/DL (0.55-1.02); GLOMERULAR FILTRATION RATE > 60.0 (>51); GLUCOSE, FASTING 94 MG/DL (70-105); SODIUM LEVEL 147 MEQ/L (136-145)
[2016-12-08] MEDS ORDERED: POTASSIUM CHLORIDE 10 MEQ SR TABLET PO ONE ×2 (08:45→10:30)
[2016-12-08] MEDS: LACTOBACILLUS ACIDOPHILUS CAP (BACID) PO SCH (08:54)
[2016-12-08] MEDS: GABAPENTIN 400 MG CAP PO SCH (08:55)
[2016-12-08] MEDS: CEPHALEXIN 500 MG CAP PO SCH (08:55)
[2016-12-08] MEDS: PANTOPRAZOLE 40MG TAB (PROTONIX) PO SCH (08:55)
[2016-12-08] MEDS: FAMOTIDINE 20 MG TAB PO SCH (08:56)
[2016-12-08 09:40] LABS: ERYTHROCYTE SEDIMENTATION RATE 109 mm/hr (0-30)
[2016-12-08 10:23] LABS: BASO % 0.4 % (0.0-1.0); EOS # 0.7 K/mm3 (0.0-0.50); EOS % 6.1 % (0.0-3.0); LARGE UNSTAINED CELL # 0.1 K/mm3 (0.0-0.4); LARGE UNSTAINED CELL % 1.2 % (0.0-4.0); LYMPH # 3.3 K/mm3 (1.5-4.5); MEAN CORPUSCULAR HEMOGLOBIN 29.7 pg (27.0-33.0); MEAN CORPUSCULAR HGB CONC 33.7 g/dl (32.0-36.5); MEAN CORPUSCULAR VOLUME 88.2 fl (80.0-96.0); MONO # 1.2 K/mm3 (0.0-0.8); MONO % 10.1 % (0.0-5.0); NEUTROPHILS # 6.2 K/mm3 (1.8-7.7); NEUTROPHILS % 54.2 % (36.0-66.0); PLATELET COUNT, AUTOMATED 391 k/mm3 (150-450); RED CELL DISTRIBUTION WIDTH 14.4 % (11.5-14.5); WHITE BLOOD COUNT 11.4 K/mm3 (4.0-10.0)
[2016-12-08] MEDS ORDERED: CEPH500C PO (12:05)
[2016-12-08] MEDS ORDERED: K-TA1TAB PO (12:05)
[2016-12-08] MEDS ORDERED: OXYB5TAB10 PO (12:05)
[2016-12-08] MEDS ORDERED: RISATAB3 PO (12:05)
--- NOTE | 2016-12-08 17:27 | DS.PDOC ---
Discharge Summary General Date of Admission Nov 29, 2016 at 19:33 Date of Discharge 12/08/16 Attending Physician: FANI JONES MD Specialist/Consultants Involve: ROBIN MUNGUIA MD Discharge Summary PROCEDURES PERFORMED DURING STAY: None. ADMITTING/DISCHARGE DIAGNOSES: 1. Sepsis secondary to community acquired pneumonia and complicated urinary tract infection 2. Acute kidney injury 3. Hematuria status post urologic procedure resolved 4. Fibromyalgia 5. Diarrhea improved 6. Hypokalemia COMPLICATIONS/CHIEF COMPLAINT: HISTORY OF PRESENT ILLNESS/HOSPITAL COURSE: This is a 56-year-old female with a past medical history of fibromyalgia and nephrolithiasis who had recently had a stent placement by urology, and presents with cough, shortness of breath, and suprapubic pain with dysuria. Patient was treated for sepsis secondary to moan pneumonia as well as complicated urine tract infection. During the course of hospitalization, patient did have persistent fevers which have subsided. Patient was initially placed on broad-spectrum antibiotics, and although her cultures were negative, this may be secondary to the fact that she had antibiotics prior to the stent placement. Patient had significant improvement since admission. She did have some mild diarrhea secondary to the antibiotics and was placed on lactobacillus. Her GI panel was negative. Her diarrhea has improved. She did develop hypokalemia from the diarrhea, for which she had potassium supplementation. She was given a prescription for BMP with results to be sent to her primary care physician so that her potassium levels monitored. The patient's acute kidney injury which was noted on presentation and hematuria have resolved. Her INR was supratherapeutic her Coumadin was subsequently held. She will need to have her INR monitored by her primary care physician. She states she has an INR machine at home, where she checks it. I have advised her to continue holding her Coumadin until her INR is less than 3. She also had an area of cellulitis in her left forearm from an IV that was placed. The area of cellulitis and phlebitis have subsequently resolved with antibiotics. Patient is to return to the ED if symptoms worsen. DISCHARGE MEDICATIONS: Please see below. ALLERGIES: Please see below. PHYSICAL EXAMINATION ON DISCHARGE: Vitals: (see below) General: No acute distress, laying comfortably in Chair HEENT: Moist mucous membranes. Neck: No JVD or lymphadenopathy Cardiac: RRR, No murmurs Pulm: Diminished breath sounds at the bases b/l. Abd: NT ND + BS Ext: No edema or cyanosis. LABORATORY DATA: Please see below. IMAGING: CT abd/pelvis 12/05/16 Impression: Fatty atrophy of the pancreas. Right renal cyst. Bilateral ureteral stents in satisfactory positions. No hydronephrosis. No ascites, adenopathy or mass. No bowel distension or obstruction. CTA Chest IMPRESSION: 1. Patchy new infiltrate, atelectasis in the inferior lingular segment at the left lung base corresponding to the radiographic finding. 2. There are new bilateral small effusions and atelectatic changes posteriorly in deep sulci lower lung zones since the previous CT. 3. There is a low level of inflation but also hazy ground-glass and patchy opacities that suggest some atelectasis or edema. Heart with left ventricular enlargement but no pericardial thickening or effusion. 4. Mediastinal nodes up to 11 mm. These larger nodes are new compared to the previous study. There is also an apical pleuroparenchymal lesion 16 mm and unchanged from the previous study. 5. There appear to be chronic changes in the right lower lobe pulmonary artery with thrombus proximal portion of that vessel and flow into the medial and posterior basal segments but not the lateral basal segment. Although the last study was not a CT angiogram, this is a similar appearance in that no lateral basal segment flow evident on that study. I do not see definite thrombus in other vessels. PROGNOSIS: Fair ACTIVITY: As tolerated. DIET: Regular DISCHARGE PLAN/DISPOSITION: Discharge home DISCHARGE INSTRUCTIONS: 1. Follow-up with PCP and urology in one week. DISCHARGE CONDITION: Stable. TIME SPENT ON DISCHARGE: Greater than 30 minutes. Vital Signs/I&Os Vital Signs Date Time Temp Pulse Resp B/P (MAP) Pulse Ox O2 Delivery O2 Flow Rate FiO2 12/08/16 08:15 Room Air 12/08/16 08:00 97.9 74 20 140/69 (92) 95 12/04/16 10:00 2.0 I&O- Last 24 Hours up to 6 AM 12/08/16 06:00 Intake Total 3720 ml Output Total 1500 ml Balance 2220 ml Laboratory Data Labs 24H Laboratory Tests 2 12/08/16 07:11: White Blood Count 11.4H, Red Blood Count 3.29L, Hemoglobin 9.8L, Hematocrit 29.1L, Mean Corpuscular Volume 88.2, Mean Corpuscular Hemoglobin 29.7, Mean Corpuscular Hemoglobin Concent 33.7, Red Cell Distribution Width 14.4, Platelet Count 391, Neutrophils (%) (Auto) 54.2, Lymphocytes (%) (Auto) 28.0, Monocytes ( %) (Auto) 10.1H, Eosinophils (%) (Auto) 6.1H, Basophils (%) (Auto) 0.4, Neutrophils # (Auto) 6.2, Lymphocytes # (Auto) 3.3, Monocytes # (Auto) 1.2H, Eosinophils # (Auto) 0.7H, Basophils # (Auto) 0.0, Large Unclassified Cells % 1.2, Large Unclassified Cells # 0.1, Erythrocyte Sedimentation Rate 109H, Anion Gap 13, Glomerular Filtration Rate > 60.0, Blood Urea Nitrogen 3L, Creatinine 0.75, Sodium Level 147H, Potassium Level 3.0L, Chloride Level 115H, Carbon Dioxide Level 19L, Calcium Level 8.6, C-Reactive Protein, Quantitative 2.50H CBC/BMP Laboratory Tests 12/08/16 07:11 Red Blood Count 3.29 L, Mean Corpuscular Volume 88.2, Mean Corpuscular Hemoglobin 29.7, Mean Corpuscular Hemoglobin Concent 33.7, Red Cell Distribution Width 14.4, Neutrophils (%) (Auto) 54.2, Lymphocytes (%) (Auto) 28.0, Monocytes (%) (Auto) 10.1 H, Eosinophils (%) (Auto) 6.1 H, Basophils (%) ( Auto) 0.4, Neutrophils # (Auto) 6.2, Lymphocytes # (Auto) 3.3, Monocytes # (Auto ) 1.2 H, Eosinophils # (Auto) 0.7 H, Basophils # (Auto) 0.0, Calcium Level 8.6 Microbiology Microbiology 12/02/16 Blood Culture - Final, Complete NO GROWTH AFTER 5 DAYS 12/02/16 Blood Culture - Final, Complete NO GROWTH AFTER 5 DAYS 12/01/16 Blood Culture - Final, Complete NO GROWTH AFTER 5 DAYS 11/30/16 Blood Culture - Final, Complete Staphylococcus Hominis Ssp Dane 11/29/16 Blood Culture - Final, Complete NO GROWTH AFTER 5 DAYS 11/29/16 Blood Culture - Final, Complete NO GROWTH AFTER 5 DAYS 12/07/16 Gastrointestinal Tract Panel (PCR) - Final, Complete 12/02/16 Urine Culture - Final, Complete 11/29/16 Urine Culture - Final, Complete Discharge Medications Scheduled (Keeley-Bid Probiotic) 1 Tab Tab, 2 EA PO BID Cephalexin Monohydrate (Cephalexin) 500 Mg Cap, 500 MG PO BID Gabapentin (Gabapentin) 400 Mg Cap, 800 MG PO BID, (Reported) Lactobacillus Acidophilus (Probiotic) 1 Cap Cap, 1 CAP PO DAILY, (Reported) Potassium Chloride (K-Tab) 20 Meq Tab, 40 MEQ PO DAILY Warfarin Sod (Coumadin) 7.5 Mg Tab, 7.5 MG PO QHS, (Reported) Scheduled PRN Albuterol Sulfate (Albuterol Sulfate) 1.25 Mg/3 Ml Neb, 1.25 MG INH Q4HP PRN for SHORTNESS OF BREATH, (Reported) Ibuprofen (Advil) 200 Mg Cap, 400 MG PO QID PRN for PAIN, (Reported) Oxybutynin Chloride (Oxybutynin Chloride) 5 Mg Tab, 5 MG PO Q8H PRN for BLADDER SPASM Oxycodone/Acetaminophen (Oxycodone/Acetaminophen 5-325 mg) 1 Tab Tab, 1 TAB PO Q4H PRN for PAIN, (Reported) Ranitidine HCl (Ranitidine HCl) 75 Mg Tab, 1 TAB PO DAILY PRN for HEARTBURN, ( Reported) Allergies Coded Allergies: No Known Allergies (Unverified , 10/23/16) FANI JONES MD Dec 08, 2016 17:27
--- NOTE | 2016-12-11 14:55 | REP ---
BILATERAL RENAL ULTRASOUND: 12/02/2016. Clinical history: Pyelonephritis. Status post stent placement. Comparison: CT abdomen pelvis 11/29/2016. Findings: Sonographic evaluation shows the right kidney 12.2 x 6.2 x 4.8 cm. The left kidney is 12.2 x 4.9 x 5.5 cm. Cortical echogenicity and thickness is normal for both kidneys. The right kidney is upper pole cyst in the cortex 1.7 cm. Lower pole stone is seen in that same kidney at 13 mm diameter. No hydronephrosis or hydroureter evident. Ureteral stent evident in the renal pelvis. The left kidney showed no hydronephrosis or hydroureter is also a stent noted in the renal pelvis. No definite stone, cyst or mass on the left. Bladder was empty and could not be evaluated. Impression: 1. No hydronephrosis or hydroureter. There is a lower pole stone on the right kidney, 1.3 cm. An upper pole 1.8 cm cyst on the right side. Both kidneys have stents. Normal cortical thickness and echogenicity and normal renal size. Signed by Miki Ellis MD 12/03/2016 08:42 A
--- NOTE | 2017-01-05 23:24 | IPNPDOC ---
Text Note Date of Service The patient was seen on 12/02/16. NOTE Event Note: 12/02/16 I was called by nurse on 5 Redd about patient to come see the patient ~1 AM. It was reported to me that the vitals at the time were RR 36-38, Pulse 135, rectal temperature was 101.3 rectal. She was desaturating at 83% on room air and satting 85% with 2 liters of oxygen. On the monitor, her RR was 42. She has had a hx of 6 PE's. Nurse reported that patient was SOB, but an hour before patient was not SOB. She denied chest pain but admitted to SOB when I had seen her. On physical exam, patient's heart rate was in fact tachycardic. Heart was regular rhythm with no murmurs appreciated on cardiac exam. Her anterior lung shi offered a limited lung exam and sounded clear to auscultation. Her abdomen had some mild suprapubic tenderness to palpation. She was diaphoretic and very warm to touch, however she felt very chilly. We had introduced a fan and cooling treatments. I had instructed for a breathing treatment to be administered, for patient to be given standard release tylenol 650 mg PO and to be given q6h PRN pain/fever, to obtain a new set of vital signs, and an ABG to be performed. Patient's oxygen saturation improved over time and her temperature was controlled but was spiking up intermittently overnight. She remained stable throughout the night. VS,Fishbone, I+O VS, Fishbone, I+O Laboratory Tests 12/01/16 23:04 Red Blood Count 4.07, Mean Corpuscular Volume 86.6, Mean Corpuscular Hemoglobin 29.6, Mean Corpuscular Hemoglobin Concent 34.2, Red Cell Distribution Width 13.4 , Calcium Level 8.6 12/02/16 06:36 Red Blood Count 4.10, Mean Corpuscular Volume 87.9, Mean Corpuscular Hemoglobin 30.0, Mean Corpuscular Hemoglobin Concent 34.1, Red Cell Distribution Width 13.3 , Calcium Level 8.8, Neutrophils (%) (Auto) 67.4 H, Lymphocytes (%) (Auto) 20.3 L, Monocytes (%) (Auto) 7.1 H, Eosinophils (%) (Auto) 1.1, Basophils (%) (Auto) 0.5, Neutrophils # (Auto) 7.1, Lymphocytes # (Auto) 2.2, Monocytes # (Auto) 0.8 , Eosinophils # (Auto) 0.1, Basophils # (Auto) 0.1 Vital Signs Date Time Temp Pulse Resp B/P (MAP) Pulse Ox O2 Delivery O2 Flow Rate FiO2 12/02/16 10:00 98.0 69 20 101/67 (78) 99 Nasal Cannula 2.0 I&O- Last 24 Hours up to 6 AM 12/02/16 05:59 Intake Total 2390 ml Output Total 1800 ml Balance 590 ml GME ATTESTATION GME ATTESTATION My preceptor for this patient encounter was Dr. Canelo Forbes, and was physically present in the building during the encounter and was fully available. As needed, all aspects of the patient interview, examination, medical decision making process, and medical care plan development were reviewed and approved by the preceptor. Preceptor is aware and concurs with the plan as stated in the body of this note and will attest to such by his/her cosignature. MAXINE CHAMBERS OGME-1 Dec 02, 2016 11:00
== END 2016-12-08 13:35 | disposition home or self-care (01) | DRG 856 ==
LOC: M ED 15:31 → M ED INP 19:33 → M MS5PR 20:35 → M PED 12-04 20:17
PROVIDERS: ADMIT Urology; ATTEND Internal Medicine
PROC: 0TC08ZZ Extirpation of Matter from Right Kidney, Via Natural or Artificial Opening Endoscopic (ICD-10-PCS; principal; 2016-11-27)
PROC: 0TC18ZZ Extirpation of Matter from Left Kidney, Via Natural or Artificial Opening Endoscopic (ICD-10-PCS; 2016-11-27)
PROC: 0T778DZ Dilation of Left Ureter with Intraluminal Device, Via Natural or Artificial Opening Endoscopic (ICD-10-PCS; 2016-11-27)
DX: T81.4XXA Infection following a procedure, initial encounter (principal); A41.9 Sepsis, unspecified organism; J69.0 Pneumonitis due to inhalation of food and vomit; N10 Acute pyelonephritis; N17.9 Acute kidney failure, unspecified; T81.72XA Complication of vein following a procedure, not elsewhere classified, initial encounter; L03.114 Cellulitis of left upper limb; J98.11 Atelectasis; N20.0 Calculus of kidney; R19.7 Diarrhea, unspecified; E87.6 Hypokalemia; M79.7 Fibromyalgia; R31.9 Hematuria, unspecified; I80.8 Phlebitis and thrombophlebitis of other sites; Z79.899 Other long term (current) drug therapy; Z79.01 Long term (current) use of anticoagulants; R59.9 Enlarged lymph nodes, unspecified; N28.1 Cyst of kidney, acquired

== ENCOUNTER → 2016-12-26 | Outpatient (REF) | payer MEDICARE, OTHER ==
[~2016-12-26] MED LIST changes: +ADVI200C5 PO; +CEPH500C PO; +K-TA1TAB PO; +OXYB5TAB10 PO; +OXYC1TAB23 PO; +RANI75TA9 PO; +RISATAB3 PO
[2016-12-26 17:21] LABS: INR 1.43; MEAN CORPUSCULAR HEMOGLOBIN 29.5 pg (27.0-33.0); MEAN CORPUSCULAR HGB CONC 33.2 g/dl (32.0-36.5); MEAN CORPUSCULAR VOLUME 88.6 fl (80.0-96.0); RED CELL DISTRIBUTION WIDTH 13.6 % (11.5-14.5); WHITE BLOOD COUNT 10.6 K/mm3 (4.0-10.0)
[2016-12-26 17:43] LABS: ALBUMIN 4.1 GM/DL (3.2-5.2); ALBUMIN/GLOBULIN RATIO 1.08 (1.00-1.93); ALKALINE PHOSPHATASE 116 U/L (45-117); ALT/SGPT 18 U/L (12-78); ANION GAP 12 MEQ/L (8-16); AST/SGOT 21 U/L (15-37); BILIRUBIN,TOTAL 0.4 MG/DL (0.2-1.0); BLOOD UREA NITROGEN 13 MG/DL (7-18); CALCIUM LEVEL 9.3 MG/DL (8.5-10.1); CARBON DIOXIDE LEVEL 23 MEQ/L (21-32); CHLORIDE LEVEL 107 MEQ/L (98-107); CREATININE FOR GFR 0.97 MG/DL (0.55-1.02); FREE T4 0.96 NG/DL (0.76-1.46); GLOMERULAR FILTRATION RATE > 60.0 (>51); GLUCOSE, FASTING 108 MG/DL (70-105); POTASSIUM SERUM 3.9 MEQ/L (3.5-5.1); SODIUM LEVEL 142 MEQ/L (136-145); TOTAL PROTEIN 7.9 GM/DL (6.4-8.2)
== END ==
LOC: M SFHCLERA 13:38
PROVIDERS: ATTEND Family Medicine
DX: Z51.81 Encounter for therapeutic drug level monitoring (principal); Z79.01 Long term (current) use of anticoagulants; R91.1 Solitary pulmonary nodule; E03.9 Hypothyroidism, unspecified
CPT/HCPCS: 80053; 84439; 84443; 85027; 85610; G0463

== ENCOUNTER → 2017-03-27 | Outpatient (REF) ==
--- NOTE | 2017-03-27 14:53 | REP ---
Clinical: Pain and disability. Technique: AP, lateral, and coned-down views of the lumbosacral spine. Findings: Alignment and lordosis maintained. Vertebral bodies are intact and no acute fracture / compression injury or subluxation is appreciated. Mild to moderate multilevel degenerative changes include endplate sclerosis and minimal disc space narrowing predominantly at the L5-S1 level. Impression: Mild to moderate degenerative changes. Signed by Blas Lynn MD 03/27/2017 02:44 P
== END ==
LOC: M SMT 14:01
PROVIDERS: ATTEND Internal Medicine
DX: M54.5 Low back pain (principal)

== ENCOUNTER 2018-04-24 09:44 | Day surgery (SDC) | payer OTHER ==
[~2018-04-24] VITALS: Ht 157.5 cm; Wt 78.5 kg
[~2018-04-24 09:44] MED LIST changes: +COUM6TAB PO; -GABA-283 PO; +GABA-845 PO; +LR 1,000 ML IV ONE; +METF500T13 PO; +OMEP20TA PO; +PROC10TA4 PO; +RANI75TA15 PO; -RANI75TA9 PO; +WARF-21 PO; -ZOFR20TA SL; +ZOFR4TAB16 SL; +dexameTHASONE 4 MG/ML 1ML VIAL (J1100) IV ONE
[2018-04-24] MEDS ORDERED: ROCURONIUM BROMIDE 50 MG/5 ML VIAL As Ordered ONE (09:45)
[2018-04-24] MEDS ORDERED: ONDANSETRON 4MG/2ML VIAL (J2405) As Ordered ONE (09:45)
[2018-04-24] MEDS ORDERED: dexameTHASONE 4 MG/ML 1ML VIAL (J1100) As Ordered ONE (09:45)
[2018-04-24] MEDS ORDERED: PROPOFOL 200 MG/20 ML VIAL As Ordered ONE (09:45)
[2018-04-24] MEDS ORDERED: LIDOCAINE 2% INJ 100 MG/5 ML SDV (FOR ANES.) As Ordered ONE (09:45)
[2018-04-24] MEDS ORDERED: MIDAZOLAM INJ 2 MG/2 ML VIAL (J2250) As Ordered ONE (09:48)
[2018-04-24] MEDS ORDERED: fentaNYL 250 MCG/5 ML INJECTION (J3010) As Ordered ONE (09:48)
[2018-04-24] MEDS ORDERED: LOVE1INJ SC (10:25)
[2018-04-24 10:38] LABS: INR 0.96; PROTHROMBIN TIME 12.9 SECONDS (12.1-14.4)
[2018-04-24] MEDS ORDERED: LIDOCAINE W/EPINEPHRINE 1% 20ML VIAL As Ordered ONE (11:09)
[2018-04-24] MEDS ORDERED: OXYMETAZOLINE NASAL SPRAY (AFRIN) As Ordered ONE (11:09)
[2018-04-24] MEDS ORDERED: METHYLENE BLUE 0.5% (5MG/ML) 10 ML AMP (PROVAYBLUE)(Q9968 PER 1MG) As Ordered ONE (11:09)
[2018-04-24] MEDS ORDERED: SUGAMMADEX SODIUM 500 MG/5 ML VIAL (BRIDION) As Ordered ONE (12:14)
[2018-04-24] MEDS ORDERED: PERCOCET 5MG/325MG TAB As Ordered ONE (13:03)
[2018-04-24] MEDS: PERCOCET 5MG/325MG TAB PO PRN ×2 (13:04→13:34)
[2018-04-24] MEDS ORDERED: fentaNYL 100 MCG/2 ML INJECTION (J3010) IV PRN (13:15)
[2018-04-24] MEDS ORDERED: ONDANSETRON 4MG/2ML VIAL (J2405) IV PRN (13:15)
[2018-04-24] MEDS ORDERED: LR 1,000 ML IV SCH ×2 (13:15)
[2018-04-24] MEDS ORDERED: METOCLOPRAMIDE INJ 10MG/2ML VIAL (J2765) IV PRN (13:15)
--- NOTE | 2018-04-24 14:12 | ECGEPIP ---
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
[2018-04-24 14:55] VITALS: BP 113/57
--- NOTE | 2018-05-09 13:04 | RO ---
DATE OF PROCEDURE: 04/24/2018 PREOPERATIVE DIAGNOSES: Dysphonia, gastroesophageal reflux disease, and leukoplakia of the vocal cords. POSTOPERATIVE DIAGNOSES: Dysphonia, gastroesophageal reflux disease, and leukoplakia of the vocal cords. PROCEDURE PERFORMED: Direct suspension microlaryngoscopy with biopsy of the right and left vocal cords. SURGEON: Sami Osman MD FARM HELPER: ANESTHESIA: General. CLINICAL PREAMBLE: This 58-year-old woman (dictation cut off). She has not responded to medical management. She is a 20 pack-year smoker. Flexible laryngoscopy revealed evidence of leukoplakia in the midportion of the left and the right vocal cords. Management options including direct suspension microlaryngoscopy with biopsy of the vocal cords have been discussed. (dictation cut off). OPERATING ROOM (OR) NARRATION. Patient was identified in preoperative holding and brought to the operating room in stable condition. In supine position on the operating table, patient received general anesthesia followed by orotracheal intubation without incision. Patient prepped and draped in the usual fashion for the procedure. Bimanual palpation of the oral tongue, base of tongue, buccal mucosa, lateral, posterior pharyngeal wall showed no evidence of discrete mass lesion. The alveolus was protected. Using a Dedo-Pilling laryngoscope, inspection of the mucosa of the oral cavity, oropharynx, hypopharynx, supraglottis was carried out. There was no evidence of gross mucosal lesion. No mass lesion. The Dedo-Pilling laryngoscope was suspended on the Alexandre stand to visualize. Both vocal cords were found to be mildly erythematous and edematous, consistent with polypoid degeneration. Biopsy then performed from the midportion of the left and right vocal cord. Hemostasis was achieved by placing cottonoid pledgets over the vocal cords. At the end of procedure, sponge and instrument counts were correct. No complication was encountered. Estimated blood loss was less than 1 mL. General anesthesia was reversed, and patient was extubated and brought to recovery room in stable condition.
== END 2018-04-24 15:15 | disposition home or self-care (01) ==
LOC: M SDC 09:44
PROVIDERS: ATTEND Otolaryngology
DX: R49.0 Dysphonia (principal); K21.9 Gastro-esophageal reflux disease without esophagitis; J38.3 Other diseases of vocal cords; I10 Essential (primary) hypertension; M79.7 Fibromyalgia; J45.909 Unspecified asthma, uncomplicated; F32.9 Major depressive disorder, single episode, unspecified; E78.5 Hyperlipidemia, unspecified; F41.9 Anxiety disorder, unspecified; N20.0 Calculus of kidney; J44.9 Chronic obstructive pulmonary disease, unspecified; E11.9 Type 2 diabetes mellitus without complications; M54.9 Dorsalgia, unspecified; G89.4 Chronic pain syndrome; J30.89 Other allergic rhinitis; F17.210 Nicotine dependence, cigarettes, uncomplicated; Z79.899 Other long term (current) drug therapy; Z79.01 Long term (current) use of anticoagulants; Z79.84 Long term (current) use of oral hypoglycemic drugs; Z86.711 Personal history of pulmonary embolism; Z86.718 Personal history of other venous thrombosis and embolism; Z90.710 Acquired absence of both cervix and uterus
CPT/HCPCS: 31535; 36415; 85610; 88305; 93005; J1100; J2250; J2405; J3010; Q9968

== ENCOUNTER 2023-11-06 16:02 | Emergency (ER) | payer OTHER ==
[~2023-11-06] VITALS: Ht 157.5 cm; Wt 87.6 kg
[2023-11-06 16:02] VITALS: BP 136/79; TEMP 98.3; O2SAT 95
[~2023-11-06 16:02] MED LIST changes: -COUM6TAB PO; +COUM6TAB10 PO; -COUM7.5T PO; +COUM7.5T6 PO; +GABA-284 PO; -GABA-845 PO; +LOVE1INJ SC; -LR 1,000 ML IV ONE; +OMEP-358 PO; -OMEP20TA PO; -OXYB5TAB10 PO; +OXYB5TAB14 PO; -PROC10TA4 PO; +PROC10TA5 PO; -dexameTHASONE 4 MG/ML 1ML VIAL (J1100) IV ONE
[2023-11-06] MEDS ORDERED: IBUP200T46 PO (16:10)
[2023-11-06] MEDS ORDERED: FLUC150T9 PO (17:38)
[2023-11-06] MEDS ORDERED: NITR100C3 PO (17:38)
== END 2023-11-06 17:46 | disposition home or self-care (01) ==
LOC: M ED 16:02
DX: N39.0 Urinary tract infection, site not specified (principal); K21.9 Gastro-esophageal reflux disease without esophagitis; Z79.1 Long term (current) use of non-steroidal anti-inflammatories (NSAID); Z79.899 Other long term (current) drug therapy

== ENCOUNTER 2023-11-10 13:22 | Inpatient (IN) | payer OTHER ==
[~2023-11-10] VITALS: Ht 157.5 cm; Wt 83.8 kg
[~2023-11-10 13:22] MED LIST changes: +FLUC150T9 PO; +IBUP200T46 PO; +NITR100C3 PO
[2023-11-10 14:15] LABS: BASO # 0.1 10^3/uL (0.0-0.2); BASO % 0.6 % (0.0-1.0); EOS # 0.3 10^3/uL (0.0-0.5); EOS % 2.1 % (0.0-3.0); HEMATOCRIT 43.3 % (36.0-47.0); HEMOGLOBIN 14.1 g/dl (12.0-15.5); LYMPH # 2.7 10^3/uL (1.5-5.0); MEAN CORPUSCULAR HEMOGLOBIN 28.9 pg (27.0-33.0); MEAN CORPUSCULAR HGB CONC 32.6 g/dl (32.0-36.5); MEAN CORPUSCULAR VOLUME 88.7 fl (80.0-96.0); MONO # 0.9 10^3/uL (0.0-0.8); NEUTROPHILS # 9.3 10^3/uL (1.5-8.5); NEUTROPHILS % 70.1 % (36.0-66.0); PLATELET COUNT, AUTOMATED 342 10^3/uL (150-450); RED BLOOD COUNT 4.88 10^6/uL (4.00-5.40); WHITE BLOOD COUNT 13.2 10^3/uL (4.0-10.0)
[2023-11-10] MEDS: ACETAMINOPHEN *IV* 1,000 MG in IV 1 EA IV ONE (14:41)
[2023-11-10 14:42] LABS: LIPASE 44 U/L (12-53)
[2023-11-10 14:44] LABS: ALBUMIN 4.3 G/DL (3.2-5.2); ALKALINE PHOSPHATASE 123 U/L (46-116); ALT/SGPT 16 U/L (7.0-40); AST/SGOT 16 U/L (<34); BILIRUBIN,DIRECT 0.1 MG/DL (<0.4); BILIRUBIN,TOTAL 0.4 MG/DL (0.3-1.2); TOTAL PROTEIN 7.9 G/DL (5.7-8.2)
[2023-11-10] MEDS: FLUCONAZOLE 50MG TABLET PO ONE (15:28)
[2023-11-10] MEDS: NS 1,000 ML IV ONE (15:30)
[2023-11-10] MEDS: KETOROLAC 30 MG/ML 1ML VIAL IV ONE (15:30)
[2023-11-10] MEDS: cefTRIAXone SOD 1 GM in D5W MINI-BAG PLUS 50 ML IV ONE (16:58)
[2023-11-10] MEDS: MORPHINE 4 MG/ML 1ML VIAL IV ONE (16:59)
[2023-11-10] MEDS: diphenhydrAMINE 50MG/ML VIAL IV ONE (17:25)
[2023-11-10] MEDS ORDERED: MOM 30ML SUSPENSION UDC PO PRN (17:30)
[2023-11-10] MEDS ORDERED: MAALOX 30 ML SUSP *UDC PO PRN (17:30)
[2023-11-10 18:06] LABS: PROCALCITONIN <0.04 ng/ml
[2023-11-10 18:12] LABS: C REACTIVE PROTEIN QUANTITATIV < 0.40 MG/DL (<1.0)
[2023-11-10] MEDS: LevoFLOXacin IV 750 MG in IV 1 EA IV SCH (18:18)
[2023-11-10] MEDS: NS 1,000 ML IV SCH (18:24)
[2023-11-10] MEDS ORDERED: NITR100C2 PO (18:29)
[2023-11-10] MEDS ORDERED: HOME MED LIST COMPLETE! XX SCH (18:30)
[2023-11-10] MEDS: PHENAZOPYRIDINE 100 MG TAB PO SCH (20:53)
[2023-11-10] MEDS: DOCUSATE SODIUM 100MG CAPSULE PO SCH (20:53)
[2023-11-10] MEDS: oxyBUTYnin 5 MG TAB PO SCH (20:53)
[2023-11-10] MEDS: HEPARIN SOD (PORCINE) 5000UNITS/ML 1ML VIAL/SYRINGE SC SCH (20:54)
[2023-11-10] MEDS ORDERED: ACETAMINOPHEN TAB 650MG DOSE (2X325MG) PO PRN (21:00)
[2023-11-10] MEDS: MORPHINE 2 MG/ML 1ML VIAL IV PRN (21:12)
[2023-11-11 08:41] LABS: BASO # 0.1 10^3/uL (0.0-0.2); BASO % 0.7 % (0.0-1.0); EOS # 0.4 10^3/uL (0.0-0.5); EOS % 4.1 % (0.0-3.0); HEMATOCRIT 38.4 % (36.0-47.0); HEMOGLOBIN 12.2 g/dl (12.0-15.5); LYMPH # 3.1 10^3/uL (1.5-5.0); LYMPH % 28.7 % (24.0-44.0); MEAN CORPUSCULAR HEMOGLOBIN 29.1 pg (27.0-33.0); MEAN CORPUSCULAR HGB CONC 31.8 g/dl (32.0-36.5); MEAN CORPUSCULAR VOLUME 91.6 fl (80.0-96.0); MONO # 1.1 10^3/uL (0.0-0.8); MONO % 10.2 % (2.0-8.0); NEUTROPHILS # 5.9 10^3/uL (1.5-8.5); NEUTROPHILS % 55.7 % (36.0-66.0); PLATELET COUNT, AUTOMATED 264 10^3/uL (150-450); RED BLOOD COUNT 4.19 10^6/uL (4.00-5.40); WHITE BLOOD COUNT 10.6 10^3/uL (4.0-10.0)
[2023-11-11] MEDS ORDERED: DULoxetine 20MG CAP (CYMBALTA) PO SCH (09:00)
[2023-11-11] MEDS: GABAPENTIN 100 MG CAP PO SCH (10:53)
[2023-11-11 11:54] LABS: C REACTIVE PROTEIN QUANTITATIV < 0.40 MG/DL (<1.0)
[2023-11-11 11:56] LABS: BLOOD UREA NITROGEN 21 MG/DL (9-23); CALCIUM LEVEL 8.8 MG/DL (8.3-10.6); CARBON DIOXIDE LEVEL 23 MMOL/L (20-31); CHLORIDE LEVEL 113 MMOL/L (98-107); CREATININE FOR GFR 1.05 MG/DL (0.55-1.30); GLOMERULAR FILTRATION RATE 56.7 (>45); GLUCOSE, FASTING 116 MG/DL (74-106); MAGNESIUM LEVEL 1.7 MG/DL (1.8-2.4); POTASSIUM SERUM 4.5 MMOL/L (3.5-5.1); SODIUM LEVEL 141 MMOL/L (136-145)
[2023-11-11 12:11] VITALS: BP 142/66; TEMP 97.2; O2SAT 100
[2023-11-11 16:00] VITALS: BP 107/71; TEMP 97.7; O2SAT 96
[2023-11-11 16:50] VITALS: BP 136/72
[2023-11-11] MEDS: MAG SULF 1GM/100ML (MAG RUN) 1 GM in IV 1 EA IV ONE (16:51)
[2023-11-11] MEDS: LevoFLOXacin 750 MG TABLET PO SCH (18:14)
[2023-11-11 19:26] VITALS: BP 128/59; TEMP 98.1; O2SAT 100
[2023-11-11] MEDS: AMITRIPTYLINE 10MG TABLET PO SCH (21:12)
[2023-11-11 23:20] VITALS: BP 125/60; TEMP 97.5; O2SAT 97
[2023-11-12 03:10] VITALS: BP 102/50; TEMP 97.2; O2SAT 96
[2023-11-12 05:59] LABS: BASO # 0.1 10^3/uL (0.0-0.2); BASO % 0.6 % (0.0-1.0); EOS # 0.5 10^3/uL (0.0-0.5); EOS % 5.5 % (0.0-3.0); HEMATOCRIT 34.3 % (36.0-47.0); HEMOGLOBIN 11.1 g/dl (12.0-15.5); LYMPH # 3.2 10^3/uL (1.5-5.0); LYMPH % 37.7 % (24.0-44.0); MEAN CORPUSCULAR HEMOGLOBIN 29.4 pg (27.0-33.0); MEAN CORPUSCULAR HGB CONC 32.4 g/dl (32.0-36.5); MEAN CORPUSCULAR VOLUME 90.7 fl (80.0-96.0); MONO % 11.6 % (2.0-8.0); NEUTROPHILS # 3.8 10^3/uL (1.5-8.5); NEUTROPHILS % 44.2 % (36.0-66.0); PLATELET COUNT, AUTOMATED 253 10^3/uL (150-450); RED BLOOD COUNT 3.78 10^6/uL (4.00-5.40); WHITE BLOOD COUNT 8.5 10^3/uL (4.0-10.0)
[2023-11-12 06:24] LABS: C REACTIVE PROTEIN QUANTITATIV < 0.40 MG/DL (<1.0)
[2023-11-12 06:25] LABS: BLOOD UREA NITROGEN 17 MG/DL (9-23); CALCIUM LEVEL 8.7 MG/DL (8.3-10.6); CARBON DIOXIDE LEVEL 24 MMOL/L (20-31); CHLORIDE LEVEL 112 MMOL/L (98-107); CREATININE FOR GFR 0.91 MG/DL (0.55-1.30); GLOMERULAR FILTRATION RATE > 60.0 (>45); GLUCOSE, FASTING 105 MG/DL (74-106); MAGNESIUM LEVEL 1.8 MG/DL (1.8-2.4); POTASSIUM SERUM 4.3 MMOL/L (3.5-5.1); SODIUM LEVEL 140 MMOL/L (136-145)
[2023-11-12 07:35] VITALS: BP 129/61; TEMP 96.5; O2SAT 97
[2023-11-12] MEDS ORDERED: AMIT25TA19 PO (08:32)
[2023-11-12] MEDS ORDERED: GABA-1171 PO (08:32)
[2023-11-12] MEDS ORDERED: OXYC1TAB23 PO (08:32)
[2023-11-12] MEDS ORDERED: OXYB5TAB14 PO (08:32)
[2023-11-12] MEDS ORDERED: PHEN1TAB73 PO (08:32)
[2023-11-12] MEDS ORDERED: LEVO1TAB40 PO (08:32)
== END 2023-11-12 13:05 | disposition home or self-care (01) | DRG 690 ==
LOC: M ED 13:22 → M ED INP 17:29 → M PCU 11-11 11:39
PROVIDERS: ADMIT Internal Medicine; ATTEND Internal Medicine
DX: N13.6 Pyonephrosis (principal); G90.50 Complex regional pain syndrome I, unspecified; N39.0 Urinary tract infection, site not specified; J44.9 Chronic obstructive pulmonary disease, unspecified; M79.7 Fibromyalgia; Z86.711 Personal history of pulmonary embolism; M41.9 Scoliosis, unspecified; Z88.8 Allergy status to other drugs, medicaments and biological substances; Z79.899 Other long term (current) drug therapy

== ENCOUNTER → 2024-01-01 | Outpatient (REF) | payer MEDICARE, OTHER ==
[~2024-01-01] MED LIST changes: +AMIT25TA19 PO; +GABA-1171 PO; +LEVO1TAB40 PO; +NITR100C2 PO; +PHEN1TAB73 PO
== END ==
LOC: M SFHCCAPE 16:38
PROVIDERS: ATTEND Physician Assistant Medical
DX: R30.0 Dysuria (principal)

== ENCOUNTER → 2024-01-15 | Outpatient (CLI) | payer OTHER ==
[2024-01-15 18:57] LABS: APPEARANCE, URINE HAZY (CLEAR); BACTERIA, URINE AUTO 1+ (NEGATIVE); BILIRUBIN, URINE AUTO NEGATIVE (NEGATIVE); BLOOD, URINE BLOOD 2+ (NEGATIVE); COLOR, URINE YELLOW (YELLOW); GLUCOSE, URINE (UA) AUTO NEGATIVE (NEGATIVE); KETONE, URINE AUTO NEGATIVE (NEGATIVE); LEUKOCYTE ESTERASE, URINE AUTO 3+ (NEGATIVE); NITRITE, URINE AUTO NEGATIVE (NEGATIVE); PROTEIN, URINE AUTO 1+ mg/dL (NEGATIVE); RBC, URINE AUTO 25 /HPF (0-3); SQUAMOUS EPITHELIAL CELL UR AU 1 /HPF (0-6); UROBILINOGEN, URINE AUTO 0.2 mg/dL (0.0-2.0); WBC, URINE AUTO 137 /HPF (0-3)
[2024-01-15 19:01] LABS: BASO # 0.1 10^3/uL (0.0-0.2); BASO % 0.7 % (0.0-1.0); EOS # 0.1 10^3/uL (0.0-0.5); EOS % 0.6 % (0.0-3.0); HEMATOCRIT 44.3 % (36.0-47.0); HEMOGLOBIN 14.3 g/dl (12.0-15.5); LYMPH % 20.7 % (24.0-44.0); MEAN CORPUSCULAR HEMOGLOBIN 28.8 pg (27.0-33.0); MEAN CORPUSCULAR HGB CONC 32.3 g/dl (32.0-36.5); MEAN CORPUSCULAR VOLUME 89.3 fl (80.0-96.0); MONO # 0.8 10^3/uL (0.0-0.8); MONO % 5.7 % (2.0-8.0); NEUTROPHILS # 10.3 10^3/uL (1.5-8.5); NEUTROPHILS % 71.9 % (36.0-66.0); PLATELET COUNT, AUTOMATED 362 10^3/uL (150-450); RED BLOOD COUNT 4.96 10^6/uL (4.00-5.40); WHITE BLOOD COUNT 14.3 10^3/uL (4.0-10.0)
[2024-01-15 19:27] LABS: CREATININE, URINE 63.3 MG/DL; MAU/CREAT RATIO 167.4 MCG/MG (0.0-30.0)
[2024-01-15 19:28] LABS: ALBUMIN 4.3 G/DL (3.2-5.2); ALKALINE PHOSPHATASE 185 U/L (46-116); ALT/SGPT 14 U/L (7.0-40); AST/SGOT 11 U/L (<34); BILIRUBIN,TOTAL 0.4 MG/DL (0.3-1.2); BLOOD UREA NITROGEN 12 MG/DL (9-23); CALCIUM LEVEL 9.3 MG/DL (8.3-10.6); CARBON DIOXIDE LEVEL 26 MMOL/L (20-31); CHLORIDE LEVEL 103 MMOL/L (98-107); CHOLESTEROL LEVEL 176 MG/DL (<200); CHOLESTEROL RISK RATIO 3.85 (<5); CREATININE FOR GFR 0.75 MG/DL (0.55-1.30); GLOMERULAR FILTRATION RATE > 60.0 (>45); GLUCOSE, FASTING 130 MG/DL (74-106); HDL CHOLESTEROL 45.7 MG/DL (>40); LDL CHOLESTEROL 83.1 MG/DL (<100); NON-HDL-C 130.3 MG/DL; POTASSIUM SERUM 4.3 MMOL/L (3.5-5.1); SODIUM LEVEL 135 MMOL/L (136-145); THYROID STIMULATING HORMONE 1.485 uIU/ML (0.55-4.78); TOTAL PROTEIN 8.1 G/DL (5.7-8.2); TRIGLYCERIDES LEVEL 236 MG/DL (<150)
[2024-01-15 19:30] LABS: FOLATE 14.1 NG/ML (>5.4); FREE T4 1.29 NG/DL (0.89-1.76); VITAMIN B12 LEVEL 326 PG/ML (211-911)
[2024-01-15 19:36] LABS: HEMOGLOBIN A1c 6.2 % (4.0-6.0)
== END ==
LOC: M LAB 17:26
PROVIDERS: ATTEND Physician Assistant Medical
DX: Z13.220 Encounter for screening for lipoid disorders (principal); E11.69 Type 2 diabetes mellitus with other specified complication; E03.9 Hypothyroidism, unspecified; N20.0 Calculus of kidney; F41.9 Anxiety disorder, unspecified; D64.9 Anemia, unspecified; R30.0 Dysuria

== ENCOUNTER → 2024-01-29 | Outpatient (CLI) | payer OTHER ==
[~2024-01-29] MED LIST changes: +IBUP-354 PO
[2024-01-29 15:51] LABS: APPEARANCE, URINE CLOUDY (CLEAR); BACTERIA, URINE AUTO NEGATIVE (NEGATIVE); BILIRUBIN, URINE AUTO NEGATIVE (NEGATIVE); BLOOD, URINE BLOOD 3+ (NEGATIVE); COLOR, URINE AMBER (YELLOW); GLUCOSE, URINE (UA) AUTO NEGATIVE (NEGATIVE); KETONE, URINE AUTO NEGATIVE (NEGATIVE); LEUKOCYTE ESTERASE, URINE AUTO 3+ (NEGATIVE); MUCUS, URINE SMALL (NEGATIVE); NITRITE, URINE AUTO NEGATIVE (NEGATIVE); PROTEIN, URINE AUTO 2+ mg/dL (NEGATIVE); RBC, URINE AUTO TNTC /HPF (0-3); SPECIFIC GRAVITY URINE AUTO 1.015 (1.002-1.035); SQUAMOUS EPITHELIAL CELL UR AU 1 /HPF (0-6); UROBILINOGEN, URINE AUTO 0.2 mg/dL (0.0-2.0); WBC, URINE AUTO TNTC /HPF (0-3)
== END ==
LOC: M LAB 15:04
PROVIDERS: ATTEND Urology
DX: N20.0 Calculus of kidney (principal)

== ENCOUNTER → 2024-01-29 | Outpatient (CLI) | payer OTHER | LOC: M RAD 15:09 | PROVIDERS: ATTEND Physician Assistant | DX: Z01.818 Encounter for other preprocedural examination (principal); N20.0 Calculus of kidney ==

== ENCOUNTER 2024-02-04 08:56 | Day surgery (SDC) | payer OTHER ==
[~2024-02-04] VITALS: Ht 157.5 cm; Wt 77.2 kg
[2024-02-04] MEDS ORDERED: LR 1,000 ML IV SCH ×2 (09:20→12:00)
[2024-02-04] MEDS ORDERED: ONDANSETRON 4MG 2ML VIAL As Ordered ONE (10:06)
[2024-02-04] MEDS ORDERED: MIDAZOLAM INJ 2MG/2ML VIAL As Ordered ONE (10:06)
[2024-02-04] MEDS ORDERED: fentaNYL 100 MCG/2 ML INJECTION As Ordered ONE (10:06)
[2024-02-04] MEDS ORDERED: LIDOCAINE 2% 100MG/5ML SDV (FOR ANES.) As Ordered ONE (10:06)
[2024-02-04] MEDS ORDERED: propofoL 200 MG/20 ML VIAL As Ordered ONE (10:06)
[2024-02-04] MEDS: ceFAZolin SOD 2 GM in IV 1 EA IV ONE (10:50)
[2024-02-04] MEDS ORDERED: ACETAMINOPHEN 1000MG 100ML IV BAG As Ordered ONE (11:19)
[2024-02-04] MEDS: ISOVUE-300 61% 100ML VIAL As Ordered ONE (11:49)
[2024-02-04] MEDS: oxyCODONE 5MG TAB PO PRN (12:13)
[2024-02-04] MEDS: HYDROMORPHONE HCL 0.5 MG/ 0.5 ML SYRINGE IV PRN (12:14)
[2024-02-04] MEDS: ONDANSETRON 4MG 2ML VIAL IV PRN (12:14)
[2024-02-04] MEDS: MEPERIDINE 25 MG/ML 1ML VIAL IV PRN (12:32)
[2024-02-04] MEDS ORDERED: OXYC1TAB23 PO (12:56)
[2024-02-04] MEDS ORDERED: CEPH500C PO (12:56)
[2024-02-04] MEDS ORDERED: OXYB5TAB14 PO (12:56)
[2024-02-04] MEDS: fentaNYL 100 MCG/2 ML INJECTION IV PRN (13:00)
[2024-02-04] MEDS ORDERED: oxyBUTYnin 5 MG TAB PO PRN (13:10)
[2024-02-04] MEDS ORDERED: PERCOCET 5MG/325MG TAB PO PRN (13:10)
[2024-02-04] MEDS: oxyBUTYnin 5 MG TAB PO STA (13:18)
[2024-02-04] MEDS: KETOROLAC 30 MG/ML 1ML VIAL IV STA (13:18)
[2024-02-04 14:20] VITALS: BP 145/69; TEMP 97.2; O2SAT 97
== END 2024-02-04 14:27 | disposition home or self-care (01) ==
LOC: M SDC 08:56
PROVIDERS: ATTEND Urology
DX: N20.0 Calculus of kidney (principal); M79.7 Fibromyalgia; D64.9 Anemia, unspecified; G40.909 Epilepsy, unspecified, not intractable, without status epilepticus; G43.909 Migraine, unspecified, not intractable, without status migrainosus; F41.9 Anxiety disorder, unspecified; F32.A Depression, unspecified; J44.9 Chronic obstructive pulmonary disease, unspecified; Z86.711 Personal history of pulmonary embolism; Z79.899 Other long term (current) drug therapy

== ENCOUNTER 2024-02-07 17:19 | Inpatient (IN) | payer OTHER ==
[~2024-02-07] VITALS: Ht 157.5 cm; Wt 77.9 kg
[2024-02-07 18:07] LABS: BASO # 0.1 10^3/uL (0.0-0.2); BASO % 0.5 % (0.0-1.0); EOS % 0.1 % (0.0-3.0); HEMATOCRIT 44.8 % (36.0-47.0); HEMOGLOBIN 14.6 g/dl (12.0-15.5); LYMPH # 1.4 10^3/uL (1.5-5.0); LYMPH % 9.3 % (24.0-44.0); MEAN CORPUSCULAR HEMOGLOBIN 28.8 pg (27.0-33.0); MEAN CORPUSCULAR HGB CONC 32.6 g/dl (32.0-36.5); MEAN CORPUSCULAR VOLUME 88.4 fl (80.0-96.0); MONO # 1.4 10^3/uL (0.0-0.8); MONO % 9.6 % (2.0-8.0); NEUTROPHILS % 79.9 % (36.0-66.0); PLATELET COUNT, AUTOMATED 232 10^3/uL (150-450); RED BLOOD COUNT 5.07 10^6/uL (4.00-5.40)
[2024-02-07] MEDS: NS 500 ML IV ONE (18:09)
[2024-02-07] MEDS: ACETAMINOPHEN 325 MG TAB PO ONE (18:10)
[2024-02-07 18:21] LABS: INR 1.36; PARTIAL THROMBOPLASTIN TIME 32.4 SECONDS (24.8-34.2); PROTHROMBIN TIME 16.3 SECONDS (12.5-14.5)
[2024-02-07] MEDS: LevoFLOXacin IV 750 MG in IV 1 EA IV ONE (18:31)
[2024-02-07] MEDS: ACETAMINOPHEN *IV* 1,000 MG in IV 1 EA IV ONE (18:32)
[2024-02-07] MEDS: MORPHINE 4 MG/ML 1ML VIAL IV ONE (18:32)
[2024-02-07 18:33] LABS: ALBUMIN 3.4 G/DL (3.2-5.2); BILIRUBIN,DIRECT 0.3 MG/DL (<0.4); BILIRUBIN,TOTAL 0.7 MG/DL (0.3-1.2); CALCIUM LEVEL 9.6 MG/DL (8.3-10.6); CREATININE FOR GFR 1.1 MG/DL (0.55-1.30); GLOMERULAR FILTRATION RATE 53.6 (>45); POTASSIUM SERUM 3.8 MMOL/L (3.5-5.1); TOTAL PROTEIN 7.7 G/DL (5.7-8.2)
[2024-02-07] MEDS: ONDANSETRON 4MG 2ML VIAL IV ONE (18:33)
[2024-02-07] MEDS ORDERED: ISOVUE-370 76% 100ML VIAL As Ordered ONE (18:49)
[2024-02-07 20:30] LABS: APPEARANCE, URINE HAZY (CLEAR); BACTERIA, URINE AUTO 1+ (NEGATIVE); BILIRUBIN, URINE AUTO NEGATIVE (NEGATIVE); BLOOD, URINE BLOOD 2+ (NEGATIVE); COLOR, URINE YELLOW (YELLOW); GLUCOSE, URINE (UA) AUTO NEGATIVE (NEGATIVE); KETONE, URINE AUTO NEGATIVE (NEGATIVE); LEUKOCYTE ESTERASE, URINE AUTO 3+ (NEGATIVE); MUCUS, URINE SMALL (NEGATIVE); NITRITE, URINE AUTO NEGATIVE (NEGATIVE); PROTEIN, URINE AUTO 2+ mg/dL (NEGATIVE); RBC, URINE AUTO 101 /HPF (0-3); SPECIFIC GRAVITY URINE AUTO >1.060 (1.002-1.035); SQUAMOUS EPITHELIAL CELL UR AU 11 /HPF (0-6); UROBILINOGEN, URINE AUTO 0.2 mg/dL (0.0-2.0); WBC, URINE AUTO 96 /HPF (0-3)
[2024-02-07] MEDS ORDERED: ACET-897 PO (21:48)
[2024-02-07] MEDS ORDERED: CEPH500C PO (21:48)
[2024-02-07] MEDS ORDERED: IBUP200T46 PO (21:48)
[2024-02-07] MEDS ORDERED: HOME MED LIST COMPLETE! XX SCH (21:55)
[2024-02-07] MEDS: NS 1,000 ML IV ONE (22:31)
[2024-02-07] MEDS: MORPHINE 4 MG/ML 1ML VIAL IV PRN (23:33)
[2024-02-08] MEDS ORDERED: IPRATROPIUM 0.5MG/ALBUTEROL 2.5MG INH SOL UD 3ML (DUONEB) NEB PRN (02:35)
[2024-02-08] MEDS: oxyBUTYnin 5 MG TAB PO PRN (03:26)
[2024-02-08] MEDS: ACETAMINOPHEN 500 MG TAB PO PRN (03:26)
[2024-02-08] MEDS: ACETAMINOPHEN *IV* 1,000 MG in IV 1 EA IV ONE (04:03)
[2024-02-08 06:23] LABS: MEAN CORPUSCULAR HEMOGLOBIN 28.6 pg (27.0-33.0); MEAN CORPUSCULAR VOLUME 86.9 fl (80.0-96.0); PLATELET COUNT, AUTOMATED 182 10^3/uL (150-450); RED BLOOD COUNT 4.05 10^6/uL (4.00-5.40); WHITE BLOOD COUNT 11.9 10^3/uL (4.0-10.0)
[2024-02-08] MEDS: PANTOPRAZOLE 40MG VIAL IV SCH (06:30)
[2024-02-08 06:34] LABS: CALCIUM LEVEL 8.6 MG/DL (8.3-10.6); CREATININE FOR GFR 1.06 MG/DL (0.55-1.30); GLOMERULAR FILTRATION RATE 55.9 (>45); MAGNESIUM LEVEL 1.7 MG/DL (1.8-2.4); POTASSIUM SERUM 3.4 MMOL/L (3.5-5.1)
[2024-02-08 06:36] LABS: PHOSPHORUS LEVEL 2.3 MG/DL (2.4-5.1)
[2024-02-08 06:38] LABS: THYROID STIMULATING HORMONE 1.379 uIU/ML (0.55-4.78)
[2024-02-08 06:39] LABS: FREE THYROXINE INDEX 4.5 % (1.3-4.8); T UPTAKE 56.6 % (22.5-37.0)
[2024-02-08 06:49] LABS: HEMATOCRIT 35.2 % (36.0-47.0); HEMOGLOBIN 11.6 g/dl (12.0-15.5)
[2024-02-08] MEDS: ONDANSETRON 4MG 2ML VIAL IV PRN (08:09)
[2024-02-08] MEDS: MAG SULF 1GM/100ML (MAG RUN) 1 GM in IV 1 EA IV ONE (09:12)
[2024-02-08] MEDS: SENNA 8.6 MG TAB (SENOKOT) PO SCH (09:12)
[2024-02-08] MEDS: ENOXAPARIN 40MG/0.4ML SYRINGE (J1650 PER 10MG) SC SCH (09:13)
[2024-02-08] MEDS: POTASSIUM CHLORIDE 10MEQ SR TABLET PO ONE (09:13)
[2024-02-08] MEDS: MIRALAX *UNIT DOSE* 17GM PACKET PO SCH (09:40)
[2024-02-08 09:43] LABS: HIV 1&2 SCREEN NEGATIVE (NEGATIVE)
[2024-02-08] MEDS: PHENAZOPYRIDINE 100 MG TAB PO SCH (10:15)
[2024-02-08 11:17] LABS: PROCALCITONIN 0.69 ng/ml
[2024-02-08 11:22] LABS: C REACTIVE PROTEIN QUANTITATIV 30.7 MG/DL (<1.0)
[2024-02-08 11:26] LABS: Trichomonas vaginalis (AMP) NOT DETECTED (NEGATIVE)
[2024-02-08 11:49] LABS: GC DNA AMPLIFICATION NEGATIVE (NEGATIVE)
[2024-02-08] MEDS: LACTATED RINGER'S 1000 ML IV ONE (15:15)
[2024-02-08 15:37] VITALS: BP 135/94; TEMP 99.2; O2SAT 93
[2024-02-08] MEDS: metroNIDAZOLE 500 MG in IV 1 EA IV SCH (17:41)
[2024-02-08] MEDS: oxyBUTYnin *DITROPAN XL* 5 MG TABCR PO SCH (17:47)
[2024-02-08 18:55] VITALS: O2SAT 93
[2024-02-08] MEDS: LevoFLOXacin IV 750 MG in IV 1 EA IV SCH (19:44)
[2024-02-08 19:51] VITALS: BP 100/64; TEMP 97.7
[2024-02-08 21:25] VITALS: TEMP 101.5
[2024-02-08 22:30] VITALS: TEMP 102.3
[2024-02-08] MEDS: IBUPROFEN 800 MG TAB PO PRN (22:41)
[2024-02-08 23:52] VITALS: TEMP 100.3
[2024-02-09 04:00] VITALS: BP 118/60; TEMP 97.9; O2SAT 92
[2024-02-09 05:29] LABS: BASO % 0.4 % (0.0-1.0); EOS % 0.4 % (0.0-3.0); HEMATOCRIT 33.3 % (36.0-47.0); HEMOGLOBIN 10.8 g/dl (12.0-15.5); LYMPH # 1.8 10^3/uL (1.5-5.0); LYMPH % 20.4 % (24.0-44.0); MEAN CORPUSCULAR HEMOGLOBIN 28.1 pg (27.0-33.0); MEAN CORPUSCULAR HGB CONC 32.4 g/dl (32.0-36.5); MEAN CORPUSCULAR VOLUME 86.5 fl (80.0-96.0); MONO # 1.6 10^3/uL (0.0-0.8); MONO % 17.6 % (2.0-8.0); NEUTROPHILS # 5.4 10^3/uL (1.5-8.5); NEUTROPHILS % 60.5 % (36.0-66.0); PLATELET COUNT, AUTOMATED 171 10^3/uL (150-450); RED BLOOD COUNT 3.85 10^6/uL (4.00-5.40)
[2024-02-09 05:53] LABS: C REACTIVE PROTEIN QUANTITATIV 28.6 MG/DL (<1.0)
[2024-02-09 05:54] LABS: CALCIUM LEVEL 8.6 MG/DL (8.3-10.6); CREATININE FOR GFR 1.1 MG/DL (0.55-1.30); GLOMERULAR FILTRATION RATE 53.6 (>45); MAGNESIUM LEVEL 1.9 MG/DL (1.8-2.4); POTASSIUM SERUM 3.5 MMOL/L (3.5-5.1)
[2024-02-09] MEDS ORDERED: FLUBLOK(EGGFREE) TRIVAL(24-25) VACCINE PF 0.5ML SYRINGE 18YRS & OLDER IM.IMMUN ONE (09:00)
[2024-02-09] MEDS: PERCOCET 5MG/325MG TAB PO PRN (11:25)
[2024-02-09 11:32] LABS: ALBUMIN 2.4 G/DL (3.2-5.2); BILIRUBIN,DIRECT 0.2 MG/DL (<0.4); BILIRUBIN,TOTAL 0.4 MG/DL (0.3-1.2); TOTAL PROTEIN 5.7 G/DL (5.7-8.2)
[2024-02-09 12:14] VITALS: BP 129/66; TEMP 97.9; O2SAT 96
[2024-02-09 16:29] VITALS: TEMP 100.9
[2024-02-09 17:28] VITALS: TEMP 101.5
[2024-02-09] MEDS ORDERED: LevoFLOXacin IV 750 MG in IV 1 EA IV SCH (18:00)
[2024-02-09 18:20] VITALS: TEMP 100.1
[2024-02-09 19:59] VITALS: BP 110/60; TEMP 99.3; O2SAT 93
[2024-02-09] MEDS ORDERED: PROMETHAZINE 25 MG TAB PO PRN (22:40)
[2024-02-10] VITALS (10 sets, daily range): BP systolic 103–130; BP diastolic 58–92; TEMP 98.5–103.4; O2SAT 89–96
[2024-02-10] MEDS: ONDANSETRON 4MG 2ML VIAL IV PRN (04:24)
[2024-02-10] MEDS: ACETAMINOPHEN *IV* 1,000 MG in IV 1 EA IV ONE ×2 (04:41→16:54)
[2024-02-10 05:02] LABS: BASO % 0.3 % (0.0-1.0); EOS % 0.1 % (0.0-3.0); HEMATOCRIT 32.8 % (36.0-47.0); HEMOGLOBIN 10.8 g/dl (12.0-15.5); LYMPH # 1.4 10^3/uL (1.5-5.0); LYMPH % 15.4 % (24.0-44.0); MEAN CORPUSCULAR HEMOGLOBIN 28.3 pg (27.0-33.0); MEAN CORPUSCULAR HGB CONC 32.9 g/dl (32.0-36.5); MEAN CORPUSCULAR VOLUME 85.9 fl (80.0-96.0); MONO # 1.5 10^3/uL (0.0-0.8); MONO % 15.9 % (2.0-8.0); NEUTROPHILS # 6.2 10^3/uL (1.5-8.5); NEUTROPHILS % 67.5 % (36.0-66.0); PLATELET COUNT, AUTOMATED 190 10^3/uL (150-450); RED BLOOD COUNT 3.82 10^6/uL (4.00-5.40); WHITE BLOOD COUNT 9.2 10^3/uL (4.0-10.0)
[2024-02-10] MEDS: KETOROLAC 30 MG/ML 1ML VIAL IV ONE (05:19)
[2024-02-10] MEDS: LR 1,000 ML IV SCH (05:19)
[2024-02-10 05:30] LABS: C REACTIVE PROTEIN QUANTITATIV 24.3 MG/DL (<1.0)
[2024-02-10 05:31] LABS: CALCIUM LEVEL 8.4 MG/DL (8.3-10.6); GLOMERULAR FILTRATION RATE 59.8 (>45); MAGNESIUM LEVEL 1.7 MG/DL (1.8-2.4); POTASSIUM SERUM 3.3 MMOL/L (3.5-5.1)
[2024-02-10 09:09] LABS: ALBUMIN 2.6 G/DL (3.2-5.2); ALKALINE PHOSPHATASE 133 U/L (46-116); ALT/SGPT 11 U/L (7.0-40); AST/SGOT 14 U/L (<34); BILIRUBIN,DIRECT 0.2 MG/DL (<0.4); BILIRUBIN,TOTAL 0.4 MG/DL (0.3-1.2); BLOOD UREA NITROGEN 14 MG/DL (9-23); CALCIUM LEVEL 8.4 MG/DL (8.3-10.6); CARBON DIOXIDE LEVEL 19 MMOL/L (20-31); CHLORIDE LEVEL 107 MMOL/L (98-107); CREATININE FOR GFR 0.96 MG/DL (0.55-1.30); GLOMERULAR FILTRATION RATE > 60.0 (>45); GLUCOSE, FASTING 140 MG/DL (74-106); MAGNESIUM LEVEL 1.7 MG/DL (1.8-2.4); POTASSIUM SERUM 3.3 MMOL/L (3.5-5.1); SODIUM LEVEL 136 MMOL/L (136-145); TOTAL PROTEIN 6.3 G/DL (5.7-8.2)
[2024-02-10 09:16] LABS: PROCALCITONIN 0.44 ng/ml
[2024-02-10] MEDS: MAG SULF 1GM/100ML (MAG RUN) 1 GM in IV 1 EA IV ONE (13:54)
[2024-02-10] MEDS: ENOXAPARIN 40MG/0.4ML SYRINGE (J1650 PER 10MG) SC ONE (14:54)
[2024-02-10] MEDS: KCL 10MEQ/100ML SWI (KRUN) 10 MEQ in IV 1 EA IV SCH (15:06)
[2024-02-10] MEDS: KCL 40MEQ in NS 1000ML 1,000 ML IV SCH (16:20)
[2024-02-10] MEDS: MEROPENEM INJ 1 GM in IV 1 EA IV SCH (17:34)
[2024-02-10] MEDS: ENOXAPARIN 80MG/0.8ML SYRINGE (J1650 PER 10MG) SC SCH (20:24)
[2024-02-11] VITALS (17 sets, daily range): BP systolic 110–134; BP diastolic 53–64; TEMP 97.9–101.9; O2SAT 85–95
[2024-02-11] MEDS ORDERED: ACETAMINOPHEN 650MG SUPP PR PRN (00:35)
[2024-02-11] MEDS: KETOROLAC 30 MG/ML 1ML VIAL IV ONE (01:04)
[2024-02-11] MEDS: ACETAMINOPHEN 325MG/10.15ML UDC PO PRN (02:58)
[2024-02-11 06:28] LABS: BASO % 0.4 % (0.0-1.0); EOS # 0.1 10^3/uL (0.0-0.5); EOS % 1.1 % (0.0-3.0); HEMATOCRIT 30.9 % (36.0-47.0); HEMOGLOBIN 10.1 g/dl (12.0-15.5); LYMPH # 2.5 10^3/uL (1.5-5.0); LYMPH % 29.2 % (24.0-44.0); MEAN CORPUSCULAR HEMOGLOBIN 28.4 pg (27.0-33.0); MEAN CORPUSCULAR HGB CONC 32.7 g/dl (32.0-36.5); MEAN CORPUSCULAR VOLUME 86.8 fl (80.0-96.0); MONO # 1.7 10^3/uL (0.0-0.8); MONO % 20.1 % (2.0-8.0); NEUTROPHILS # 4.1 10^3/uL (1.5-8.5); NEUTROPHILS % 48.4 % (36.0-66.0); PLATELET COUNT, AUTOMATED 205 10^3/uL (150-450); RED BLOOD COUNT 3.56 10^6/uL (4.00-5.40); WHITE BLOOD COUNT 8.4 10^3/uL (4.0-10.0)
[2024-02-11 06:42] LABS: C REACTIVE PROTEIN QUANTITATIV 16.7 MG/DL (<1.0)
[2024-02-11 06:58] LABS: CALCIUM LEVEL 8.2 MG/DL (8.3-10.6); CREATININE FOR GFR 1.2 MG/DL (0.55-1.30); GLOMERULAR FILTRATION RATE 48.5 (>45)
[2024-02-11] MEDS: HYDROMORPHONE HCL 0.5 MG/ 0.5 ML SYRINGE IV PRN (10:36)
[2024-02-11 12:19] LABS: ALBUMIN 2.2 G/DL (3.2-5.2); BILIRUBIN,DIRECT 0.2 MG/DL (<0.4); BILIRUBIN,TOTAL 0.4 MG/DL (0.3-1.2); TOTAL PROTEIN 5.6 G/DL (5.7-8.2)
[2024-02-11] MEDS: IBUPROFEN 100MG 5ML SUSP UDC DYE FREE PO PRN (15:21)
[2024-02-11] MEDS ORDERED: SENNA 8.6 MG TAB (SENOKOT) PO PRN (17:35)
[2024-02-11] MEDS ORDERED: MIRALAX *UNIT DOSE* 17GM PACKET PO PRN (17:35)
[2024-02-11] MEDS: LACTOBACILLUS ACIDOPHILUS CAP (BACID) PO SCH (20:40)
[2024-02-12] VITALS (15 sets, daily range): BP systolic 120–134; BP diastolic 54–66; TEMP 97.8–101.8; O2SAT 91–94
[2024-02-12 06:20] LABS: BASO % 0.3 % (0.0-1.0); EOS # 0.3 10^3/uL (0.0-0.5); EOS % 3.2 % (0.0-3.0); HEMATOCRIT 30.2 % (36.0-47.0); HEMOGLOBIN 9.8 g/dl (12.0-15.5); LYMPH # 2.7 10^3/uL (1.5-5.0); LYMPH % 30.1 % (24.0-44.0); MEAN CORPUSCULAR HEMOGLOBIN 28.6 pg (27.0-33.0); MEAN CORPUSCULAR HGB CONC 32.5 g/dl (32.0-36.5); MONO # 1.3 10^3/uL (0.0-0.8); MONO % 15.1 % (2.0-8.0); NEUTROPHILS # 4.4 10^3/uL (1.5-8.5); NEUTROPHILS % 49.7 % (36.0-66.0); PLATELET COUNT, AUTOMATED 283 10^3/uL (150-450); RED BLOOD COUNT 3.43 10^6/uL (4.00-5.40); WHITE BLOOD COUNT 8.9 10^3/uL (4.0-10.0)
[2024-02-12 06:36] LABS: BLOOD UREA NITROGEN 10 MG/DL (9-23); CALCIUM LEVEL 8.1 MG/DL (8.3-10.6); CARBON DIOXIDE LEVEL 22 MMOL/L (20-31); CHLORIDE LEVEL 111 MMOL/L (98-107); CREATININE FOR GFR 0.87 MG/DL (0.55-1.30); GLOMERULAR FILTRATION RATE > 60.0 (>45); GLUCOSE, FASTING 127 MG/DL (74-106); MAGNESIUM LEVEL 1.9 MG/DL (1.8-2.4); POTASSIUM SERUM 3.6 MMOL/L (3.5-5.1); SODIUM LEVEL 141 MMOL/L (136-145)
[2024-02-12] MEDS: metroNIDAZOLE (FLAGYL) 500MG TABLET PO SCH (13:15)
[2024-02-12] MEDS: CIPROFLOXACIN 500MG TABLET PO SCH (17:56)
[2024-02-12] MEDS: PANTOPRAZOLE 40MG TAB (PROTONIX) PO ONE (17:57)
[2024-02-13] VITALS (14 sets, daily range): BP systolic 113–140; BP diastolic 55–88; TEMP 97.4–100.4; O2SAT 91–97
[2024-02-13] MEDS: KETOROLAC 30 MG/ML 1ML VIAL IV ONE (02:14)
[2024-02-13] MEDS: LIDOCAINE 5% (LIDODERM) PATCH TD SCH (02:14)
[2024-02-13 05:58] LABS: BASO % 0.4 % (0.0-1.0); EOS # 0.5 10^3/uL (0.0-0.5); EOS % 4.7 % (0.0-3.0); HEMATOCRIT 31.5 % (36.0-47.0); HEMOGLOBIN 10.2 g/dl (12.0-15.5); LYMPH # 2.9 10^3/uL (1.5-5.0); LYMPH % 27.5 % (24.0-44.0); MEAN CORPUSCULAR HEMOGLOBIN 28.4 pg (27.0-33.0); MEAN CORPUSCULAR HGB CONC 32.4 g/dl (32.0-36.5); MEAN CORPUSCULAR VOLUME 87.7 fl (80.0-96.0); MONO # 1.4 10^3/uL (0.0-0.8); MONO % 13.4 % (2.0-8.0); NEUTROPHILS # 5.5 10^3/uL (1.5-8.5); NEUTROPHILS % 52.2 % (36.0-66.0); PLATELET COUNT, AUTOMATED 340 10^3/uL (150-450); RED BLOOD COUNT 3.59 10^6/uL (4.00-5.40); WHITE BLOOD COUNT 10.6 10^3/uL (4.0-10.0)
[2024-02-13 06:26] LABS: ALBUMIN 2.3 G/DL (3.2-5.2); ALKALINE PHOSPHATASE 131 U/L (46-116); ALT/SGPT 20 U/L (7.0-40); AST/SGOT 26 U/L (<34); BILIRUBIN,TOTAL 0.7 MG/DL (0.3-1.2); BLOOD UREA NITROGEN 9 MG/DL (9-23); CALCIUM LEVEL 8.6 MG/DL (8.3-10.6); CARBON DIOXIDE LEVEL 24 MMOL/L (20-31); CHLORIDE LEVEL 109 MMOL/L (98-107); CREATININE FOR GFR 0.83 MG/DL (0.55-1.30); GLOMERULAR FILTRATION RATE > 60.0 (>45); GLUCOSE, FASTING 122 MG/DL (74-106); MAGNESIUM LEVEL 1.9 MG/DL (1.8-2.4); POTASSIUM SERUM 3.5 MMOL/L (3.5-5.1); SODIUM LEVEL 140 MMOL/L (136-145)
[2024-02-13] MEDS: NS 1,000 ML IV SCH (10:58)
[2024-02-13] MEDS: NYSTATIN 500,000U/5ML SUSP UDC SS SCH (12:46)
[2024-02-14 03:54] VITALS: BP 124/54; TEMP 100; O2SAT 93
[2024-02-14 08:00] VITALS: BP 124/55; TEMP 99.1; O2SAT 94
[2024-02-14 09:29] LABS: BASO % 0.3 % (0.0-1.0); EOS # 0.3 10^3/uL (0.0-0.5); EOS % 2.6 % (0.0-3.0); HEMATOCRIT 30.6 % (36.0-47.0); HEMOGLOBIN 9.9 g/dl (12.0-15.5); LYMPH # 2.6 10^3/uL (1.5-5.0); LYMPH % 21.6 % (24.0-44.0); MEAN CORPUSCULAR HEMOGLOBIN 28.4 pg (27.0-33.0); MEAN CORPUSCULAR HGB CONC 32.4 g/dl (32.0-36.5); MEAN CORPUSCULAR VOLUME 87.9 fl (80.0-96.0); MONO # 1.6 10^3/uL (0.0-0.8); MONO % 13.4 % (2.0-8.0); NEUTROPHILS # 7.2 10^3/uL (1.5-8.5); NEUTROPHILS % 60.3 % (36.0-66.0); PLATELET COUNT, AUTOMATED 436 10^3/uL (150-450); RED BLOOD COUNT 3.48 10^6/uL (4.00-5.40); WHITE BLOOD COUNT 11.9 10^3/uL (4.0-10.0)
[2024-02-14 09:57] LABS: ALBUMIN 2.5 G/DL (3.2-5.2); ALKALINE PHOSPHATASE 126 U/L (46-116); ALT/SGPT 21 U/L (7.0-40); AST/SGOT 23 U/L (<34); BILIRUBIN,TOTAL 0.3 MG/DL (0.3-1.2); BLOOD UREA NITROGEN 9 MG/DL (9-23); CALCIUM LEVEL 8.2 MG/DL (8.3-10.6); CARBON DIOXIDE LEVEL 23 MMOL/L (20-31); CHLORIDE LEVEL 110 MMOL/L (98-107); CREATININE FOR GFR 0.73 MG/DL (0.55-1.30); GLOMERULAR FILTRATION RATE > 60.0 (>45); GLUCOSE, FASTING 112 MG/DL (74-106); MAGNESIUM LEVEL 1.8 MG/DL (1.8-2.4); POTASSIUM SERUM 3.4 MMOL/L (3.5-5.1); SODIUM LEVEL 140 MMOL/L (136-145); TOTAL PROTEIN 6.1 G/DL (5.7-8.2)
[2024-02-14 12:00] VITALS: BP 137/65; TEMP 98.8; O2SAT 95
[2024-02-14] MEDS: POTASSIUM CHLORIDE 10MEQ SR TABLET PO ONE (12:24)
[2024-02-14] MEDS: SUMAtriptan SUCCINATE 25 MG TAB PO ONE (12:25)
[2024-02-14 16:00] VITALS: BP 142/65; TEMP 98.6; O2SAT 93
[2024-02-14 20:00] VITALS: BP 113/66; TEMP 97.4; O2SAT 94; O2SAT 98
[2024-02-15] VITALS: BP 128/69; TEMP 97.7; O2SAT 96
[2024-02-15 04:00] VITALS: BP 131/68; TEMP 99; O2SAT 94
[2024-02-15 05:00] VITALS: O2SAT 94
[2024-02-15 05:10] VITALS: TEMP 98.9
[2024-02-15 05:44] LABS: BASO % 0.3 % (0.0-1.0); EOS # 0.3 10^3/uL (0.0-0.5); HEMATOCRIT 31.8 % (36.0-47.0); HEMOGLOBIN 10.3 g/dl (12.0-15.5); LYMPH # 2.1 10^3/uL (1.5-5.0); LYMPH % 16.2 % (24.0-44.0); MEAN CORPUSCULAR HEMOGLOBIN 28.4 pg (27.0-33.0); MEAN CORPUSCULAR HGB CONC 32.4 g/dl (32.0-36.5); MEAN CORPUSCULAR VOLUME 87.6 fl (80.0-96.0); MONO # 1.8 10^3/uL (0.0-0.8); MONO % 13.8 % (2.0-8.0); NEUTROPHILS # 8.6 10^3/uL (1.5-8.5); NEUTROPHILS % 66.2 % (36.0-66.0); PLATELET COUNT, AUTOMATED 458 10^3/uL (150-450); RED BLOOD COUNT 3.63 10^6/uL (4.00-5.40)
[2024-02-15 06:18] LABS: ALBUMIN 2.5 G/DL (3.2-5.2); ALKALINE PHOSPHATASE 118 U/L (46-116); ALT/SGPT 18 U/L (7.0-40); AST/SGOT 17 U/L (<34); BILIRUBIN,TOTAL 0.3 MG/DL (0.3-1.2); BLOOD UREA NITROGEN 9 MG/DL (9-23); CALCIUM LEVEL 8.6 MG/DL (8.3-10.6); CARBON DIOXIDE LEVEL 23 MMOL/L (20-31); CHLORIDE LEVEL 111 MMOL/L (98-107); CREATININE FOR GFR 0.75 MG/DL (0.55-1.30); GLOMERULAR FILTRATION RATE > 60.0 (>45); GLUCOSE, FASTING 134 MG/DL (74-106); MAGNESIUM LEVEL 1.9 MG/DL (1.8-2.4); POTASSIUM SERUM 3.8 MMOL/L (3.5-5.1); SODIUM LEVEL 141 MMOL/L (136-145); TOTAL PROTEIN 6.1 G/DL (5.7-8.2)
[2024-02-15 08:00] VITALS: BP 111/47; TEMP 97.5; O2SAT 99
[2024-02-15 09:00] VITALS: O2SAT 94
[2024-02-15] MEDS ORDERED: RISATAB3 PO (12:04)
[2024-02-15] MEDS ORDERED: OXYB-54 PO (12:04)
[2024-02-15] MEDS ORDERED: METR-265 PO (12:04)
[2024-02-15] MEDS ORDERED: CIPR500T39 PO (12:04)
[2024-02-15] MEDS ORDERED: ELIQ5TAB PO (12:04)
[2024-02-15 17:27] LABS: URINE STREP PNEUMONIAE ANTIGEN NOT DETECTED (NOT DETECT)
== END 2024-02-15 14:25 | disposition home or self-care (01) | DRG 689 ==
LOC: M ED 17:19 → M ED INP 21:39 → M MSPAV 02-08 15:36
PROVIDERS: ADMIT Internal Medicine; ATTEND Internal Medicine
DX: N10 Acute pyelonephritis (principal); I26.99 Other pulmonary embolism without acute cor pulmonale; G90.50 Complex regional pain syndrome I, unspecified; B37.0 Candidal stomatitis; J44.9 Chronic obstructive pulmonary disease, unspecified; K21.9 Gastro-esophageal reflux disease without esophagitis; R11.2 Nausea with vomiting, unspecified; M79.7 Fibromyalgia; J62.8 Pneumoconiosis due to other dust containing silica; E83.42 Hypomagnesemia; G89.29 Other chronic pain; E87.6 Hypokalemia; E03.9 Hypothyroidism, unspecified; F41.9 Anxiety disorder, unspecified; F32.A Depression, unspecified; Z86.718 Personal history of other venous thrombosis and embolism; Z86.711 Personal history of pulmonary embolism